=== PATIENT | male | born 1960 | race African-American/Black ===

== ENCOUNTER 2019-05-01 22:51 | Inpatient (IN) | payer OTHER ==
[~2019-05-01] VITALS: Ht 177.8 cm; Wt 117.9 kg
[2019-05-01] MEDS ORDERED: methylPREDNISolone SOD SUCC 125 MG/2ML VIAL ONE (22:59)
[2019-05-01] MEDS ORDERED: methylPREDNISolone SOD SUCC 125 MG/2ML VIAL IV ONE (23:00)
[2019-05-01] MEDS ORDERED: ALBUTEROL FS 2.5 MG/3 ML VIAL.NEB NEB ONE (23:00)
[2019-05-01] MEDS ORDERED: IPRATROPIUM NEB FS 0.5 MG/2.5 ML AMPUL.NEB NEB ONE (23:00)
--- NOTE | 2019-05-01 23:00 | NUR ---
PT [id number] C/O SOB, PER EMS PT GIVEN TREATMENT EN ROUTE, PT AXO4. PT SPEAKING IN 4-5 WORD SENTENCES. PT PUT ON THE MERCHANDISE FLOW MANAGER AND PULSE OX.
--- NOTE | 2019-05-01 23:01 | NUR ---
RT AT BEDSIDE FOR BREATHING TREATMENT.
[2019-05-01] MEDS ORDERED: IPRATROPIUM NEB FS 0.5 MG/2.5 ML AMPUL.NEB ONE (23:03)
[2019-05-01] MEDS ORDERED: ALBUTEROL FS 2.5 MG/3 ML VIAL.NEB ONE (23:03)
[2019-05-01 23:14] LABS: BASOPHILS # (AUTO) 0.1 /CMM (0.0-0.2); BASOPHILS % (AUTO) 1.2 % (0.0-2.0); HEMOGLOBIN 17.3 g/dL (13.5-17.5); LYMPHOCYTES # (AUTO) 1.9 /CMM (0.8-4.8)
[2019-05-01 23:21] LABS: CALCIUM, SERUM 8.5 mg/dL (8.5-10.1); POTASSIUM 4.1 mmol/L (3.5-5.1)
[2019-05-01 23:24] LABS: EOSINOPHILS % (AUTO) 2.2 % (0.0-6.0); HEMATOCRIT 51 % (39-51); LYMPHOCYTES % (AUTO) 17.5 % (20.0-44.0); MEAN CORPUSCULAR HGB CONC 34 g/dl (31.0-36.0); MEAN CORPUSCULAR VOLUME 84 fL (80-96); MONOCYTES # (AUTO) 0.8 /CMM (0.1-1.30); MONOCYTES % (AUTO) 7.8 % (2.0-12.0); NEUTROPHILS # (AUTO) 7.7 /CMM (1.8-8.9); NEUTROPHILS % (AUTO) 71.3 % (43.0-81.0); PLATELET COUNT (AUTO) 215 /CMM (150-450); RED BLOOD CELL COUNT(AUTO) 6.04 MIL/uL (4.5-6.0); WHITE BLOOD COUNT (AUTO) 10.8 K/uL (4.3-11.0)
[2019-05-01 23:34] LABS: ALBUMIN 3.1 g/dL (3.4-5.0); BILIRUBIN,DIRECT 0.2 mg/dL (0.0-0.2); BILIRUBIN,TOTAL 0.5 mg/dL (0.2-1.0); TOTAL PROTEIN, SERUM 6.5 g/dL (6.4-8.2)
[2019-05-02] MEDS ORDERED: ASPIRIN 325 MG TABLET PO ONE
--- NOTE | 2019-05-02 00:42 | NUR ---
PT RESTING IN BED, NAD NOTED. WILL CONTINUE TO MONITOR.
[2019-05-02] MEDS ORDERED: MAGNESIUM HYDROXIDE 30 ML UDC PO PRN (01:00)
[2019-05-02] MEDS ORDERED: ALBUTEROL FS 2.5 MG/3 ML VIAL.NEB NEB PRN (01:00)
[2019-05-02] MEDS ORDERED: ZOLPIDEM TARTRATE 5 MG TABLET PO PRN (01:00)
[2019-05-02] MEDS ORDERED: HYDROCODONE/APAP 5/325MG 1 EACH TABLET PO PRN (01:00)
[2019-05-02] MEDS ORDERED: ACETAMINOPHEN 325 MG TABLET PO PRN (01:00)
[2019-05-02] MEDS ORDERED: Z GUARD REMEDY 2 OZ OINT TP PRN (01:00)
[2019-05-02] MEDS ORDERED: MAG HYDROX/AL HYDROX/SIMETH 30 ML UDC PO PRN (01:00)
[2019-05-02] MEDS ORDERED: IPRATROPIUM NEB FS 0.5 MG/2.5 ML AMPUL.NEB NEB PRN (01:00)
[2019-05-02] MEDS ORDERED: ONDANSETRON HCL/PF 4 MG/2 ML VIAL IVP PRN (01:00)
--- NOTE | 2019-05-02 01:15 | NUR ---
REPORT GIVEN TO JOAQUÍN HONG FOR GASTON.
--- NOTE | 2019-05-02 01:45 | NUR ---
RN ADMITTING NOTES RECEIVED REPORT FROM MAIN LINE ASSEMBLER DELFINO. Pt ARRIVED TO THE FLOOR VIA GURNEY, WAS ABLE TO AMB TO THE ROOM BED WITH STEADY GAIT. Pt IS A/OX4, VERBAL, ABLE TO MAKE NEEDS KNOWN. Pt PLACED ON O2 3L VIA NC D/T SOB. IV ACCESS ON R WRIST #20G. PLACED ON TELE MONITOR; READING SR 90. SAFETY MEASURES IN PLACE. BED LOW, LOCKED, HOB ELEVATED, SIDE RAILS UP, CALL LIGHT AND BEDSIDE TABLE WITHIN REACH. WILL CONTINUE TO MONITOR Pt's CONDITION AND SAFETY THROUGHOUT THE REST OF THE SHIFT.
[2019-05-02] MEDS ORDERED: DEXTROSE 50%-WATER 50 ML DISP.SYRIN IV PRN (03:30)
[2019-05-02] MEDS ORDERED: CARV12.5 PO (03:48)
[2019-05-02] MEDS ORDERED: FURO-144 PO (03:48)
[2019-05-02] MEDS ORDERED: LOSA25TA27 PO (03:48)
[2019-05-02] MEDS ORDERED: INSU100I40 SQ (03:48)
[2019-05-02] MEDS ORDERED: ASPI-1152 PO (03:48)
[2019-05-02] MEDS ORDERED: POTA-88 PO (03:48)
[2019-05-02] MEDS ORDERED: ATOR40TA PO (03:48)
[2019-05-02] MEDS ORDERED: ISOS60TA4 PO (03:48)
[2019-05-02] MEDS ORDERED: INSU100I26 SQ (03:48)
[2019-05-02 04:00] VITALS: BP 141/103
--- NOTE | 2019-05-02 06:35 | NUR ---
RN NOTES AC ACCUCHECK BG 177. ADMINISTERED 3UN OF INSULIN PER SLIDING SCALE.
[2019-05-02] MEDS: BLOOD SUGAR DIAGNOSTIC 1 EACH STRIP IN SCH ×4 (06:45→21:28)
[2019-05-02] MEDS: INSULIN REGULAR, HUMAN 100 UNIT/ML 3 ML VIAL SQ PRN ×4 (06:46→21:27)
--- NOTE | 2019-05-02 06:55 | NUR ---
RN CLOSING NOTES NO SIGNIFICANT CHANGES IN Pt's CONDITION. Pt REMAINS STABLE PER BASELINE AT THIS TIME. NO S/S OF ACUTE DISTRESS NOTED DURING THE NIGHT. Pt's SOB HAS RESOLVED. Pt HAS NOT C/O ANY CP OR SOB DURING THE NIGHT. Pt IS RESTING IN BED WITH UNLABORED RESPIRATIONS, WITH EQUAL CHEST RISE AND FALL. ON 3L O2 VIA NC. ALL NEEDS MET AND ATTENDED TO. SAFETY MEASURES IN PLACE. WILL ENDORSE TO DAYSHIFT RN FOR Pt's GASTON.
[2019-05-02] MEDS ORDERED: BLOOD SUGAR DIAGNOSTIC 1 EACH STRIP IN SCH ×2 (07:30)
--- NOTE | 2019-05-02 07:45 | NUR ---
RN OPENING NOTES RECEIVED PATIENT IN BED RESTING COMFORTABLY IN MODERATE HIGH BACK REST. ON RA, NO SOB NOTED AT THIS TIME. IV ACCESS ON RIGHT WRIST #20, CURRENTLY ON SL. PATENT AND INTACT. SAFETY MEASURES IN PLACE, BED IN LOW LOCKED POSITION WITH SIDE RAILS UP X2. CALL LIGHT WITHIN REACH. WILL CONTINUE TO MONITOR.
[2019-05-02 08:00] VITALS: BP 137/87
[2019-05-02] MEDS: FUROSEMIDE 40 MG/4 ML VIAL IV SCH ×3 (08:56→15:51)
[2019-05-02] MEDS: methylPREDNISolone SOD SUCC 40 MG/ML VIAL IV SCH ×3 (08:58→16:13)
[2019-05-02] MEDS: ASPIRIN EC 81 MG TABLET.DR PO SCH (08:58)
[2019-05-02] MEDS: hydrALAZINE HCL 50 MG TABLET PO SCH ×3 (08:58→16:13)
[2019-05-02] MEDS: ENOXAPARIN SODIUM 40 MG/0.4 ML DISP.SYRIN SQ SCH (09:01)
[2019-05-02] MEDS: NITROGLYCERIN 30 GM TUBE TP SCH ×3 (09:13→20:38)
[2019-05-02 09:18] LABS: THYROID STIMULATING HORMONE 0.535 uIU/mL (0.358-3.74)
[2019-05-02 16:00] VITALS: BP 140/90
--- NOTE | 2019-05-02 18:34 | NUR ---
MS RN CLOSING NOTES PATIENT IN BED RESTING COMFORTABLY IN MODERATE HIGH BACK REST. ON OXYGEN 3LPM VIA NC, NO SOB NOTED AT THIS TIME. IV ACCESS ON RIGHT WRIST #20, CURRENTLY ON SL. PATENT AND INTACT. SAFETY MEASURES IN PLACE, BED IN LOW LOCKED POSITION WITH SIDE RAILS UP X2. CALL LIGHT WITHIN REACH. WILL ENDORSED TO PLATE COLORER NURSE FOR GASTON.
--- NOTE | 2019-05-02 19:30 | NUR ---
RN MS OPENING NOTES RECEIVED PATIENT IN BED AWAKE, ALERT AND ORIENTED X4, VERBALLY RESPONSIVE, ABLE TO MAKE NEEDS KNOWN. BREATHING EVEN AND UNLABORED. NO SOB NOTED. ON 3LPM VIA NC. DENIES ANY PAIN OR DISCOMFORT. NO CHEST PAIN. NO N/V. IV ON RIGHT WRIST INTACT AND PATENT. SKIN DRY WARM TO TOUCH. AFEBRILE. ALL OTHER NEEDS ATTENDED TO. SAFETY MEASURES IN PLACE. CALL LIGHT WITHIN REACH. WILL CONTINUE TO MONITOR.
[2019-05-02 20:00] VITALS: BP 148/91
--- NOTE | 2019-05-02 20:12 | NUR ---
Met with patient, states he lives alone locally in [facility]. He is ambulatory and independent with adl's. Denies having DME or homehealth services. His pcp is in [facility] and he is planning to switch his insurance group. States he will need assistance with transportation to return home upon discharge. Addendum: 05/02/19 at 2012 by YOHAN REBOLLEDO RN Amended: Links added.
--- NOTE | 2019-05-02 20:38 | NUR ---
RN MS NOTES PATIENT REFUSED NITRO OINTMENT. PER PATIENT, IT MAKES HIS BLOOD PRESSURE "REALLY LOW". INFORMED PATIENT THAT I CAN CHECK HIS BLOOD PRESSURE THROUGHOUT THE NIGHT BUT PATIENT STILL REFUSED. EXPLAINED RISKS AND BENEFITS BUT STILL REFUSED. WILL CONTINUE TO MONITOR.
--- NOTE | 2019-05-03 01:00 | NUR ---
RN MS NOTES PATIENT SLEEPING. NOT IN ANY DISTRESS. BREATHING EVEN AND UNLABORED. NO S/S OF PAIN OR DISCOMFORT. WILL CONTINUE TO MONITOR.
[2019-05-03 06:27] LABS: BASOPHILS % (AUTO) 0.2 % (0.0-2.0); HEMATOCRIT 56 % (39-51); HEMOGLOBIN 18.8 g/dL (13.5-17.5); LYMPHOCYTES % (AUTO) 5.7 % (20.0-44.0); MEAN CORPUSCULAR HGB CONC 33 g/dl (31.0-36.0); MEAN CORPUSCULAR VOLUME 84 fL (80-96); MONOCYTES # (AUTO) 0.9 /CMM (0.1-1.30); MONOCYTES % (AUTO) 5.4 % (2.0-12.0); NEUTROPHILS # (AUTO) 15.5 /CMM (1.8-8.9); NEUTROPHILS % (AUTO) 88.7 % (43.0-81.0); PLATELET COUNT (AUTO) 241 /CMM (150-450); RED BLOOD CELL COUNT(AUTO) 6.71 MIL/uL (4.5-6.0); WHITE BLOOD COUNT (AUTO) 17.5 K/uL (4.3-11.0)
[2019-05-03] MEDS: BLOOD SUGAR DIAGNOSTIC 1 EACH STRIP IN SCH ×2 (06:43→12:17)
[2019-05-03] MEDS: INSULIN REGULAR, HUMAN 100 UNIT/ML 3 ML VIAL SQ PRN ×2 (06:44→12:18)
[2019-05-03 06:49] LABS: BILIRUBIN,TOTAL 0.6 mg/dL (0.2-1.0); CALCIUM, SERUM 8.9 mg/dL (8.5-10.1); CREATININE 0.8 mg/dL (0.6-1.3); PHOSPHORUS 3.7 mg/dL (2.5-4.9); POTASSIUM 3.5 mmol/L (3.5-5.1); TOTAL PROTEIN, SERUM 6.8 g/dL (6.4-8.2)
[2019-05-03 06:50] LABS: THYROID STIMULATING HORMONE 0.333 uIU/mL (0.358-3.74)
--- NOTE | 2019-05-03 06:55 | NUR ---
RN MS CLOSING NOTES PATIENT RESTING IN BED. NO ACUTE CHANGES THROUGHOUT SHIFT. BREATHING EVEN AND UNLABORED. NO SOB NOTED. ON 3LPM VIA NC. NO COMPLAINTS OF PAIN OR DISCOMFORT. NO CHEST PAIN. IV ON RIGHT WRIST INTACT AND PATENT. ALL OTHER NEEDS ATTENDED TO. SAFETY MEASURES IN PLACE. CALL LIGHT WITHIN REACH. WILL ENDORSE TO ONCOMING NURSE FOR GASTON.
--- NOTE | 2019-05-03 07:35 | NUR ---
MS RN NOTES PATIENT IN BED ALERT ORIENTED X 4. NO ACUTE DISTRESS NOTED. BREATHING UNLABORED. NO SOB NOTED. IV ACCESS PATENT, NO REDNESS, NO SWELLING NOTED. SAFETY MEASURES IN PLACE, CALL LIGHT WITHIN REACH. WILL CONTINUE TO MONITOR ACCORDINGLY.
[2019-05-03 07:38] LABS: LYMPHOCYTES % (MANUAL) 8 % (16-48); MONOCYTES % (MANUAL) 2 % (0-11.0); NEUTROPHILS % (MANUAL) 90 (42-76)
[2019-05-03 08:00] VITALS: BP 125/91
[2019-05-03] MEDS ORDERED: POTASSIUM CHLORIDE 20 MEQ TAB.PRT.SR PO SCH (09:00)
[2019-05-03] MEDS ORDERED: FUROSEMIDE 40 MG TABLET PO SCH (09:00)
[2019-05-03] MEDS ORDERED: ISOSORBIDE DINITRATE (20MG) 20 MG TABLET PO SCH (09:00)
[2019-05-03] MEDS: ENOXAPARIN SODIUM 40 MG/0.4 ML DISP.SYRIN SQ SCH (09:13)
[2019-05-03] MEDS: methylPREDNISolone SOD SUCC 40 MG/ML VIAL IV SCH ×2 (09:14→12:17)
[2019-05-03] MEDS: ASPIRIN EC 81 MG TABLET.DR PO SCH (09:15)
[2019-05-03] MEDS: hydrALAZINE HCL 50 MG TABLET PO SCH ×2 (09:18→12:16)
--- NOTE | 2019-05-03 12:05 | NUR ---
MS RN NOTES SEEN AND EVALUATED BY SLY JACOBS NP WITH NEW ORDERS MADE, NOTED AND CARRIED OUT.
[2019-05-03] MEDS ORDERED: PRED20TA PO (12:11)
[2019-05-03] MEDS ORDERED: HYDR-4077 PO (12:11)
[2019-05-03] MEDS ORDERED: ALBU18HF2 INH (12:11)
[2019-05-03 12:16] VITALS: BP 118/75
--- NOTE | 2019-05-03 14:10 | NUR ---
MS RN NOTES PATIENT DISCHARGED HOME WITH STABLE VITAL SIGNS, NO ACUTE DISTRESS NOTED. BREATHING UNLABORED , NO SOB NOTED. DISCHARGE INSTRUCTIONS GIVEN TO THE PATIENT INCLUDING FOLLOW UP APPOINTMENT AND NEW PRESCRIPTIONS, VERBALIZED UNDERSTANDING. ALL BELONGINGS ACCOUNTED FOR INCLUDING HOME MEDICATIONS FROM PHARMACY. IV ACCESS REMOVED, NO REDNESS, NO SWELLING, NO BLEEDING NOTED. SKIN IS INTACT. ASSISTED TO THE LOBBY, PICKED UP VIA PRIVATE CAR BY [employer] IN STABLE CONDITION.
== END 2019-05-03 14:10 | disposition home or self-care (01) | DRG 194 ==
LOC: ER 22:53 → TELE 05-02 00:48 → MED 05-02 12:27
PROVIDERS: ADMIT Nurse Practitioner Acute Care; ATTEND Nurse Practitioner Acute Care
DX: I11.0 Hypertensive heart disease with heart failure (principal); I21.A1 Myocardial infarction type 2; J44.1 Chronic obstructive pulmonary disease with (acute) exacerbation; I50.23 Acute on chronic systolic (congestive) heart failure; E11.9 Type 2 diabetes mellitus without complications; E66.9 Obesity, unspecified; F17.210 Nicotine dependence, cigarettes, uncomplicated; Z68.37 Body mass index [BMI] 37.0-37.9, adult; G47.33 Obstructive sleep apnea (adult) (pediatric); Z79.4 Long term (current) use of insulin
CPT/HCPCS: 36415; 71045-TC; 80048-TC; 80053-TC; 80061-TC; 80076-TC; 82962-TC; 83735-TC; 83880; 84100-TC; 84439-TC; 84443-TC; 84484-TC; 85025-TC; 87081-TC; 93307-TC; G0378; J1650; J1815; J1940; J2920; J2930

== ENCOUNTER 2019-09-24 08:29 | Inpatient (IN) | payer OTHER ==
[~2019-09-24] VITALS: Ht 177.8 cm; Wt 120.2 kg
[~2019-09-24 08:29] MED LIST: ALBU18HF2 INH; ASPI-1152 PO; ATOR40TA PO; CARV12.5 PO; FURO-144 PO; HYDR-4077 PO; INSU100I26 SQ; INSU100I40 SQ; ISOS60TA4 PO; LOSA25TA27 PO; POTA-88 PO; PRED20TA PO
--- NOTE | 2019-09-24 10:45 | NUR ---
RN ADMITTING NOTES ADMITTED A 59 YEARS OLD, M FROM [place], ACCOMPANIED BY 2 AMBULANCE STAFF, A/ O X4. ABLE TO MAKE NEEDS KNOWN. NO COMPLAIN OF PAIN OR DISCOMFORT AT THIS TIME. PATIENT ORIENTED TO UNIT, ROOM AND STAFF. ON OXYGEN 2LPM VIA NC. NO SIGNS OF DISTRESS NOTED AT THIS TIME. V/S TAKEN AND RECORDED. PHYSICAL ASSESSMENT DONE, PHOTOS OF SKIN ISSUES FILED ON CHART. IV ACCESS ON R HAND# 20, SL. ON TELE MONITORING WITH CURRENT READING OF ST WITH HR OF 107. SAFETY MEASURES INITIATED, BED PLACED IN LOWEST LOCKED POSITION WITH SIDE RAILS UP X2. CALL LIGHT PLACED WITHIN EASY REACH. WILL CONTINUE TO MONITOR.
[2019-09-24] MEDS ORDERED: INSU100V36 SQ (10:50)
[2019-09-24] MEDS ORDERED: LISI-607 PO (10:50)
[2019-09-24] MEDS ORDERED: SPIR25TA6 PO (10:50)
[2019-09-24 12:00] VITALS: BP 104/74
[2019-09-24] MEDS ORDERED: MAGNESIUM HYDROXIDE 30 ML UDC PO PRN (13:30)
[2019-09-24] MEDS ORDERED: MAG HYDROX/AL HYDROX/SIMETH 30 ML UDC PO PRN (13:30)
[2019-09-24] MEDS ORDERED: ALBUTEROL FS 2.5 MG/0.5 ML VIAL.NEB NEB PRN (13:30)
[2019-09-24] MEDS ORDERED: DEXTROSE 50%-WATER 50 ML DISP.SYRIN IV PRN (13:30)
[2019-09-24] MEDS ORDERED: Z GUARD REMEDY 2 OZ OINT TP PRN (13:30)
[2019-09-24] MEDS ORDERED: ONDANSETRON HCL/PF 4 MG/2 ML VIAL IVP PRN (13:30)
[2019-09-24] MEDS ORDERED: LORAZEPAM 1 MG TABLET PO PRN (13:30)
[2019-09-24] MEDS ORDERED: ACETAMINOPHEN 325 MG TABLET PO PRN (13:30)
[2019-09-24] MEDS: FUROSEMIDE 40 MG/4 ML VIAL IV SCH ×2 (13:41→17:00)
[2019-09-24 14:10] LABS: HEMATOCRIT 53 % (39-51); HEMOGLOBIN 17.5 g/dL (13.5-17.5); LYMPHOCYTES # (AUTO) 0.4 /CMM (0.8-4.8); LYMPHOCYTES % (AUTO) 3.3 % (20.0-44.0); MEAN CORPUSCULAR HGB CONC 33 g/dl (31.0-36.0); MEAN CORPUSCULAR VOLUME 85 fL (80-96); MONOCYTES # (AUTO) 0.1 /CMM (0.1-1.30); MONOCYTES % (AUTO) 0.7 % (2.0-12.0); NEUTROPHILS # (AUTO) 10.3 /CMM (1.8-8.9); PLATELET COUNT (AUTO) 217 /CMM (150-450); RED BLOOD CELL COUNT(AUTO) 6.26 MIL/uL (4.5-6.0); WHITE BLOOD COUNT (AUTO) 10.7 K/uL (4.3-11.0)
[2019-09-24 14:17] LABS: CALCIUM, SERUM 8.6 mg/dL (8.5-10.1); CREATININE 1.3 mg/dL (0.6-1.3); POTASSIUM 4.3 mmol/L (3.5-5.1)
[2019-09-24 14:34] LABS: LYMPHOCYTES % (MANUAL) 4 % (16-48); MONOCYTES % (MANUAL) 1 % (0-11.0); NEUTROPHILS % (MANUAL) 95 (42-76)
[2019-09-24] MEDS: ALBUTEROL HALF STRENGTH 1.25 MG/3 ML VIAL.NEB NEB SCH ×2 (15:30→20:17)
[2019-09-24] MEDS ORDERED: IPRATROPIUM NEB FS 0.5 MG/2.5 ML AMPUL.NEB NEB PRN (15:30)
[2019-09-24 16:00] VITALS: BP 108/58
[2019-09-24] MEDS: BLOOD SUGAR DIAGNOSTIC 1 EACH STRIP VI SCH ×2 (16:59→21:42)
[2019-09-24] MEDS: CARVEDILOL 12.5 MG TABLET PO SCH (17:00)
[2019-09-24] MEDS: INSULIN REGULAR, HUMAN 100 UNIT/ML 3 ML VIAL SQ PRN (17:03)
[2019-09-24] MEDS: methylPREDNISolone SOD SUCC 125 MG/2ML VIAL IV SCH ×2 (17:04→20:55)
--- NOTE | 2019-09-24 18:51 | NUR ---
TELE CLOSING NOTES PATIENT IN BED RESTING COMFORTABLY IN MODERATE HIGH BACK REST, A/ O X4. ABLE TO MAKE NEEDS KNOWN. NO SIGNS OF DISTRESS NOTED THROUGHOUT THE SHIFT. ON OXYGEN 2LPM VIA NC. IV ACCESS ON R HAND# 20, SL. ON TELE MONITORING WITH CURRENT READING OF ST WITH HR OF 100'S. SAFETY MEASURES IN PLACE, BED IN LOWEST LOCKED POSITION WITH SIDE RAILS UP X2. CALL LIGHT WITHIN EASY REACH. WILL ENDORSE TO JACK OF ALL TRADES NURSE FOR GASTON.
--- NOTE | 2019-09-24 19:45 | NUR ---
BANKMAN OPENING NOTES RECEIVED PATIENT FROM MORNING SHIFT ALERT AND ORIENTED X 4. VERBALLY RESPONSIVE AND ABLE TO FOLLOW DIRECTIONS. BREATHING REGULAR AND UNLABORED ON OXYGEN AT 2L/MIN VIA NASAL CANNULA. RIGHT HAND G20 IV LINE INTACT AND PATENT, FLUSHING WELL WITH NO BLEEDING OR S/S OF INFECTION/INFILTRATION NOTED. BODY ASSESSMENT DONE, SEEN WITH SKIN DRYNESS BUT REMAINED INTACT AND CLEAN. NO COMPLAINTS OF PAIN/DISCOMFORT REPORTED OF THE TIME. BED LOW AND LOCKED ON SEMI FOWLERS POSITION. CALL LIGHT IN REACH. WILL CONTINUE TO MONITOR.
[2019-09-24] MEDS: HYDROCODONE/APAP 5/325MG 1 EACH TABLET PO PRN (21:27)
--- NOTE | 2019-09-24 21:30 | NUR ---
SENIOR MANAGER ASSET PROTECTION NOTES COMPLAINED OF 8/10 LOWER BACK PAIN. NORCO 5/325 GIVEN BY MOUTH. NON-PHARMACOLOGICAL INTERVENTIONS PROVIDED. VITAL SIGNS CLOSELY MONITORED.
[2019-09-24] MEDS: *INSULIN REGULAR(HUMULIN R)HUM 100 UNIT/ML VIAL SQ PRN (21:43)
[2019-09-24 22:00] VITALS: BP 88/53
--- NOTE | 2019-09-24 22:00 | NUR ---
CHICKEN FANCIER NOTES BS 188mg/dl, 3UNITS REGULAR INSULIN GIVEN SQ. SNACKS PROVIDED. WILL CONTINUE TO MONITOR.
[2019-09-25] MEDS: ALBUTEROL HALF STRENGTH 1.25 MG/3 ML VIAL.NEB NEB SCH ×6 (00:07→20:32)
[2019-09-25] MEDS: HYDROCODONE/APAP 5/325MG 1 EACH TABLET PO PRN ×4 (02:36→20:07)
--- NOTE | 2019-09-25 02:45 | NUR ---
POULTRY FARM LABORER NOTES COMPLAINED OF 8/10 LOWER BACK PAIN. NORCO 5/325 GIVEN BY MOUTH. NON-PHARMACOLOGICAL INTERVENTIONS PROVIDED. VITAL SIGNS WNL. WILL CONTINUE TO MONITOR.
[2019-09-25] MEDS: CEFTRIAXONE 1 G in IV D5W 50 ML IV SCH (04:12)
--- NOTE | 2019-09-25 06:30 | NUR ---
CITY PLANNING AIDE CLOSING NOTES PATIENT IN BED ALERT AND ORIENTED X 4. VERBALLY RESPONSIVE AND ABLE TO FOLLOW DIRECTIONS. BREATHING REGULAR AND UNLABORED ON OXYGEN AT 2L/MIN VIA NASAL CANNULA. RIGHT HAND G20 IV LINE INTACT AND FLUSHING WELL. ON IV ANTIBIOTIC WITH NO ADVERSE REACTIONS NOTED. NO COMPLAINTS OF PAIN/DISCOMFORT REPORTED OF THE TIME. BED LOW AND LOCKED ON SEMI FOWLERS POSITION. CALL LIGHT IN REACH. WILL ENDORSE TO MORNING SHIFT FOR GASTON.
[2019-09-25 07:18] LABS: BASOPHILS % (AUTO) 0.1 % (0.0-2.0); HEMATOCRIT 50 % (39-51); HEMOGLOBIN 16.3 g/dL (13.5-17.5); LYMPHOCYTES # (AUTO) 0.6 /CMM (0.8-4.8); LYMPHOCYTES % (AUTO) 4.3 % (20.0-44.0); MEAN CORPUSCULAR HGB CONC 33 g/dl (31.0-36.0); MEAN CORPUSCULAR VOLUME 84 fL (80-96); MONOCYTES # (AUTO) 0.4 /CMM (0.1-1.30); MONOCYTES % (AUTO) 2.5 % (2.0-12.0); NEUTROPHILS # (AUTO) 13.7 /CMM (1.8-8.9); NEUTROPHILS % (AUTO) 93.1 % (43.0-81.0); PLATELET COUNT (AUTO) 235 /CMM (150-450); WHITE BLOOD COUNT (AUTO) 14.7 K/uL (4.3-11.0)
--- NOTE | 2019-09-25 07:30 | NUR ---
SCOURING PADS SUPERVISOR NOTES PT IN BED, AWAKE, ALERT AND ORIENTED, NOT IN DISTRESS, STATED THAT HIS BREATHING IS BETTER TODAY, WITH COMPLAINT OF KNEES AND BACK PAIN, NEEDS ATTENDED, CALL LIGHT WITHIN REACH.
[2019-09-25 07:31] LABS: CALCIUM, SERUM 8.5 mg/dL (8.5-10.1); PHOSPHORUS 3.5 mg/dL (2.5-4.9); POTASSIUM 3.9 mmol/L (3.5-5.1)
[2019-09-25 08:00] VITALS: BP 126/93
[2019-09-25] MEDS: methylPREDNISolone SOD SUCC 125 MG/2ML VIAL IV SCH ×4 (08:12→20:07)
[2019-09-25] MEDS: SPIRONOLACTONE 25 MG TABLET PO SCH (08:12)
[2019-09-25] MEDS: ASPIRIN EC 81 MG TABLET.DR PO SCH (08:12)
[2019-09-25] MEDS: CARVEDILOL 12.5 MG TABLET PO SCH ×2 (08:12→16:15)
[2019-09-25] MEDS: FUROSEMIDE 40 MG/4 ML VIAL IV SCH ×5 (08:12→20:07)
[2019-09-25] MEDS: INSULIN REGULAR, HUMAN 100 UNIT/ML 3 ML VIAL SQ PRN ×3 (08:21→16:50)
[2019-09-25] MEDS: BLOOD SUGAR DIAGNOSTIC 1 EACH STRIP VI SCH ×4 (08:22→23:28)
[2019-09-25] MEDS: LISINOPRIL (5MG) 5 MG TABLET PO SCH (09:00)
[2019-09-25 12:00] VITALS: BP 100/79
[2019-09-25] MEDS: POTASSIUM CHLORIDE 20 MEQ TAB.PRT.SR PO SCH ×3 (12:46→16:19)
[2019-09-25] MEDS: ATORVASTATIN 40 MG TABLET PO SCH (12:46)
--- NOTE | 2019-09-25 13:00 | NUR ---
MATZO FORMING MACHINE OPERATOR NOTES PT AWAKE, SITTING IN HIS CHAIR, PAIN MEDS GIVEN FOR PAIN MANAGEMENT, COMPLIANT WITH MEDICATIONS, CALL LIGHT WITHIN REACH, SEEN BY DR. GRACIA, PLAN OF CARE DISCUSSED WITH PT, VERBALIZED UNDERSTANDING.
[2019-09-25 16:00] VITALS: BP 98/71
--- NOTE | 2019-09-25 16:20 | NUR ---
BILINGUAL TEACHER NOTES LASIX GIVEN PER ORDER OF DR. GRACIA.
--- NOTE | 2019-09-25 17:55 | NUR ---
REAL ESTATE INSTRUCTOR NOTES PT AWAKE, SITTING IN HIS CHAIR, NO COMPLAINT OF PAIN AT THIS TIME, RESPIRATIONS NORMAL, CALL LIGHT WITHIN REACH, SEEN BY DR. RUSSO, PLAN OF CARE DISCUSSED WITH PT. VERBALIZED UNDERSTANDING, NEEDS ATTENDED, PM MEDS GIVEN.
[2019-09-25 20:00] VITALS: BP 114/64
--- NOTE | 2019-09-25 20:08 | NUR ---
tele/rn notes PATIENT REPORTED PAIN 9/10 IN KNEE AND LOWER BACK WHILE SITTING, ALERT, ORIENTED X3, OFFLOAD, RESPIRATIONS EVEN AND UNLABORED, BED LOCKEC,NORCO 5325 MG PO TO BE GIVEN, B/P CHECK AND WNL. WILL MONITOR.RECEIVED ENDORSEMENT FROM AM RN FOR GASTON
--- NOTE | 2019-09-25 21:39 | NUR ---
TELE/RN NOTES PATIENT WITH ST AT 101. ALERT, ORIENTED, REPORTED RIGHT HAND IV SITE SOME REDNESS, TO REINSERT NEW IV PREFERED TO HAVE IT LATER TIME AT THE SAME SITE WILL ASSESS AND CHECK AND MONITOR FOR ANY CHANGES.
[2019-09-25] MEDS: *INSULIN REGULAR(HUMULIN R)HUM 100 UNIT/ML VIAL SQ PRN (23:37)
--- NOTE | 2019-09-25 23:47 | NUR ---
TELE/RN NOTES PATIENT WAS INFORMED ABOUT MANAGING EXACERBATION AND DM MANAGEMENT, WITH MD ORDER FOR STRICT INTAKE AND OUTPUT, VERBALIZED UNDERSTANDING BUT NON COMPLIANT SON HIEU A LARGE AMOUNT OF JUICE AT BEDSIDE AND ALSO PATIENT UNABLE TO FOLLOW DIETARY ORDER EVEN WITH CONSSTANT EDUCATION, BLOOD SUGAR CHECK AT PREFERED TIME AND RESULT HIGH THAT PATIENT STATED HE GETS TO HAVE 10 UNITS OF REGULAR INSULIN 3 X A DAY AND TWICE A DAY OF 30 UNIT WITH LONG ACTING INSULIN. REPORTED THAT HE MIGHT BE LEAVING [place].
[2019-09-26] VITALS: BP 115/44
[2019-09-26] MEDS: ALBUTEROL HALF STRENGTH 1.25 MG/3 ML VIAL.NEB NEB SCH ×5 (00:18→15:14)
[2019-09-26] MEDS: HYDROCODONE/APAP 5/325MG 1 EACH TABLET PO PRN ×2 (01:17→08:43)
[2019-09-26] MEDS: CEFTRIAXONE 1 G in IV D5W 50 ML IV SCH (04:09)
--- NOTE | 2019-09-26 07:36 | NUR ---
TELE/RN CLOSING NOTES PATIENT AWAKE, ALERT X3, ABLE TO VERBALIZE NEEDS, ALL NEEDS ATTENDED, CALL LIGHTS WITHIN REACH. BED LOCKED. ENDORSED TO AM RN FOR GASTON.
[2019-09-26] MEDS: BLOOD SUGAR DIAGNOSTIC 1 EACH STRIP VI SCH ×2 (07:47→12:24)
[2019-09-26 07:58] LABS: BASOPHILS % (AUTO) 0.1 % (0.0-2.0); HEMATOCRIT 53 % (39-51); HEMOGLOBIN 17.5 g/dL (13.5-17.5); LYMPHOCYTES # (AUTO) 0.9 /CMM (0.8-4.8); LYMPHOCYTES % (AUTO) 4.1 % (20.0-44.0); MEAN CORPUSCULAR HGB CONC 33 g/dl (31.0-36.0); MEAN CORPUSCULAR VOLUME 85 fL (80-96); MONOCYTES # (AUTO) 0.6 /CMM (0.1-1.30); MONOCYTES % (AUTO) 2.7 % (2.0-12.0); NEUTROPHILS # (AUTO) 20.3 /CMM (1.8-8.9); NEUTROPHILS % (AUTO) 93.1 % (43.0-81.0); PLATELET COUNT (AUTO) 249 /CMM (150-450); RED BLOOD CELL COUNT(AUTO) 6.21 MIL/uL (4.5-6.0); WHITE BLOOD COUNT (AUTO) 21.9 K/uL (4.3-11.0)
[2019-09-26 08:00] VITALS: BP 106/53
[2019-09-26] MEDS: INSULIN REGULAR, HUMAN 100 UNIT/ML 3 ML VIAL SQ PRN ×2 (08:12→12:30)
[2019-09-26 08:17] LABS: BILIRUBIN,TOTAL 0.5 mg/dL (0.2-1.0); CALCIUM, SERUM 8.7 mg/dL (8.5-10.1); MAGNESIUM 2.2 mg/dL (1.8-2.4); PHOSPHORUS 3.1 mg/dL (2.5-4.9); POTASSIUM 4.5 mmol/L (3.5-5.1); TOTAL PROTEIN, SERUM 6.9 g/dL (6.4-8.2)
[2019-09-26] MEDS: CARVEDILOL 12.5 MG TABLET PO SCH (08:44)
[2019-09-26] MEDS: ASPIRIN EC 81 MG TABLET.DR PO SCH (08:44)
[2019-09-26] MEDS: ATORVASTATIN 40 MG TABLET PO SCH (08:45)
[2019-09-26] MEDS: methylPREDNISolone SOD SUCC 125 MG/2ML VIAL IV SCH ×2 (08:47→12:33)
[2019-09-26] MEDS: FUROSEMIDE 40 MG/4 ML VIAL IV SCH (08:49)
[2019-09-26] MEDS: LISINOPRIL (5MG) 5 MG TABLET PO SCH (09:00)
[2019-09-26] MEDS: SPIRONOLACTONE 25 MG TABLET PO SCH (09:00)
[2019-09-26] MEDS ORDERED: METOLAZONE 2.5 MG TABLET PO SCH (09:30)
[2019-09-26] MEDS ORDERED: BUMETANIDE INJ 16 MG in IV NS 0.9% 16 ML IV ONE (09:30)
[2019-09-26 13:28] VITALS: BP 101/71
--- NOTE | 2019-09-26 16:21 | NUR ---
SUBSTANCE ADDICTION COORDINATOR NOTES PATIENT LEFT AMA , DR CALLOWAY NOTIFIED. IV REMOVED, BELONGINGS RETURNED INCLUDE MEDS. SON AT THE BED SIDE AND HE IS GOING TO TRANSFER THE PATIENT.
--- NOTE | 2019-09-26 17:00 | NUR ---
STRIPING MACHINE OPERATOR NOTES RECEIVED A NOTE FROM WADE [employer] WITH [employer] JOHN PAUL. INFORMED PROFESSOR OF MARKETING TO FOLLOW UP WITH THE ORDER.
== END 2019-09-26 15:45 | disposition left against medical advice (07) | DRG 140 ==
LOC: TELE1 10:27
PROVIDERS: ADMIT Internal Medicine; ATTEND Internal Medicine
DX: J44.0 Chronic obstructive pulmonary disease with (acute) lower respiratory infection (principal); J96.01 Acute respiratory failure with hypoxia; I50.23 Acute on chronic systolic (congestive) heart failure; J15.9 Unspecified bacterial pneumonia; I42.8 Other cardiomyopathies; I11.0 Hypertensive heart disease with heart failure; I42.9 Cardiomyopathy, unspecified; E66.01 Morbid (severe) obesity due to excess calories; E11.9 Type 2 diabetes mellitus without complications; I25.10 Atherosclerotic heart disease of native coronary artery without angina pectoris; F17.210 Nicotine dependence, cigarettes, uncomplicated; J44.1 Chronic obstructive pulmonary disease with (acute) exacerbation; E78.5 Hyperlipidemia, unspecified; G47.33 Obstructive sleep apnea (adult) (pediatric); I25.2 Old myocardial infarction; Z79.4 Long term (current) use of insulin; F19.90 Other psychoactive substance use, unspecified, uncomplicated
CPT/HCPCS: 36415; 71045-TC; 80048-TC; 80053-TC; 80061-TC; 80305; 82962-TC; 83735-TC; 83880; 84100-TC; 84484-TC; 85025-TC; 87081-TC; 93307-TC; 94799-TC; A4216; G0378; J0696; J1815; J1940; J2930; J3490; J7050; J7060

== ENCOUNTER 2020-03-21 21:55 | Inpatient (IN) | payer OTHER ==
[~2020-03-21] VITALS: Ht 177.8 cm; Wt 126.1 kg
[~2020-03-21 21:55] MED LIST changes: -ALBU18HF2 INH; -HYDR-4077 PO; -INSU100I40 SQ; +INSU100V36 SQ; -ISOS60TA4 PO; +LISI-607 PO; -LOSA25TA27 PO; -PRED20TA PO; +SPIR25TA6 PO
--- NOTE | 2020-03-21 22:12 | NUR ---
PATIENT CAME TO ER BED 12 C/O NON-RADIATING LEFT SIDED CHEST PAIN 1x HOUR ACCOUNT AUDITOR. PATIENT STATES THAT HE IS HAVING SHORTNESS TO BREATH. PATIENT ALSO HAS COUGH. PATIENT IS GIVEN A MASK. PATIENT HAS A HISTORY OF CHF. AAOX4. BREATHING EVENLY AND UNLABORED ON ROOM AIR. CONNECTED TO MANAGER COMPETITIVE INTELLIGENCE.
[2020-03-21 22:24] LABS: BASOPHILS # (AUTO) 0.1 /CMM (0.0-0.2); BASOPHILS % (AUTO) 0.8 % (0.0-2.0); EOSINOPHILS % (AUTO) 1.5 % (0.0-6.0); HEMATOCRIT 53 % (39-51); LYMPHOCYTES # (AUTO) 1.6 /CMM (0.8-4.8); LYMPHOCYTES % (AUTO) 20.3 % (20.0-44.0); MEAN CORPUSCULAR HGB CONC 32 g/dl (31.0-36.0); MEAN CORPUSCULAR VOLUME 81 fL (80-96); MONOCYTES # (AUTO) 0.6 /CMM (0.1-1.30); MONOCYTES % (AUTO) 8.2 % (2.0-12.0); NEUTROPHILS # (AUTO) 5.4 /CMM (1.8-8.9); NEUTROPHILS % (AUTO) 69.2 % (43.0-81.0); PLATELET COUNT (AUTO) 172 /CMM (150-450); RED BLOOD CELL COUNT(AUTO) 6.56 MIL/uL (4.5-6.0); WHITE BLOOD COUNT (AUTO) 7.9 K/uL (4.3-11.0)
[2020-03-21 22:35] LABS: CALCIUM, SERUM 8.6 mg/dL (8.5-10.1); CREATININE 1.2 mg/dL (0.6-1.3)
[2020-03-21 22:48] LABS: ALBUMIN 2.8 g/dL (3.4-5.0); BILIRUBIN,DIRECT 0.3 mg/dL (0.0-0.2); TOTAL PROTEIN, SERUM 6.2 g/dL (6.4-8.2)
[2020-03-21] MEDS ORDERED: FUROSEMIDE 40 MG/4 ML VIAL ONE (23:28)
[2020-03-21] MEDS ORDERED: FUROSEMIDE 40 MG/4 ML VIAL IV ONE (23:30)
--- NOTE | 2020-03-22 00:56 | NUR ---
GOT BED 322-2
[2020-03-22] MEDS ORDERED: DEXTROSE 50%-WATER 50 ML DISP.SYRIN IV PRN (01:00)
[2020-03-22] MEDS ORDERED: HYDROCODONE/APAP 5/325MG 1 EACH TABLET PO PRN (01:00)
[2020-03-22] MEDS ORDERED: MAGNESIUM HYDROXIDE 30 ML UDC PO PRN (01:00)
[2020-03-22] MEDS ORDERED: MAG HYDROX/AL HYDROX/SIMETH 30 ML UDC PO PRN (01:00)
[2020-03-22] MEDS ORDERED: ONDANSETRON HCL/PF 4 MG/2 ML VIAL IVP PRN (01:00)
[2020-03-22] MEDS ORDERED: Z GUARD REMEDY 2 OZ OINT TP PRN (01:00)
[2020-03-22] MEDS ORDERED: ACETAMINOPHEN 325 MG TABLET PO PRN (01:00)
--- NOTE | 2020-03-22 02:17 | NUR ---
REPORT GIVEN TO ALLAN HONG FOR GASTON.
--- NOTE | 2020-03-22 02:56 | NUR ---
RN OPENING NOTE PATIENT TRANSFERRED FROM ER TO TELEMETRY UNIT ALERT ORIENTEDX4 VERBALLY RESPONSIVE ABLE TO MAKE NEEDS KNOWN,ON OXYGEN 4L/MIN VIA NASAL CANNULA, IV SITE ON LEFT HAND INTACT PATENT,HE COUGHS ,CALLED DR AND RECIEVED ORDER FOR COUGH SYRUP,CONTENT TO BOWEL AND BLADDER,CONTINUE TO MONITOR
--- NOTE | 2020-03-22 02:58 | NUR ---
PT TRANSFERRED TO ROOM IN STABLE CONDITION VIA ACLS PROTOCOL
[2020-03-22 03:43] VITALS: BP 113/77
[2020-03-22 04:00] VITALS: BP 116/80
[2020-03-22] MEDS: GUAIFENESIN 300 MG/15 ML UDC PO PRN ×3 (06:54→23:01)
--- NOTE | 2020-03-22 07:08 | NUR ---
RN CLOSING NOTE PATIENT REMAINS IN BED ALERT ORIENTED X4 VERBALLY RESPONSIVE NO SOB NOT ACUTE DISTRESS NOTED,STILL COUGHS,COUGH SYRUP GIVEN MD ORDERED,KEPT CLEAN AND DRY.ENDORSE NEXT COMING SHIFT FOR CONTINUATION OF CARE.
--- NOTE | 2020-03-22 07:29 | NUR ---
RN OPENING NOTE: Received patient setting on chair at bedside. Awake, alert and oriented x4. Able to make needs known. No pain reported at the moment. Tele monitor showing sinus tachycardia. On cont. 02 via Nc @ 3lpm and tolerating well. Saturation noted at 91% .Not in respiratory distress, some SOB on exertion noted. Isolation precautions to R/O covid in place. IV site clean, dry, patent and intact. Call light in reach. Bed locked, low and at semi-hernandez's position. Safety ensured and observed. Will continue to monitor. Addendum: 03/22/20 at 1828 by ZACH BANUELOS RN *sitting on chair.
[2020-03-22] MEDS: BLOOD SUGAR DIAGNOSTIC 1 EACH STRIP IN SCH ×4 (07:30→21:47)
--- NOTE | 2020-03-22 07:30 | NUR ---
RN OPENING NOTE: Received patient setting on chair at bedside. Awake, alert and oriented x4. Able to make needs known. No pain reported at the moment. Tele monitor showing ?. On cont. 02 via Nc @ 3lpm and tolerating well. Saturation noted at ? .Not in respiratory distress, some SOB on exertion noted. Isolation precautions to R/O covid in place. IV site clean, dry, patent and intact. Call light in reach. Bed locked, low and at semi-hernandez's position. Safety ensured and observed. Will continue to monitor. Addendum: 03/22/20 at 1829 by ZACH BANUELOS RN please disregard this note. Charting is incomplete.
[2020-03-22 07:45] LABS: THYROID STIMULATING HORMONE 1.413 uIU/mL (0.358-3.74)
[2020-03-22 08:00] VITALS: BP 111/73
[2020-03-22] MEDS ORDERED: ALBUTEROL SULFATE INH 18 GM HFA.AER.AD IH PRN (08:00)
[2020-03-22 08:11] LABS: BASOPHILS # (AUTO) 0.1 /CMM (0.0-0.2); BASOPHILS % (AUTO) 1.3 % (0.0-2.0); HEMATOCRIT 51 % (39-51); HEMOGLOBIN 16.4 g/dL (13.5-17.5); LYMPHOCYTES # (AUTO) 1.5 /CMM (0.8-4.8); LYMPHOCYTES % (AUTO) 18.2 % (20.0-44.0); MEAN CORPUSCULAR HGB CONC 32 g/dl (31.0-36.0); MEAN CORPUSCULAR VOLUME 81 fL (80-96); MONOCYTES # (AUTO) 0.7 /CMM (0.1-1.30); MONOCYTES % (AUTO) 8.1 % (2.0-12.0); NEUTROPHILS # (AUTO) 6.1 /CMM (1.8-8.9); NEUTROPHILS % (AUTO) 71.4 % (43.0-81.0); PLATELET COUNT (AUTO) 172 /CMM (150-450); RED BLOOD CELL COUNT(AUTO) 6.37 MIL/uL (4.5-6.0); WHITE BLOOD COUNT (AUTO) 8.5 K/uL (4.3-11.0)
[2020-03-22 08:27] LABS: CALCIUM, SERUM 8.6 mg/dL (8.5-10.1); CREATININE 1.1 mg/dL (0.6-1.3); MAGNESIUM 2.2 mg/dL (1.8-2.4); PHOSPHORUS 4.7 mg/dL (2.5-4.9)
[2020-03-22] MEDS ORDERED: ISOS30TA6 MT (08:31)
[2020-03-22] MEDS ORDERED: BECL10.62 MT (08:31)
[2020-03-22] MEDS ORDERED: ATOR40TA PO (08:31)
[2020-03-22] MEDS ORDERED: ALBU90AE2 PO (08:31)
[2020-03-22] MEDS ORDERED: DIGO125T MT (08:31)
[2020-03-22] MEDS: ENOXAPARIN SODIUM 40 MG/0.4 ML DISP.SYRIN SQ SCH (09:50)
[2020-03-22] MEDS: DIGOXIN 0.125 MG TABLET PO SCH (10:02)
[2020-03-22] MEDS: ISOSORBIDE MONONITRATE (30MG) 30 MG TAB.SR.24H PO SCH (10:02)
[2020-03-22] MEDS: CARVEDILOL 12.5 MG TABLET PO SCH ×2 (10:02→17:20)
[2020-03-22] MEDS: ATORVASTATIN 40 MG TABLET PO SCH (10:02)
[2020-03-22] MEDS: ASPIRIN EC 81 MG TABLET.DR PO SCH (10:02)
[2020-03-22] MEDS: FUROSEMIDE 100 MG/10 ML VIAL IV SCH ×3 (10:03→17:20)
[2020-03-22 12:00] VITALS: BP 114/77
[2020-03-22] MEDS: INSULIN REGULAR, HUMAN 100 UNIT/ML 3 ML VIAL SQ PRN ×2 (12:53→21:52)
[2020-03-22 16:00] VITALS: BP 110/76
--- NOTE | 2020-03-22 18:26 | NUR ---
RN CLOSING NOTE: No acute changes noted on shift. Anjel Chau DNP made rounds earlier and saw patient. Patient in bed. Awake, alert and oriented x4. Able to make needs known. No pain reported at the moment. Tele monitor showing sinus rhythm. On cont. 02 via Nc @ 3lpm and tolerating well. Saturation noted at 96% .Not in respiratory distress, some SOB on exertion noted. Isolation precautions to R/O covid in place. IV site clean, dry, patent and intact. Call light in reach. Bed locked, low and at semi-hernandez's position. Safety ensured and observed. Due medications given. Treatment given as ordered. Will endorse to oncoming shift for GASTON.
--- NOTE | 2020-03-22 19:15 | NUR ---
RN OPENING NOTE RECEIVED PT SITTING UP IN CHAIR, PT A/O X 4, ON O2 VIA NC AT 3L/MIN CURRENTLY SATURATING AT 98%. PT IN NO RESPIRATORY DISTRESS, DENIES ANY PAIN AT THIS TIME. PT CURRENTLY SINUS RHYTHM ON MONITOR. IV TO LEFT HAND PATENT INTACT AND FLUSHING WELL. CALL LIGHT WITHIN REACH, SAFETY MEASURES IN PLACE WILL CONTINUE TO MONITOR PT.
[2020-03-22 20:00] VITALS: BP 97/65
[2020-03-23] VITALS (8 sets, daily range): BP systolic 97–122; BP diastolic 64–89
--- NOTE | 2020-03-23 04:52 | NUR ---
RN NOTE SPOKE TO Nolan JACOBS NP, MADE AWARE OF NEGATIVE COVID 19 RESULTS. PT OKAY TO BE TRANSFERRED. CHARGE NURSE AWARE.
--- NOTE | 2020-03-23 06:35 | NUR ---
RN CLOSING NOTE PT AWAKE IN BED RESTING. NO SIGNS OF RESPIRATORY DISTRESS THROUGH OUT SHIFT. PT CONTINUES TO BE ON O2 VIA NC AT 3L/MIN, SATURATING AT 98%. PT CURRENTLY SINUS RHYTHM ON MONITOR. IV TO LEFT HAND PATENT INTACT AND FLUSHING WELL. COVID 19 RESULTS ARE NEGATIVE, CALL LIGHT WITHIN REACH, SAFETY MEASURES IN PLACE. ENDORSED TO AM RN FOR GASTON
--- NOTE | 2020-03-23 07:00 | NUR ---
RN NOTE RECEIVED PT SITTING UP ON A CHAIR, PT A/O X 4, ON O2 VIA NC AT 3L/MIN , O2 AT WNL, NO SOB NOTED, RESPIRATION EVEN AND UNLABORED, ON TELE SR HR IN 90'S , L HAND IV SITE CLEAN, DRY AND INTACT, CALL LIGHT WITHIN REACH, SAFETY MEASURES IN PLACE, WILL CONTINUE TO MONITOR .
[2020-03-23 08:03] LABS: BASOPHILS % (AUTO) 0.7 % (0.0-2.0); EOSINOPHILS % (AUTO) 2.3 % (0.0-6.0); HEMATOCRIT 49 % (39-51); HEMOGLOBIN 15.7 g/dL (13.5-17.5); LYMPHOCYTES # (AUTO) 1.6 /CMM (0.8-4.8); LYMPHOCYTES % (AUTO) 22.4 % (20.0-44.0); MEAN CORPUSCULAR HGB CONC 32 g/dl (31.0-36.0); MEAN CORPUSCULAR VOLUME 81 fL (80-96); MONOCYTES # (AUTO) 0.6 /CMM (0.1-1.30); MONOCYTES % (AUTO) 8.5 % (2.0-12.0); NEUTROPHILS # (AUTO) 4.8 /CMM (1.8-8.9); NEUTROPHILS % (AUTO) 66.1 % (43.0-81.0); PLATELET COUNT (AUTO) 169 /CMM (150-450); RED BLOOD CELL COUNT(AUTO) 6.08 MIL/uL (4.5-6.0); WHITE BLOOD COUNT (AUTO) 7.2 K/uL (4.3-11.0)
[2020-03-23] MEDS: INSULIN REGULAR, HUMAN 100 UNIT/ML 3 ML VIAL SQ PRN ×3 (08:21→21:20)
[2020-03-23] MEDS: BLOOD SUGAR DIAGNOSTIC 1 EACH STRIP IN SCH ×4 (08:22→21:18)
[2020-03-23] MEDS: ENOXAPARIN SODIUM 40 MG/0.4 ML DISP.SYRIN SQ SCH (08:23)
[2020-03-23] MEDS: ASPIRIN EC 81 MG TABLET.DR PO SCH (08:23)
[2020-03-23] MEDS: DIGOXIN 0.125 MG TABLET PO SCH (08:24)
[2020-03-23] MEDS: ISOSORBIDE MONONITRATE (30MG) 30 MG TAB.SR.24H PO SCH (08:24)
[2020-03-23] MEDS: ATORVASTATIN 40 MG TABLET PO SCH (08:24)
[2020-03-23 08:25] LABS: ALBUMIN 2.6 g/dL (3.4-5.0); CALCIUM, SERUM 7.9 mg/dL (8.5-10.1); CREATININE 1.1 mg/dL (0.6-1.3); PHOSPHORUS 4.3 mg/dL (2.5-4.9); TOTAL PROTEIN, SERUM 5.8 g/dL (6.4-8.2)
[2020-03-23] MEDS: CARVEDILOL 12.5 MG TABLET PO SCH ×2 (08:25→16:46)
[2020-03-23] MEDS: POTASSIUM CHLORIDE 20 MEQ TAB.PRT.SR PO SCH ×3 (09:03→11:05)
[2020-03-23] MEDS ORDERED: BUMETANIDE INJ 16 MG in IV NS 0.9% 16 ML IV ONE (09:15)
[2020-03-23] MEDS ORDERED: IPRATROPIUM NEB FS 0.5 MG/2.5 ML AMPUL.NEB NEB PRN (10:30)
--- NOTE | 2020-03-23 11:00 | NUR ---
RN NOTES PT STABLE, REPORT GIVEN TO SULAIMAN HONG FOR CONTINUITY OF CARE.
--- NOTE | 2020-03-23 11:05 | NUR ---
RN NOTES RECEIVED PT STABLE FROM IGNACIA HONG FOR CONTINUITY OF CARE. INSTRUCTED TO TRANSFER AND GIVE REPORT TO 206.
--- NOTE | 2020-03-23 11:40 | NUR ---
TRANSFER PT AND GAVE REPORT TO 206 MS SAFELY AND PER PROTOCOL.
--- NOTE | 2020-03-23 11:40 | NUR ---
MS BODY SHOP FLOORPERSON NOTE PATIENT ARRIVED BY BED FROM [place]. RECEIVED REPORT FROM SULAIMAN HONG. PATIENT IN BED RESTING COMFORTABLY. PATIENT IN NO ACUTE DISTRESS. NO SOB NOTED. PATIENT BREATHING IS EVEN AND UNLABORED. PATIENT ON OXYGEN 3L NC SATURATING >95% SPO2. PATIENT VITAL SIGNS ARE STABLE. PATIENT SAFETY PRECAUTIONS IN PLACE. PATIENT BED IS LOCKED AND IN LOWEST POSITION. CALL LIGHT WITHIN REACH. WILL CONTINUE TO MONITOR.
--- NOTE | 2020-03-23 12:02 | NUR ---
MS RN NOTE PATIENT BLOOD SUGAR 116. NO INSULIN COVERAGE NEEDED PER PROTOCOL.
--- NOTE | 2020-03-23 13:43 | NUR ---
INITIAL ECHO FINDING SHOWED EF 15-20%. ADVISED RESULT TO DR GRACIA AND RN.
--- NOTE | 2020-03-23 13:44 | NUR ---
MS RN NOTE ECHOCARDIOGRAM DONE AND COMPLETED BY EDGAR. EJECTION FRACTION 15%. PER EDGAR INFORMED AND MADE AWARE TO DR. GRACIA. NO NEW ORDERS AT THIS TIME.
--- NOTE | 2020-03-23 18:34 | NUR ---
MS RN CLOSING NOTE PATIENT IN BED RESTING COMFORTABLY. PATIENT IN NO ACUTE DISTRESS. NO SOB NOTED. PATIENT BREATHING IS EVEN AND UNLABORED. PATIENT ON OXYGEN 3L NC SATURATING >95% SPO2. PATIENT KEPT CLEAN, DRY AND COMFORTABLE THROUGHOUT MY SHIFT. NEEDS AND CONCERNS ADDRESSED. PATIENT SAFETY PRECAUTIONS IN PLACE. PATIENT BED IS LOCKED AND IN LOWEST POSITION. CALL LIGHT WITHIN REACH. WILL ENDORSE CARE TO PM SHIFT FOR GASTON.
--- NOTE | 2020-03-23 19:29 | NUR ---
MS/RN OPENING NOTES: RECEIVED PATIENT IN BED RESTING COMFORTABLY. A/OX4. VERBALLY RESPONSIVE AND ABLE TO MAKE NEEDS KNOWN. PATIENT IN NO ACUTE DISTRESS. NO SOB NOTED. PATIENT BREATHING IS EVEN AND UNLABORED. PATIENT ON OXYGEN 3L NC SATURATING >95% SPO2. IV SITE ON THE LEFT HAND #20G SL. INTACT, PATENT AND FLUSHING WELL. PATIENT SAFETY PRECAUTIONS IN PLACE. PATIENT BED IS LOCKED AND IN LOWEST POSITION. CALL LIGHT WITHIN REACH. WILL CONTINUE TO MONITOR ACCORDINGLY.
--- NOTE | 2020-03-23 22:30 | NUR ---
MS/RN NOTES: ACCUCHECK FOR HS IS 162. 3 UNITS REG. INSULIN GIVEN PER SLIDING SCALE. GAVE PT CRANBERRY JUICE REQUESTED. WILL CONTINUE TO MONITOR.
--- NOTE | 2020-03-24 06:30 | NUR ---
MS/RN NOTES: ACCUCHECK FOR AC IS 116. NO INSULIN COVERAGE NEEDED PER SLIDING SCALE.
[2020-03-24] MEDS: BLOOD SUGAR DIAGNOSTIC 1 EACH STRIP IN SCH ×4 (06:40→21:42)
[2020-03-24] MEDS: INSULIN REGULAR, HUMAN 100 UNIT/ML 3 ML VIAL SQ PRN ×3 (06:41→21:43)
[2020-03-24 06:54] LABS: BASOPHILS # (AUTO) 0.1 /CMM (0.0-0.2); BASOPHILS % (AUTO) 0.8 % (0.0-2.0); EOSINOPHILS % (AUTO) 2.6 % (0.0-6.0); HEMATOCRIT 51 % (39-51); HEMOGLOBIN 16.2 g/dL (13.5-17.5); LYMPHOCYTES # (AUTO) 1.5 /CMM (0.8-4.8); LYMPHOCYTES % (AUTO) 23.2 % (20.0-44.0); MEAN CORPUSCULAR HGB CONC 32 g/dl (31.0-36.0); MEAN CORPUSCULAR VOLUME 80 fL (80-96); MONOCYTES # (AUTO) 0.7 /CMM (0.1-1.30); MONOCYTES % (AUTO) 9.8 % (2.0-12.0); NEUTROPHILS # (AUTO) 4.2 /CMM (1.8-8.9); NEUTROPHILS % (AUTO) 63.6 % (43.0-81.0); PLATELET COUNT (AUTO) 195 /CMM (150-450); RED BLOOD CELL COUNT(AUTO) 6.35 MIL/uL (4.5-6.0); WHITE BLOOD COUNT (AUTO) 6.6 K/uL (4.3-11.0)
--- NOTE | 2020-03-24 06:54 | NUR ---
MS/RN CLOSING NOTES: PATIENT REMAINS IN BED RESTING COMFORTABLY. REMAINS A/OX4. VERBALLY RESPONSIVE AND ABLE TO MAKE NEEDS KNOWN. NO C/O PAIN AT THIS TIME. PATIENT IN NO ACUTE DISTRESS. NO SOB NOTED. PATIENT BREATHING IS EVEN AND UNLABORED. IV SITE ON THE LEFT HAND #20G SL REMAINS INTACT, PATENT AND FLUSHING WELL. ALL NEEDS MET AND RENDERED. PATIENT BED ALARM IS ON. KEPT CLEAN AND DRY, COMFORTABLE AND WARM THROUGH OUT THE SHIFT. SAFETY PRECAUTIONS KEPT IN PLACE. PATIENT BED IS LOCKED AND IN LOWEST POSITION. CALL LIGHT WITHIN REACH. WILL ENDORSE TO AM SHIFT FOR GASTON.
[2020-03-24 07:02] LABS: ALBUMIN 2.8 g/dL (3.4-5.0); BILIRUBIN,TOTAL 1.4 mg/dL (0.2-1.0); CALCIUM, SERUM 8.6 mg/dL (8.5-10.1); CREATININE 1.1 mg/dL (0.6-1.3); MAGNESIUM 1.8 mg/dL (1.8-2.4); PHOSPHORUS 4.1 mg/dL (2.5-4.9); POTASSIUM 2.9 mmol/L (3.5-5.1); TOTAL PROTEIN, SERUM 5.9 g/dL (6.4-8.2)
--- NOTE | 2020-03-24 07:27 | NUR ---
MS RN NOTES RECEIVED PT IN BED, ASLEEP, EASILY AROUSED, A/O X2-3. PT ON SUPPLEMENTARY OXYGEN AT 3L VIA NC, WITH NO ACUTE RESPIRATORY DISTRESS NOTED. PT DENIES ANY PAIN OR DISCOMFORT AT THIS TIME. PT DENIES ANY CONCERNS OR QUESTIONS WELL. LEFT HAND G20, FLUSHED WITH NS, INTACT AND OPERATIONAL. PT KEPT COMFORTABLE IN BED. CALL LIGHT KEPT WITHIN REACH. PT'S BED IN LOWEST, LOCKED POSITION WITH SR X3. WILL CONTINUE PLAN OF CARE.
[2020-03-24 08:00] VITALS: BP 114/75
[2020-03-24] MEDS: ASPIRIN EC 81 MG TABLET.DR PO SCH (08:03)
[2020-03-24] MEDS: DIGOXIN 0.125 MG TABLET PO SCH (08:03)
[2020-03-24] MEDS: CARVEDILOL 12.5 MG TABLET PO SCH ×2 (08:03→16:41)
[2020-03-24] MEDS: ISOSORBIDE MONONITRATE (30MG) 30 MG TAB.SR.24H PO SCH (08:03)
[2020-03-24] MEDS: ATORVASTATIN 40 MG TABLET PO SCH (08:03)
[2020-03-24] MEDS: ENOXAPARIN SODIUM 40 MG/0.4 ML DISP.SYRIN SQ SCH (08:12)
[2020-03-24] MEDS: POTASSIUM CHLORIDE 20 MEQ TAB.PRT.SR PO SCH ×5 (09:07→13:57)
[2020-03-24 11:05] LABS: ABG BASE EXCESS 4.8 mmol/L; ABG OXYGEN SATURATION 93.2 % (92.0-98.5); ABG PCO2 47.9 mmHg (35.0-45.0); ABG PO2 67.3 mmHg (75.0-100.0); AaDO2 75.8 mmHg; COHb 1.2 % (0.5-1.5); MetHb 0.4 % (0.0-1.5); O2Hb 91.7 % (94.0-97.0); SITE, ABG Right Radial; VENT MODE, BG NC 2 L
[2020-03-24 12:30] VITALS: BP 90/61
--- NOTE | 2020-03-24 12:35 | NUR ---
MS RN NOTES NOTIFIED HOSPITALIST/NN REGARDING IV BUMEX WILL AT 1230, PREPARED EARLY BY PHARMACIST. CURRENT BP AT 90/60. PER DNP/NN TO MONITOR BP AND HR, WHEN STABLE, MAY GIVE IV BUMEX. WILL CONTINUE TO MONITOR.
--- NOTE | 2020-03-24 12:40 | NUR ---
Arranged [facility] with [facility] [phone] and faxed orders and clinicals. Spoke with Brian- case is being reviewed for approval. Addendum: 03/24/20 at 1844 by YOHAN REBOLLEDO RN Amended: Links added.
[2020-03-24] MEDS ORDERED: BUMETANIDE INJ 16 MG in IV NS 0.9% 16 ML IV ONE (13:00)
[2020-03-24 13:10] VITALS: BP 115/74
--- NOTE | 2020-03-24 13:41 | NUR ---
MS RN NOTES PT'S BP GOT BETTER. IV BUMEX REQUESTED FOR PHARMACY TO MAKE IT AGAIN. PT AWARE AND FELT BETTER. VS STABLE AND RECORDED.
--- NOTE | 2020-03-24 13:56 | NUR ---
MS RN NOTES CALLED PHARMACY AND SPOKE TO ALEKSANDR, IV BUMEX IS BEING PREPARED AT THIS TIME. AWAITING FOR MEDICINE TO ARRIVE.
--- NOTE | 2020-03-24 14:13 | NUR ---
MS RN NOTES CALLED PHARMACY AGAIN AND SPOKE TO ALEKSANDR, IV BUMEX IS BEING REMIX AT THIS TIME. AWAITING FOR MEDICINE TO ARRIVE.
--- NOTE | 2020-03-24 15:00 | NUR ---
spoke with [facility] rep Evin- [phone] still awaiting for insurance approval. Faxed order and clinicals to [facility] and left message to Rose ENRIQUE @ [facility] [phone] for auth. Addendum: 03/24/20 at 1847 by YOHAN REBOLLEDO RN Amended: Links added.
[2020-03-24] MEDS: GUAIFENESIN 300 MG/15 ML UDC PO PRN ×2 (15:13→21:39)
--- NOTE | 2020-03-24 18:32 | NUR ---
MS RN NOTES PT AWAKE, A/O X3-4. PT ON SUPPLEMENTARY OXYGEN AT 3L VIA NC, WITH NO ACUTE RESPIRATORY DISTRESS NOTED. PT DENIES ANY PAIN OR DISCOMFORT AT THIS TIME. ON GOING IB BUMEX 16MG TO RUN FOR 8HOURS TO LEFT HAND G20, INTACT AND FLUID INFUSING WELL. PT KEPT COMFORTABLE IN BED. ALL NEEDS AND CARE ATTENDED. CALL LIGHT KEPT WITHIN REACH. PT'S BED IN LOWEST, LOCKED POSITION WITH SR X3. WILL ENDORSE TO INCOMING NIGHT NURSE FOR GASTON.
--- NOTE | 2020-03-24 19:29 | NUR ---
MS/RN OPENING NOTES: RECEIVED PATIENT IN BED RESTING COMFORTABLY, ON THE PHONE AND WATCHING TV. A/OX3-4. VERBALLY RESPONSIVE AND ABLE TO MAKE NEEDS KNOWN. PATIENT IN NO ACUTE DISTRESS. NO SOB NOTED. PATIENT BREATHING IS EVEN AND UNLABORED. PATIENT ON SUPPLEMENTARY OXYGEN 3L VIA NC SATURATING 99% SPO2. IV SITE ON THE LEFT HAND #20G SL. INTACT, PATENT AND FLUSHING WELL. ON GOING IV BUMEX 16MG TO RUN FOR 8 HRS. PATIENT SAFETY PRECAUTIONS IN PLACE. PATIENT BED IS LOCKED AND IN LOWEST POSITION WITH SR UP X3. CALL LIGHT WITHIN REACH. WILL CONTINUE TO MONITOR ACCORDINGLY.
[2020-03-24 20:00] VITALS: BP 130/81
[2020-03-24] MEDS ORDERED: GUAIFENESIN 300 MG/15 ML UDC ONE (21:36)
[2020-03-25] MEDS: INSULIN REGULAR, HUMAN 100 UNIT/ML 3 ML VIAL SQ PRN (06:36)
[2020-03-25] MEDS: BLOOD SUGAR DIAGNOSTIC 1 EACH STRIP IN SCH ×2 (06:36→11:38)
--- NOTE | 2020-03-25 07:16 | NUR ---
MS RN NOTES RECEIVED PT AWAKE, A/O X3-4. PT ON SUPPLEMENTARY OXYGEN AT 3L VIA NC, WITH NO ACUTE RESPIRATORY DISTRESS NOTED. PT DENIES ANY PAIN OR DISCOMFORT AT THIS TIME. PT DENIES ANY CONCERNS OR QUESTIONS WELL. LEFT HAND G20, FLUSHED WITH NS, INTACT AND OPERATIONAL. PT KEPT COMFORTABLE IN BED. CALL LIGHT KEPT WITHIN REACH. PT'S BED IN LOWEST, LOCKED POSITION WITH SR X3. WILL CONTINUE PLAN OF CARE.
--- NOTE | 2020-03-25 07:17 | NUR ---
MS/RN CLOSING NOTES: PATIENT REMAINS IN BED WATCHING TV. REMAINS A/OX4. VERBALLY RESPONSIVE AND ABLE TO MAKE NEEDS KNOWN. NO C/O PAIN AT THIS TIME. PATIENT IN NO ACUTE DISTRESS. NO SOB NOTED. PATIENT BREATHING IS EVEN AND UNLABORED. IV SITE ON THE LEFT HAND #20G SL REMAINS INTACT, PATENT AND FLUSHING WELL. ALL NEEDS MET AND RENDERED. PATIENT BED ALARM IS ON. KEPT CLEAN AND DRY, COMFORTABLE AND WARM THROUGH OUT THE SHIFT. SAFETY PRECAUTIONS KEPT IN PLACE. PATIENT BED IS LOCKED AND IN LOWEST POSITION. CALL LIGHT WITHIN REACH. WILL ENDORSE TO AM SHIFT FOR [place].
[2020-03-25 07:23] LABS: BASOPHILS # (AUTO) 0.1 /CMM (0.0-0.2); BASOPHILS % (AUTO) 0.9 % (0.0-2.0); EOSINOPHILS % (AUTO) 2.2 % (0.0-6.0); HEMATOCRIT 53 % (39-51); LYMPHOCYTES # (AUTO) 1.7 /CMM (0.8-4.8); LYMPHOCYTES % (AUTO) 21.9 % (20.0-44.0); MEAN CORPUSCULAR HGB CONC 32 g/dl (31.0-36.0); MEAN CORPUSCULAR VOLUME 80 fL (80-96); MONOCYTES # (AUTO) 0.9 /CMM (0.1-1.30); MONOCYTES % (AUTO) 11.2 % (2.0-12.0); NEUTROPHILS # (AUTO) 5.1 /CMM (1.8-8.9); NEUTROPHILS % (AUTO) 63.8 % (43.0-81.0); PLATELET COUNT (AUTO) 232 /CMM (150-450); RED BLOOD CELL COUNT(AUTO) 6.62 MIL/uL (4.5-6.0)
[2020-03-25 07:26] LABS: ALBUMIN 3.2 g/dL (3.4-5.0); BILIRUBIN,TOTAL 1.4 mg/dL (0.2-1.0); CALCIUM, SERUM 8.6 mg/dL (8.5-10.1); CREATININE 1.1 mg/dL (0.6-1.3); MAGNESIUM 1.9 mg/dL (1.8-2.4); PHOSPHORUS 3.6 mg/dL (2.5-4.9); POTASSIUM 3.3 mmol/L (3.5-5.1); TOTAL PROTEIN, SERUM 6.8 g/dL (6.4-8.2)
[2020-03-25 08:00] VITALS: BP 99/66
[2020-03-25] MEDS: ENOXAPARIN SODIUM 40 MG/0.4 ML DISP.SYRIN SQ SCH (08:35)
[2020-03-25] MEDS: DIGOXIN 0.125 MG TABLET PO SCH (08:36)
[2020-03-25] MEDS: ATORVASTATIN 40 MG TABLET PO SCH (08:36)
[2020-03-25] MEDS: ASPIRIN EC 81 MG TABLET.DR PO SCH (08:36)
[2020-03-25 08:38] VITALS: BP 99/66
[2020-03-25] MEDS: CARVEDILOL 12.5 MG TABLET PO SCH (08:38)
[2020-03-25] MEDS: ISOSORBIDE MONONITRATE (30MG) 30 MG TAB.SR.24H PO SCH (08:38)
[2020-03-25] MEDS ORDERED: FUROSEMIDE 40 MG TABLET PO SCH (09:00)
[2020-03-25] MEDS ORDERED: POTASSIUM CHLORIDE 20 MEQ TAB.PRT.SR PO SCH (09:00)
--- NOTE | 2020-03-25 10:44 | NUR ---
MS RN NOTES PER BRANDY/MAYA PT NEEDS DRUG SCREEN FOR LIFE VEST. ALSO PT MENTION HE HAS ONE AT HOME. AWAITING FOR LIFE VEST ARRANGEMENT. PT AWARE,.
--- NOTE | 2020-03-25 10:53 | NUR ---
MS RN NOTES PER PT, HE HAS LIFE VEST AT HOME AND PREFERS NOT TO WEAR IT. BRANDY/MAYA MADE AWARE WELL AND WILL TALK TO THE PT.
--- NOTE | 2020-03-25 12:50 | NUR ---
MS RN NOTES PER PT PREFERS TO GO AMA INSTEAD OF WAITING FOR HOSPITALIST/AP TO COME. BRANDY/MAYA AWARE WELL. PT'S CONTACT NUMBER , TO CONTACT REGARDING LIFE VENT BEING DELIVERED. PT SIGNED AMA FORM. PT AWARE ABOUT RISKS AND STILL PREFERS TO GO AMA.
--- NOTE | 2020-03-25 13:11 | NUR ---
MS RN AMA/DISCHARGE NOTES PT AWAKE, A/O X3-4. PREFERS TO GO AMA AT THIS TIME. PT ON SUPPLEMENTARY OXYGEN AT 3L VIA NC, WITH NO ACUTE RESPIRATORY DISTRESS NOTED. PT DENIES ANY PAIN OR DISCOMFORT AT THE TIME OF DISCHARGE. PIV TO LEFT HAND G20, REMOVED AND APPLIED DRY DRESSING. ALL NEEDS AND CARE ATTENDED. HOSPITALIST/AP AWARE AND BRANDY/MAYA. PT ESCORTED TO THE LOBBY VIA WHEELCHAIR ON RA WITH NO ACUTE RESPIRATORY DISTRESS. FAMILY AT THE LOBBY WAITING AND HAS PORTABLE OXYGEN WITH THEM. NO PAPERS PROVIDED AND PER PT REFUSED TO HAVE IT. SKIN ASSESSMENT REFUSED WELL. PT LEFT THE HOSPITAL AT 1300.
== END 2020-03-25 13:00 | disposition left against medical advice (07) | DRG 190 ==
LOC: ER 21:59 → TELE 03-22 00:58 → TELE1 03-22 01:27 → MEDSG1 03-23 08:54 → MEDSG2 03-23 10:49
PROVIDERS: ADMIT Nurse Practitioner Acute Care; ATTEND Hospitalist
DX: I21.4 Non-ST elevation (NSTEMI) myocardial infarction (principal); I11.0 Hypertensive heart disease with heart failure; I50.23 Acute on chronic systolic (congestive) heart failure; E44.0 Moderate protein-calorie malnutrition; Z95.810 Presence of automatic (implantable) cardiac defibrillator; E87.6 Hypokalemia; J44.9 Chronic obstructive pulmonary disease, unspecified; E78.5 Hyperlipidemia, unspecified; I25.10 Atherosclerotic heart disease of native coronary artery without angina pectoris; E11.9 Type 2 diabetes mellitus without complications; G47.33 Obstructive sleep apnea (adult) (pediatric); F17.210 Nicotine dependence, cigarettes, uncomplicated; F19.20 Other psychoactive substance dependence, uncomplicated; E66.01 Morbid (severe) obesity due to excess calories; Z68.41 Body mass index [BMI] 40.0-44.9, adult; E88.09 Other disorders of plasma-protein metabolism, not elsewhere classified; Z91.14 Patient's other noncompliance with medication regimen; I42.8 Other cardiomyopathies
CPT/HCPCS: 36415; 36600; 71045-TC; 80048-TC; 80053-TC; 80061-TC; 80076-TC; 80305; 82803-TC; 82962-TC; 83735-TC; 83880; 84100-TC; 84443-TC; 84484-TC; 85025-TC; 85730-TC; 87081-TC; 93307-TC; A4216; G0378; J1650; J1815; J1940; J3490; J7030; U0003-CS

== ENCOUNTER 2020-04-06 01:45 | Inpatient (IN) | payer OTHER ==
[~2020-04-06] VITALS: Ht 177.8 cm; Wt 131.1 kg
[~2020-04-06 01:45] MED LIST changes: +ALBU90AE2 PO; +BECL10.62 MT; +DIGO125T PO; +ISOS30TA6 MT; -LISI-607 PO; -SPIR25TA6 PO
--- NOTE | 2020-04-06 01:50 | NUR ---
PT C/O MIDSTERNAL SQUEEZING CHEST PAIN RADIATING TO L ARM WHILE DRIVING X 15 MIN PRIOR TO ARRIVAL OF EMS. +SOB. PT GIVEN ASPIRIN 324MG PO AND 1 NITRO SPRAY BY EMS. PT AAOX4, VSS, TACHYPNEIC. CRACKLES NOTED UPON AUSCULTATION. PT CONNECTED TO THE QUALITY CONTROL CHECKER AND POX
--- NOTE | 2020-04-06 01:50 | NUR ---
ER MD AT BEDSIDE TO EVAL PT WITH ORDERS RECEIVED.
--- NOTE | 2020-04-06 02:21 | NUR ---
BLOOD COLLECTED AND SENT TO LAB
[2020-04-06] MEDS ORDERED: FUROSEMIDE 40 MG/4 ML VIAL ONE (02:22)
[2020-04-06 02:23] LABS: BASOPHILS # (AUTO) 0.1 /CMM (0.0-0.2); BASOPHILS % (AUTO) 0.6 % (0.0-2.0); EOSINOPHILS % (AUTO) 0.6 % (0.0-6.0); HEMATOCRIT 50 % (39-51); LYMPHOCYTES # (AUTO) 1.3 /CMM (0.8-4.8); MEAN CORPUSCULAR HGB CONC 32 g/dl (31.0-36.0); MEAN CORPUSCULAR VOLUME 80 fL (80-96); MONOCYTES # (AUTO) 1.1 /CMM (0.1-1.30); MONOCYTES % (AUTO) 10.1 % (2.0-12.0); NEUTROPHILS # (AUTO) 8.4 /CMM (1.8-8.9); NEUTROPHILS % (AUTO) 76.7 % (43.0-81.0); PLATELET COUNT (AUTO) 165 /CMM (150-450); RED BLOOD CELL COUNT(AUTO) 6.31 MIL/uL (4.5-6.0); WHITE BLOOD COUNT (AUTO) 10.9 K/uL (4.3-11.0)
[2020-04-06] MEDS ORDERED: FUROSEMIDE 40 MG/4 ML VIAL IV ONE (02:30)
[2020-04-06 02:41] LABS: CALCIUM, SERUM 8.2 mg/dL (8.5-10.1); CREATININE 1.2 mg/dL (0.6-1.3); POTASSIUM 3.5 mmol/L (3.5-5.1)
[2020-04-06 02:56] LABS: ALBUMIN 2.8 g/dL (3.4-5.0); BILIRUBIN,DIRECT 0.3 mg/dL (0.0-0.2); BILIRUBIN,TOTAL 0.9 mg/dL (0.2-1.0)
[2020-04-06] MEDS ORDERED: DEXTROSE 50%-WATER 50 ML DISP.SYRIN IV PRN (04:00)
[2020-04-06] MEDS ORDERED: ACETAMINOPHEN 325 MG TABLET PO PRN (04:00)
[2020-04-06] MEDS ORDERED: MAG HYDROX/AL HYDROX/SIMETH 30 ML UDC PO PRN (04:00)
[2020-04-06] MEDS ORDERED: Z GUARD REMEDY 2 OZ OINT TP PRN (04:00)
[2020-04-06] MEDS ORDERED: ONDANSETRON HCL/PF 4 MG/2 ML VIAL IVP PRN (04:00)
[2020-04-06] MEDS ORDERED: ZOLPIDEM TARTRATE 5 MG TABLET PO PRN (04:00)
--- NOTE | 2020-04-06 04:05 | NUR ---
REPORT GIVEN TO DEBRA HONG FOR GASTON.
[2020-04-06 04:45] VITALS: BP 120/80
--- NOTE | 2020-04-06 04:45 | NUR ---
CRUCIBLE PACKERVALUE ANALYST NOTES ADMITTED FORN ER PER KRISTEN THIS 59 YO MALE,ALERT,ORIENTED X4,FROM HOME,WITH CHIEF COMPLAINTS OF CHEST PAIN WHILE DRIVING,UPON REACHING HOME HE CALL AMBULANCE,HE WAS GIVEN ASPIRIN 324 MG AND NITRO 1 SPRAY,WITH RELIEF.MILD SHORTNESS OF BREATH NOTED,O2 AT 3L/NC IN USED,O2 SAT 97%.NO SKIN ISSUES,AMBULATE WITH ASSIST.SALINE LOCK RIGHT HAND INTACT AND PATENT.ST 105 ON TELE MONITOR .NOTED PITTING EDEMA +3 ON BOTH LOWER LEGS.CLAIMED HE QUIT SMOKING 2 WEEKS AGO.DENIES CHEST PAIN AT THE MOMENT.SITTING ON BED ON HIGH FOWLERS POSITION.CALL LIGHT IN REACH,NEEDS ANTICIPATED.
[2020-04-06 05:33] VITALS: BP 120/80
--- NOTE | 2020-04-06 06:13 | NUR ---
FLORAL ARRANGER NOTES ON BED HAVING ICE CHIPS,DENIES CHEST PAIN,INSTRUCTED FLUID RESTRICTION TO PREVENT FURTHER SHORTNESS OF BREATH.BREAKFAST WILL BE HELD FOR A LITTLE WHILE 'TILL SEEN BY DIRECTOR OF CARDIAC CATH LAB.O2 IN USED TO KEEP O2 SAT ABOVE 90%.VOIDING FREELY PER URINAL.CALL LIGHT IN REACH,NEEDS ATTENDED.WILL ENDORSE TO DAY NURSE FOR GASTON.
--- NOTE | 2020-04-06 06:32 | NUR ---
MACHINE CARTON MARKER NOTES VTE SCORE 1,ON LOVENOX,DVT PUMP NOT INDICATED DUE TO EDEMA +3 ON BOTH LOWER EXTREMITIES.
[2020-04-06] MEDS: FUROSEMIDE 40 MG/4 ML VIAL IV SCH ×3 (06:53→15:27)
--- NOTE | 2020-04-06 07:04 | NUR ---
SCRAPER MEAT NOTES DUE LASIX 40MG IV GIVEN ORDERED.
--- NOTE | 2020-04-06 07:05 | NUR ---
WEB COMMUNICATIONS SPECIALIST NOTES C/O PAIN ON LEFT SIDE RIBS AREA,REQUESTING FOR X-RAY.WILL ENDORSE TO DAY NURSE TO RELAY WITH DAYTIME HOSPITALIST.
[2020-04-06] MEDS ORDERED: LOSA25TA27 PO (07:40)
[2020-04-06] MEDS ORDERED: APIX5TAB PO (07:40)
[2020-04-06 08:00] VITALS: BP 118/69
--- NOTE | 2020-04-06 08:00 | NUR ---
JUNIOR NETWORK ADMINISTRATOR OPENING NOTES RECEIVED PT IN BED. AWAKE, ALERT AND ORIENTED X3. NO CARDIAC IR RESPIRATORY DISTRESS NOTED. ON O2 AT 3L/MIN VIA NC. SATURATING AT 97%. ON CARDIAC TELE MONITOR SHOWING NORMAL SINUS RHYTHM WITH HR OF 95. IV ACCESS NOTED ON THE R HAND G20. INTACT AND PATENT AND FLUSHING WELL. NO S/S OF INFECTION OR INFILTRATION NOTED. BS CHECK DONE, NOTED AT 140. PT REFUSED INSULIN AT THIS TIME. EXPLAINED RISKS AND BENEFITS X2. STILL REFUSED. SAFETY PRECAUTIONS IN PLACE. BED LOCKED AND IN LOW POSITION. SIDE RAILS UP X2. BED ALARM ON. CLL LIGHT WITHIN REACH.
[2020-04-06] MEDS: BLOOD SUGAR DIAGNOSTIC 1 EACH STRIP IN SCH ×4 (08:10→21:18)
[2020-04-06] MEDS: HYDROCODONE/APAP 5/325MG 1 EACH TABLET PO PRN ×4 (08:40→23:06)
[2020-04-06] MEDS: INSULIN REGULAR, HUMAN 100 UNIT/ML 3 ML VIAL SQ PRN ×3 (08:56→21:16)
[2020-04-06] MEDS ORDERED: ENOXAPARIN SODIUM 40 MG/0.4 ML DISP.SYRIN SQ SCH (09:00)
[2020-04-06] MEDS: ASPIRIN EC 81 MG TABLET.DR PO SCH (11:08)
[2020-04-06] MEDS: LOSARTAN POTASSIUM 25 MG TABLET PO SCH (11:08)
[2020-04-06] MEDS: ISOSORBIDE MONONITRATE (30MG) 30 MG TAB.SR.24H PO SCH (11:09)
[2020-04-06] MEDS: CARVEDILOL 12.5 MG TABLET PO SCH ×2 (11:09→16:23)
--- NOTE | 2020-04-06 12:00 | NUR ---
URINE COLLECTION URINE COLLECTED FOR DRUG SCREEN.
[2020-04-06] MEDS: DIGOXIN 0.125 MG TABLET PO SCH (12:37)
--- NOTE | 2020-04-06 13:30 | NUR ---
L SIDE RIB AREA PAIN NOTIFIED DR. CHILD REGARDING PTS PAIN ON L SIDE OF ABD. PROVIDED PT WITH PHARMACOLOGICAL INTERVENTIONS. WELL NORCO 5/325MG PRN. PER PT, NORCO DID NOT WORK, AND THAT HIS PAIN OS STILL 05/22. MD REFUSED TO INCREASE PAIN MED DOSAGE. PT WAS INFORMED. PT WAS REPOSITIONED IN BED AND PROVIDED A DIM ENVIRONMENT AND DISTRACTION.
[2020-04-06 16:00] VITALS: BP 109/55
[2020-04-06] MEDS: APIXABAN 5 MG TABLET PO SCH (16:24)
--- NOTE | 2020-04-06 17:30 | NUR ---
DVT PUMPS DVT PUMPS ORDERED FOR VTE SCORE OF 2. ENCOURAGED PT TO APPLY DVT PUMPS, HOWEVER HE STRONGLY REFUSED, HE DID NOT EVEN WANT TO TRY IT ON FOR A COUPLE OF MINUTES. HE STATES THAT HE DOESN'T NEED IT. EXPLAINED THAT HE IS AT HIGH RISK FOR DEVELOPING BLOOD CLOTS HOWEVER HE TELLS ME THAT HE NEVER LIKE WEARING THEM WHEN HE USED TO GET HOSPITALIZED. EXPLAINED RISKS, CONSEQUENCES AND NEGATIVE OUTCOMES OF HIS BEHAVIOR. PT UNDERSTOOD. I LEFT THE DVT PUMP MACHINE AND STOCKINGS IN HIS ROOM JUST IN CASE HE CHANGES HIS MIND. WILL CONT TO ENCOURAGE.
--- NOTE | 2020-04-06 18:12 | NUR ---
PROPAGATION WORKER CLOSING NOTES PT IN BED. AWAKE, ALERT AND ORIENTED X3. NO CARDIAC OR RESPIRATORY DISTRESS NOTED. ON O2 AT 3L/MIN VIA NC. SATURATING AT 97%. SOB NOTED UPON EXERTION. INSTRUCTED PT THROUGHOUT THE SHIFT TO TRY TO CONSERVE ENERGY, TAKE SLOW DEEP BREATHS AND TO BE MINDFUL WHEN PERFORMING ADLS. ON CARDIAC TELE MONITOR SHOWING NORMAL SINUS RHYTHM WITH HR OF 95. IV ACCESS NOTED ON THE R HAND G20. INTACT AND PATENT AND FLUSHING WELL. NO S/S OF INFECTION OR INFILTRATION NOTED. PT BS WAS MANAGED THROUGHOUT THE SHIFT. SAFETY PRECAUTIONS IN PLACE. BED LOCKED AND IN LOW POSITION. SIDE RAILS UP X2. BED ALARM ON. CALL LIGHT WITHIN REACH. WILL ENDORSE TO NEXT SHIFT.
--- NOTE | 2020-04-06 19:30 | NUR ---
BILINGUAL SALES ASSISTANT OPENING NOTES RECEIVED PATIENT RESTING IN BED COMFORTABLY; A/OX4; BREATHING EVEN AND UNLABORED; PATIENT ON 3LPM VIA NC; NO SOB NOTED; NO DISTRESS NOTED; PATIENT DENIES PAIN; PATIENT DENIES CHEST PAIN; TELE MONITOR ATTACHED READS NSR 95BPM; R HAND # 20 HL INTACT; PER AM SHIFT, PATIENT WANTED TO LEAVE AMA BUT DECIDED TO STAY OVERNIGHT; WILL CONT TO MONITOR; SAFETY PRECAUTIONS IMPLEMENTED; BED LOCKED IN LOW POSITION; SIDE RAILSX2; CALL LIGHT WITHIN REACH; WILL CONT TO MONITOR
[2020-04-06 20:00] VITALS: BP 102/66
[2020-04-06] MEDS: ATORVASTATIN 40 MG TABLET PO SCH (21:20)
--- NOTE | 2020-04-06 23:06 | NUR ---
TELE MONITOR PATIENT COMPLAINT OF PAIN ON L SIDE OF RIBS - ABDOMINAL AREA, NORCO ADMINISTERED PER MD ORDER; AFTER PATIENT DRANK MED, PATIENT COUGHED UP A QUARTER SIZED BLOOD CLOT; MD MADE AWARE; CHARGE NURSE AWARE; MD ORDERED CT PULMONARY ANGIOGRAM STAT; PATIENT AGREED TO HAVE PROCEDURE DONE AND DENIES ANY ALLERGIES TO SHELLFISH; AWAITING TOP PRECIPITATOR OPERATOR Addendum: 04/06/20 at 2416 by GASTON RODARTE RN IT NETWORK ARCHITECT NOTES*
[2020-04-06] MEDS ORDERED: IOHEXOL-350 100 ML VIAL IV ONE (23:46)
[2020-04-06] MEDS ORDERED: IV NS 0.9% 250 ML IV ONE (23:46)
--- NOTE | 2020-04-06 23:46 | NUR ---
ECONOMIC ADVISER NOTES SAILING INSTRUCTOR AT BEDSIDE; WHEELING PATIENT FOR PROCEDURE ACCOMPANIED BY TOBACCO SAMPLE PULLER; WILL AWAIT FOR PATIENT TO RETURN; TELE BOX REMOVED; CHARGE NURSE AWARE
[2020-04-07] VITALS: BP 98/69
--- NOTE | 2020-04-07 00:08 | NUR ---
GREEN BELT NOTES PATIENT RETURNED FROM CT, PATIENT UNABLE TO COMPLETE PROCEDURE D/T ANXIETY AND CLAUSTROPHOBIA; SHELLEY CANTU NP AWARE; ASSESSED PATIENT; STAT ABG ORDERED; WILL CONT TO MONITOR
--- NOTE | 2020-04-07 00:37 | NUR ---
TELEVISION AGENT NOTES RT AT BEDSIDE FOR STAT ABG; AWAITING RESULTS; WILL CONT TO MONITOR
[2020-04-07 00:55] LABS: ABG BASE EXCESS 1.6 mmol/L; ABG OXYGEN SATURATION 98.2 % (92.0-98.5); ABG PCO2 34.3 mmHg (35.0-45.0); ABG PH 7.473 (7.350-7.450); ABG PO2 102.4 mmHg (75.0-100.0); AaDO2 85.6 mmHg; COHb 1.4 % (0.5-1.5); MetHb 0.5 % (0.0-1.5); O2Hb 96.3 % (94.0-97.0); SITE, ABG Right Radial
[2020-04-07] MEDS: FUROSEMIDE 40 MG/4 ML VIAL IV SCH ×2 (01:15→08:28)
[2020-04-07 04:00] VITALS: BP 116/78
[2020-04-07] MEDS: BLOOD SUGAR DIAGNOSTIC 1 EACH STRIP IN SCH ×4 (06:38→21:46)
[2020-04-07] MEDS: HYDROCODONE/APAP 5/325MG 1 EACH TABLET PO PRN ×3 (06:40→17:17)
--- NOTE | 2020-04-07 06:53 | NUR ---
KEY HOLDER CLOSING NOTES PATIENT RESTING/SITTING IN BED COMFORTABLY; A/OX4; BREATHING EVEN AND UNLABORED; NO SOB NOTED; PATIENT ON 4LPM VIA NC; TELE MONITOR READS S.TACHY C PVCS 103BPM; R HAND #20 HL INTACT AND PATENT; FLUSHING WELL; NO S/S OF REDNESS OR INFILTRATION NOTED; PATIENT REQUESTING NORCO FOR PAIN MANAGEMENT; NORCO ADMINISTERED PER MD ORDER; PER PATIENT, IF HE IS ABLE TO BE PUT TO SLEEP IN ORDER TO DO CTA, PATIENT WILL AGREE TO TRY AGAIN IN ORDER TO GET THE TEST DONE; WILL INFORM DAY SHIFT; PATIENT ABLE TO MAKE NEEDS KNOWN; ALL NEEDS RENDERED; SAFETY PRECAUTIONS IMPLEMENTED; BED LOCKED IN LOW POSITION; SIDE RAILSX2; CALL LIGHT WITHIN EASY REACH; WILL ENDORSE GASTON TO ONCOMING SHIFT
--- NOTE | 2020-04-07 07:20 | NUR ---
RN OPENING NOTES PATIENT IN BED RESTING. NOT IN ANY FORM OF DISTRESS. DENIED PAIN OR DISCOMFORT AT THIS TIME. IV ACCESS INTACT AND PATENT. SAFETY MEASURES IN PLACED. BED IN LOW/LOCKED PSOTION, SIDERAILS UPX2, CALL ROSELIA GUSMAN. WILL MONCLOVER DORAN
[2020-04-07 07:22] LABS: BASOPHILS # (AUTO) 0.1 /CMM (0.0-0.2); BASOPHILS % (AUTO) 0.5 % (0.0-2.0); EOSINOPHILS % (AUTO) 0.2 % (0.0-6.0); HEMATOCRIT 49 % (39-51); HEMOGLOBIN 15.3 g/dL (13.5-17.5); LYMPHOCYTES % (AUTO) 7.4 % (20.0-44.0); MEAN CORPUSCULAR HGB CONC 31 g/dl (31.0-36.0); MEAN CORPUSCULAR VOLUME 80 fL (80-96); MONOCYTES # (AUTO) 1.3 /CMM (0.1-1.30); MONOCYTES % (AUTO) 9.4 % (2.0-12.0); NEUTROPHILS # (AUTO) 11.5 /CMM (1.8-8.9); NEUTROPHILS % (AUTO) 82.5 % (43.0-81.0); PLATELET COUNT (AUTO) 167 /CMM (150-450); RED BLOOD CELL COUNT(AUTO) 6.06 MIL/uL (4.5-6.0)
[2020-04-07 07:33] LABS: CALCIUM, SERUM 8.1 mg/dL (8.5-10.1); MAGNESIUM 1.8 mg/dL (1.8-2.4); POTASSIUM 2.9 mmol/L (3.5-5.1)
[2020-04-07 08:00] VITALS: BP 109/67
[2020-04-07] MEDS: APIXABAN 5 MG TABLET PO SCH ×2 (08:29→17:20)
[2020-04-07] MEDS: ASPIRIN EC 81 MG TABLET.DR PO SCH (08:32)
[2020-04-07] MEDS: CARVEDILOL 12.5 MG TABLET PO SCH ×2 (08:42→17:18)
[2020-04-07] MEDS: LOSARTAN POTASSIUM 25 MG TABLET PO SCH (08:43)
[2020-04-07] MEDS: ISOSORBIDE MONONITRATE (30MG) 30 MG TAB.SR.24H PO SCH (08:43)
[2020-04-07] MEDS: POTASSIUM CHLORIDE 20 MEQ TAB.PRT.SR PO SCH ×2 (11:02→11:55)
[2020-04-07 12:00] VITALS: BP 114/69
[2020-04-07] MEDS: DIGOXIN 0.125 MG TABLET PO SCH (12:23)
[2020-04-07] MEDS ORDERED: POTASSIUM CHLORIDE 20 MEQ POWDER PACKET ONE (12:42)
[2020-04-07] MEDS: POTASSIUM CHLORIDE 20 MEQ POWDER PACKET PO SCH ×3 (12:45→15:09)
[2020-04-07] MEDS: FUROSEMIDE 100 MG/10 ML VIAL IV SCH ×3 (13:53→21:30)
[2020-04-07 16:00] VITALS: BP 108/56
[2020-04-07] MEDS ORDERED: LORAZEPAM INJ 2 MG/ML VIAL IV PRN (18:30)
--- NOTE | 2020-04-07 19:00 | NUR ---
RN NOTES FOR CT SCAN TONIGHT. PER STEPHEN CHILD NP. GIVE ATIVAN 1MG PRIOR TO CT SCAN AND NURSE SHOULD GO WITH HIM. WILL ENDORSED TO NIGHT RN
--- NOTE | 2020-04-07 19:25 | NUR ---
RN CLOSING NOTES PATIENT IN STABLE CONDITION. ALL NEEDS ATTENDED AND PROVIDED. ALL DUE MEDS GIVEN ORDERED. ASSISTED WITH ADLS. KEPT PATIENT SAFE AND COMFORTABLE. BED IN LOW/LOCKED POSITION. SIDERAILS UPX2, CALL LIGHT IN REACH. ENDORSED TO JOSE RN FOR GASTON. Addendum: 04/07/20 at 1929 by BERNARDO BARRETT ATIVAN 1MG IV PRIOR TO CT SCAN ENDORSED TO GELY MURPHY
--- NOTE | 2020-04-07 19:30 | NUR ---
EQUIPMENT CLEANER OPENING NOTES RECEIVED PATIENT RESTING IN BED COMFORTABLY; A/OX4; PATIENT ON 4LPM VIA NC; TOLERATING WELL, NO SOB NOTED; BREATHING EVEN AND UNLABORED; TELE MONITOR READS S. TACHY WITH PVCS; R HAND # 20 INTACT AND PATENT, FLUSHING WELL; NO S/S OF REDNESS OR INFILTRATION NOTED; PER MORNING SHIFT, CTA PROCEDURE TO BE DONE STAT, ADMINISTER ATIVAN AND ACCOMPANY PATIENT TO CT SCAN; WILL CONTACT CT TO CLARIFY AND CONFIRM; SAFETY PRECAUTIONS IMPLEMENTED; BED LOCKED IN LOW POSITION; SIDE RAILSX2; CALL LIGHT WITHIN EASY REACH; WILL CONT TO MONITOR
--- NOTE | 2020-04-07 19:40 | NUR ---
WICKER WORKER NOTES CALLED CT TO CLARIFY CTA, NO ANSWER; WILL ATTEMPT AGAIN
[2020-04-07 20:00] VITALS: BP_SYST 123; BP_DIAS 64; BP_DIAS 69
[2020-04-07] MEDS: INSULIN REGULAR, HUMAN 100 UNIT/ML 3 ML VIAL SQ PRN (21:49)
[2020-04-07] MEDS: ATORVASTATIN 40 MG TABLET PO SCH (22:00)
--- NOTE | 2020-04-07 22:00 | NUR ---
PHOSPHORIC ACID SUPERVISOR NOTES PATIENT REFUSING TO TAKE MEDICATION OTHER THAN INSULIN COVERAGE AT THIS TIME; PATIENT IS UPSET THAT HE IS UNABLE TO EAT D/T AWAITING CTA PROCEDURE; SPOKE WITH CHARGE NURSE AND SHE IS AWARE; STILL ATTEMPTING IV ACCESS FOR PATIENT IN ORDER TO PROCEED; RADIOLOGY AWARE; WILL CONT TO MONITOR
[2020-04-07] MEDS ORDERED: IOHEXOL-350 100 ML VIAL IV ONE (22:37)
[2020-04-07] MEDS ORDERED: IV NS 0.9% 250 ML IV ONE (22:37)
[2020-04-07] MEDS ORDERED: CT SWABBABLE VALVE TRANS SET 1 EA INFUS.SET MC ONE (22:37)
--- NOTE | 2020-04-07 22:40 | NUR ---
HUMAN RESOURCES REPRESENTATIVE NOTES IV ACCESS OBTAINED, L AC #20; SPOKE WITH RADIOLOGY TO INFORM THEM OF IV ACCESS; PER MATTEO, SHE SAID SHE WILL INFORM THEM AND HAVE RADIOLOGY CALL ME BACK ONCE THEY ARE ON THE WAY UP SO ATIVAN CAN BE ADMINISTERED PRIOR TO PROCEDURE; CHARGE NURSE AWARE, WILL CONT TO MONITOR
--- NOTE | 2020-04-07 23:22 | NUR ---
MECHANICAL LABORATORY TECHNICIAN NOTES PATIENT WAS ABLE TO COMPLETE CTA PROCEDURE; BACK ON UNIT, PATIENT RESTING IN BED COMFORTABLY; TELE MONITOR RE-ATTACHED; WILL CONT TO MONITOR; AWAITING RESULTS
[2020-04-08] VITALS (26 sets, daily range): BP systolic 66–165; BP diastolic 35–111
[2020-04-08] MEDS ORDERED: HEPARIN INFUSION/D5W 500 ML IV PRN (00:30)
--- NOTE | 2020-04-08 00:38 | NUR ---
SWIMMING INSTRUCTOR NOTES PER SHELLEY DNP, ORDER STAT ABG; VERIFIED ORDER WITH JANAE, RT; RT WILL COME UP SHANT TO COLLECT ABG; WILL AWAIT RESULTS BEFORE PROCEEDING PER SHELLEY; PATIENT IN DISTRESS, SOB NOTED; PATIENT ON 4LPM VIA NC AND SATTING AT 95%; WILL CONT TO MONITOR;
[2020-04-08 00:56] LABS: ABG OXYGEN SATURATION 95.7 % (92.0-98.5); ABG PCO2 42.2 mmHg (35.0-45.0); ABG PH 7.448 (7.350-7.450); ABG PO2 72.6 mmHg (75.0-100.0); AaDO2 135.1 mmHg; MetHb 0.3 % (0.0-1.5); O2Hb 93.5 % (94.0-97.0); SITE, ABG Right Radial
--- NOTE | 2020-04-08 01:59 | NUR ---
FINISH CARPENTER NOTES REPORT GIVEN TO RODRIGO FOR GASTON; PATIENT TRANSFERRED TO ICU BED 261 PER ACLS PROTOCOL; ACCOMPANIED BY CORRECTION OFFICER SUPERVISOR, AND 2 RNS; BELONGINGS AND CHART GIVEN TO PRIMARY NURSE
[2020-04-08] MEDS ORDERED: HEPARIN INFUSION/D5W 500 ML IV ONE (02:11)
--- NOTE | 2020-04-08 02:27 | NUR ---
ICU/RN RECEIVED PATIENT FROM [facility] NURSE.PATIENT IS ALERT X3 BUT SPEECH IS MUMBLED AND AT TIMES DIFFICULT TO UNDERSTAND. PATIENT IS TACHYPNEIC RESPIRATIONS IN THE MID 30'S BUT PATIENT DOES NOT COMPLAIN OF ANY SOB BUT SHOWS SOME LABORED BREATHING. PATIENT RECEIVED AT 6L WITH NC BUT DECREASED O2 TO 2L PATIENT IS CURRENTLY SATURATING AT 96%. HE DOES COMPLAIN OF LEFT SIDED PAIN. SINUS TACH ON THE MONITOR HR AT 106. VS IN RANGE. BLE EDEMA PITTING AT +3. URINAL AT BEDSIDE. ALL SAFETY PRECAUTIONS APPLIED. WILL CONTINUE TO MONITOR PATIENT.
--- NOTE | 2020-04-08 02:45 | NUR ---
HEPARIN STARTED AT 800 U/HR 16ML/HR.
[2020-04-08] MEDS: HYDROCODONE/APAP 5/325MG 1 EACH TABLET PO PRN ×4 (03:29→19:48)
[2020-04-08 05:48] LABS: BASOPHILS % (AUTO) 0.2 % (0.0-2.0); EOSINOPHILS % (AUTO) 1.2 % (0.0-6.0); HEMATOCRIT 46 % (39-51); HEMOGLOBIN 14.3 g/dL (13.5-17.5); LYMPHOCYTES # (AUTO) 0.9 /CMM (0.8-4.8); LYMPHOCYTES % (AUTO) 7.8 % (20.0-44.0); MEAN CORPUSCULAR HGB CONC 31 g/dl (31.0-36.0); MEAN CORPUSCULAR VOLUME 80 fL (80-96); MONOCYTES # (AUTO) 1.2 /CMM (0.1-1.30); MONOCYTES % (AUTO) 9.7 % (2.0-12.0); NEUTROPHILS # (AUTO) 9.9 /CMM (1.8-8.9); NEUTROPHILS % (AUTO) 81.1 % (43.0-81.0); PLATELET COUNT (AUTO) 171 /CMM (150-450); RED BLOOD CELL COUNT(AUTO) 5.69 MIL/uL (4.5-6.0); WHITE BLOOD COUNT (AUTO) 12.2 K/uL (4.3-11.0)
[2020-04-08 06:02] LABS: ALBUMIN 2.4 g/dL (3.4-5.0); BILIRUBIN,TOTAL 2.2 mg/dL (0.2-1.0); CALCIUM, SERUM 7.9 mg/dL (8.5-10.1); MAGNESIUM 1.7 mg/dL (1.8-2.4); PHOSPHORUS 2.5 mg/dL (2.5-4.9); POTASSIUM 2.9 mmol/L (3.5-5.1); TOTAL PROTEIN, SERUM 5.8 g/dL (6.4-8.2)
[2020-04-08] MEDS: BLOOD SUGAR DIAGNOSTIC 1 EACH STRIP IN SCH ×4 (07:44→21:42)
[2020-04-08] MEDS: LOSARTAN POTASSIUM 25 MG TABLET PO SCH (09:20)
[2020-04-08] MEDS: Magnesium 1GM/D5W 100ML PREMIX 100 ML IV SCH ×2 (09:20→10:48)
[2020-04-08] MEDS: ISOSORBIDE MONONITRATE (30MG) 30 MG TAB.SR.24H PO SCH (09:21)
[2020-04-08] MEDS: ASPIRIN EC 81 MG TABLET.DR PO SCH (09:21)
[2020-04-08] MEDS: POTASSIUM CHLORIDE 20 MEQ TAB.PRT.SR PO SCH ×7 (09:21→16:30)
[2020-04-08] MEDS: CARVEDILOL 12.5 MG TABLET PO SCH ×2 (09:21→16:30)
--- NOTE | 2020-04-08 11:05 | NUR ---
REPORT GIVEN TO ROBBIE FOR GASTON.
--- NOTE | 2020-04-08 11:30 | NUR ---
RN OPENING NOTE RECEIVED PATIENT FROM BEAU HONG FOR GASTON. PATIENT RESTING IN BED COMFORTABLY, NO ACUTE DISTRESS NOTED. WILL CONTINUE TO MONITOR CLOSELY. SAFETY MAINTAINED, CALL LIGHT WITHIN REACH, WILL CONTINUE TO MONITOR CLOSELY.
[2020-04-08] MEDS: ENOXAPARIN SODIUM 100 MG/ML DISP.SYRIN SQ SCH ×2 (11:36→22:19)
[2020-04-08] MEDS: INSULIN REGULAR, HUMAN 100 UNIT/ML 3 ML VIAL SQ PRN ×2 (11:45→17:04)
[2020-04-08] MEDS: DIGOXIN 0.125 MG TABLET PO SCH (13:00)
--- NOTE | 2020-04-08 13:00 | NUR ---
RN NOTES: PT REFUSED K DUR FOR 1200 AND 1300, PT WAS EDUCATED ABOUT ADVANTAGES, BUT HE STILL REFUSED TO TAKE THE MEDICATION. WILL CONTINUE TO MONITOR CLOSELY.
--- NOTE | 2020-04-08 14:54 | NUR ---
RN NOTES: PATIENT RECONSIDERED TAKING THE K DUR AND THE MEDICATION WAS ADMINISTERED ORDERED. WILL CONTINUE TO MONITOR CLOSELY.
--- NOTE | 2020-04-08 17:00 | NUR ---
RN NOTE URINE COLLECTED AND SENT TO LAB FOR DRUG SCREENING. SAFETY MAINTAINED, CALL LIGHT WITHIN REACH, WILL CONTINUE TO MONITOR CLOSELY.
--- NOTE | 2020-04-08 18:55 | NUR ---
RN CLOSING NOTES: PT REMAINED IN BED, HOB ELEVATED. PT DID NOT SHOW ANY SIGNS OF RESPIRATORY DISTRESS, BREATHING EVEN AND UNLABORED. REMAIN ON 2L O2 SATURATING WELL. PT REFUSED GETTING A MIDLINE. SAFETY MAINTAINED, CALL LIGHT WITHIN REACH. ENDORSED TO THE PM NURSE FOR CONTINUATION OF CARE.
[2020-04-08] MEDS: ATORVASTATIN 40 MG TABLET PO SCH (21:32)
[2020-04-09] VITALS (17 sets, daily range): BP systolic 92–140; BP diastolic 31–77
--- NOTE | 2020-04-09 03:50 | NUR ---
MANUFACTURING MECHANIC: CALLED AND NOTIFIED ON-CALL TAMMY WALTON THAT PT IS STILL INTERMITTENTLY COUGHING WT SMALL AMT. OF HEMOPTYSIS. REQUESTED FOR COUGH SYRUP. LEASING PROPERTY MANAGER WT NEW ORDER. NOTED AND CARRIED OUT. PT REMAINS ON 2L 02 VIA NC WT HOB AT HIGH SHAVER'S AT ALL TIMES OR HAS DIFFICULTY BREATHING. SAID HE ALWAYS SLEEPS WT HOB ELEVATED. SR-ST WT HR IN LOW 100s ON ROENTGENOLOGIST. AFEBRILE. BP WITHIN HIS BASELINE. SAFETY PRECAUTION NOTED. WILL CONTINUE TO MONITOR.
[2020-04-09] MEDS ORDERED: GUAIFENESIN/CODEINE 10 ML UDC PO PRN (04:00)
[2020-04-09 04:22] LABS: BASOPHILS # (AUTO) 0.1 /CMM (0.0-0.2); BASOPHILS % (AUTO) 1.4 % (0.0-2.0); HEMATOCRIT 47 % (39-51); HEMOGLOBIN 15.2 g/dL (13.5-17.5); LYMPHOCYTES # (AUTO) 1.4 /CMM (0.8-4.8); LYMPHOCYTES % (AUTO) 13.9 % (20.0-44.0); MEAN CORPUSCULAR HGB CONC 32 g/dl (31.0-36.0); MEAN CORPUSCULAR VOLUME 80 fL (80-96); MONOCYTES % (AUTO) 10.5 % (2.0-12.0); NEUTROPHILS % (AUTO) 72.2 % (43.0-81.0); PLATELET COUNT (AUTO) 196 /CMM (150-450); RED BLOOD CELL COUNT(AUTO) 5.92 MIL/uL (4.5-6.0); WHITE BLOOD COUNT (AUTO) 9.8 K/uL (4.3-11.0)
[2020-04-09 04:30] LABS: ALBUMIN 2.5 g/dL (3.4-5.0); BILIRUBIN,TOTAL 1.1 mg/dL (0.2-1.0); CREATININE 0.9 mg/dL (0.6-1.3); MAGNESIUM 2.4 mg/dL (1.8-2.4); PHOSPHORUS 2.8 mg/dL (2.5-4.9); POTASSIUM 3.9 mmol/L (3.5-5.1); TOTAL PROTEIN, SERUM 6.4 g/dL (6.4-8.2)
[2020-04-09] MEDS: HYDROCODONE/APAP 5/325MG 1 EACH TABLET PO PRN ×2 (04:58→20:13)
--- NOTE | 2020-04-09 06:27 | NUR ---
WASHTUB WORKER HELPER: DR. GRACIA AT BEDSIDE TO EVALUATE PT. MD MADE AWARE THAT PT. HAS INTERMITTENT COUGHING UP WT BLOODY SPUTUM. PER MD, IT'S CAUSE OF ANTICOAGULANT USE. NO OTHER SIGNIFICANT GASTON DURING THE SHIFT.
--- NOTE | 2020-04-09 07:00 | NUR ---
ICU OPENING NOTES RECEIVED PATIENT AWAKE AND RESTING COMFORTABLY, HE IS AOX4, VERBAL, AND AMBULATORY. HE IS ON 2L OF OXYGEN VIA NC, TOLERATING WELL. TELE MONITOR SHOWING SR ST. SKIN IS INTACT. IV SITE ON LAC 20 G IS PATENT AND INTACT. PT SCHEDULED FFOR CTCA AND PACEMAKER PLACEMENT TODAY. SAFETY MEASURES HAVE BEEN IMPLEMENTED, CALL LIGHT IS WITHIN REACH, BED IS IN LOWEST AND LOCKED POSITION, SIDE RAILS UP X2, WILL CONTINUE TO MONITOR FOR ANY CHANGES.
[2020-04-09] MEDS: ENOXAPARIN SODIUM 100 MG/ML DISP.SYRIN SQ SCH ×2 (07:31→22:05)
--- NOTE | 2020-04-09 07:32 | NUR ---
GERIATRIC NURSING ASSISTANT NOTES DAILY LOVENOX DOSE GIVEN EARLY PER DR. GRACIA. PT TO HAVE CT CA AND ICD PLACEMENT, WILL CONTINUE TO MONITOR FOR ANY CHANGES.
[2020-04-09] MEDS: FUROSEMIDE 100 MG/10 ML VIAL IV SCH ×3 (07:41→15:30)
[2020-04-09] MEDS: BLOOD SUGAR DIAGNOSTIC 1 EACH STRIP IN SCH ×4 (08:00→21:54)
[2020-04-09] MEDS: INSULIN REGULAR, HUMAN 100 UNIT/ML 3 ML VIAL SQ PRN ×2 (08:01→22:06)
[2020-04-09] MEDS: ISOSORBIDE MONONITRATE (30MG) 30 MG TAB.SR.24H PO SCH (09:00)
[2020-04-09] MEDS ORDERED: LORAZEPAM INJ 2 MG/ML VIAL IV ONE (09:00)
[2020-04-09] MEDS: CARVEDILOL 12.5 MG TABLET PO SCH ×2 (09:10→17:00)
[2020-04-09] MEDS: ASPIRIN EC 81 MG TABLET.DR PO SCH (09:10)
[2020-04-09] MEDS: LOSARTAN POTASSIUM 25 MG TABLET PO SCH (09:11)
[2020-04-09] MEDS: POTASSIUM CHLORIDE 20 MEQ TAB.PRT.SR PO SCH ×3 (09:11→10:18)
--- NOTE | 2020-04-09 10:15 | NUR ---
RN NOTES 0900 DOSE OF ATIVAN PRIOR TO CTCA NOT GIVEN. CT ROOM IS DOWN AND PT HAS YET TO BE PICKED UP FOR PROCEDURE. WILL REORDER ONCE PT IS READY FOR PROCEDURE
[2020-04-09] MEDS: DIGOXIN 0.125 MG TABLET PO SCH (13:03)
[2020-04-09] MEDS ORDERED: IOHEXOL-350 100 ML VIAL IV ONE (13:29)
[2020-04-09] MEDS ORDERED: IV NS 0.9% 250 ML IV ONE (13:29)
--- NOTE | 2020-04-09 13:54 | NUR ---
ICU NOTES PT TRANSFERED TO CT SCAN FOR CTCA, ACCOMPANIED FOR ICU CHARGE NURSE FABIO HONG
[2020-04-09] MEDS ORDERED: LIDOCAINE 1% INJ 50 ML MDV IJ ONE (14:18)
[2020-04-09] MEDS ORDERED: IOHEXOL 240MG/ML 0 ML IV ONE (14:18)
[2020-04-09] MEDS ORDERED: FENTANYL PF 100MCG/2ML AMPUL ONE (14:20)
--- NOTE | 2020-04-09 15:31 | NUR ---
ICU NOTES PT TO BE TRANSFERRED TO ROOM 320-2 POST ICD PLACEMENT.
--- NOTE | 2020-04-09 17:18 | NUR ---
1530 lasix not given. pt not in unit. pharmacy notified.
[2020-04-09] MEDS ORDERED: FUROSEMIDE 100 MG/10 ML VIAL IV SCH (17:30)
--- NOTE | 2020-04-09 18:31 | NUR ---
RN END OF SHIFT SUMMARY PT IS A/OX4, AFEBRILE. PT TRANSFERRED FROM OR, S/P ICD PLACEMENT TO LCW. GAUZE AND TEGADERM APPLIED, CDI. CARDIAC MONITORED, NSR. ON 3L/MIN VIA NC. RESPIRATIONS ARE EVEN AND UNLABORED, NOT IN ANY ACUTE DISTRESS NOTED. DENIES ANY CHEST PAIN, SOB, N/V. ABDOMEN IS SOFT AND NONDISTENDED, BOWEL SOUNDS ARE PRESENT IN ALL 4 QUADRANTS UPON AUSCULTATION. DENIES ANY BLADDER DISCOMFORT. SKIN CDI. ALL NEEDS MET AND RENDERED. SAFETY MEASURES ARE IN PLACE. CALL LIGHT IS LEFT WITHIN REACH. WILL MONITOR AND CONTINUE POC.
--- NOTE | 2020-04-09 19:00 | NUR ---
tele ppa teacher initial notes received report from am nurse and seen pt in bed sitting in his bed awake and alert watching TV. denies any pain or any discomfort. dressing on his left upper chest dry and intact. kept him warm and comfortable at all times. pt only complaint at this time is to moved him to different room because of his room . I told him i will check to the charge nurse what we can do . pt states "ok ". kept him warm and comfortable at all times. will continue monitoring. place call light at reach.
[2020-04-09] MEDS: ATORVASTATIN 40 MG TABLET PO SCH (21:53)
--- NOTE | 2020-04-09 22:00 | NUR ---
tele disabilities services officer notes pt checked and he stated "thank you now is peaceful ." routine meds given and blood sugar checked down 106, no insulin due at this time. no signs of hypo glycemia noted. snacks also served. kept him comfortable at all times. place call light at reach. will continue monitoring.
[2020-04-10] VITALS: BP 157/75
[2020-04-10] MEDS: HYDROCODONE/APAP 5/325MG 1 EACH TABLET PO PRN ×3 (00:32→14:11)
--- NOTE | 2020-04-10 00:49 | NUR ---
tele cooling room attendant notes pt awake and alert watching TV asking for sling to put on his left arm for support. got ordered from teacher physically impaired MD and norco tablet also given per pt pain 04/21 . kept him warm and comfortable at all times. place call light at reach.
--- NOTE | 2020-04-10 02:39 | NUR ---
tele filenet developer notes pt sleeping at this time without any distress noted. tele Sinus Rhythm per monitor. will continue monitoring. place call light at reach.
--- NOTE | 2020-04-10 04:53 | NUR ---
tele plastic welder notes Checked pt if he's awake . pt woke up from earthquake , he states "u feel it ". then i asked him if he's ok . he said he's fine except he's generalized pain . refused tylenol and he requested to have [place] tablet instead. no signs of SOB noted . vital signs within normal limit. will continue monitoring.
[2020-04-10] MEDS: BLOOD SUGAR DIAGNOSTIC 1 EACH STRIP IN SCH ×2 (06:27→11:49)
[2020-04-10] MEDS: INSULIN REGULAR, HUMAN 100 UNIT/ML 3 ML VIAL SQ PRN (06:30)
--- NOTE | 2020-04-10 07:02 | NUR ---
TELE DEVELOPMENT TECHNICAL LEAD CLOSING NOTES PT AWAKE AND ALERT WATCHING TV AT THIS TIME. BLOOD SUGAR CHECKED DONE 240, 4 UNITS OF INSULIN GIVEN JOSE E SQ ORDERED. SPOKE TO THE PATIENT BECAUSE I NOTICED THAT HIS DRINKING A LOT OF SODA LAST NIGHT AND JUICE. AND HE'S AWARE OF HIS FLUID RESTRICTION. HE STATES 'I'M OK ". NO SIGNS OF HYPER GLYCEMIA NOTED. HE'S ALSO ON DAILY WAIT WHICH IS 298.2 LBS USING BED SCALE. NO SIGNS OF ANY DISTRESS NOTED. DRESSING ON HIS SURGERY SITE STILL DRY AND INTACT. ALL DUE MEDS GIVEN AND ALL NEEDS MET. TELE SINUS RHYTHM PER MONITOR. VITAL SIGSN STABLE KEPT HIM WARM AND COMFORTABLE AT ALL TIMES. PLACE CALL LIGHT AT REACH. SIDE RAILS X2 UP AND BED IN LOW AND LOCK IN POSITION. WILL ENDORSE TO AM NURSE FOR CONTINUITY OF CARE.
[2020-04-10 08:00] VITALS: BP 118/72
--- NOTE | 2020-04-10 08:00 | NUR ---
INDEPENDENT SALES REPRESENTATIVE OPENING NOTES RECEIVED PATIENT AWAKE AND RESTING COMFORTABLY, AOX4, VERBAL, AND AMBULATORY. ON 2L OF OXYGEN VIA NC, TOLERATING WELL. TELE MONITOR SHOWING SR HR 94. SKIN IS INTACT. IV SITE ON LAC 20 G IS PATENT AND INTACT. S/P ICD PLACEMENT WITH LEFT ARM SLING IN PLACE. DENIES PAIN AT THIS TIME. SAFETY MEASURES HAVE BEEN IMPLEMENTED, CALL LIGHT IS WITHIN REACH, BED IS IN LOWEST AND LOCKED POSITION, SIDE RAILS UP X2, WILL CONTINUE TO MONITOR FOR ANY CHANGES.
[2020-04-10 08:36] LABS: BASOPHILS % (AUTO) 0.6 % (0.0-2.0); EOSINOPHILS % (AUTO) 1.9 % (0.0-6.0); HEMATOCRIT 48 % (39-51); HEMOGLOBIN 15.2 g/dL (13.5-17.5); LYMPHOCYTES # (AUTO) 1.2 /CMM (0.8-4.8); LYMPHOCYTES % (AUTO) 14.8 % (20.0-44.0); MEAN CORPUSCULAR HGB CONC 32 g/dl (31.0-36.0); MEAN CORPUSCULAR VOLUME 80 fL (80-96); MONOCYTES # (AUTO) 0.8 /CMM (0.1-1.30); MONOCYTES % (AUTO) 10.6 % (2.0-12.0); NEUTROPHILS # (AUTO) 5.7 /CMM (1.8-8.9); NEUTROPHILS % (AUTO) 72.1 % (43.0-81.0); PLATELET COUNT (AUTO) 207 /CMM (150-450); WHITE BLOOD COUNT (AUTO) 7.9 K/uL (4.3-11.0)
[2020-04-10 08:39] LABS: CALCIUM, SERUM 7.8 mg/dL (8.5-10.1); CREATININE 0.9 mg/dL (0.6-1.3); MAGNESIUM 1.9 mg/dL (1.8-2.4); PHOSPHORUS 2.9 mg/dL (2.5-4.9)
[2020-04-10] MEDS ORDERED: FUROSEMIDE 80 MG TABLET PO SCH (09:00)
[2020-04-10] MEDS: LOSARTAN POTASSIUM 25 MG TABLET PO SCH (09:33)
[2020-04-10 09:34] VITALS: BP 118/72
[2020-04-10] MEDS: POTASSIUM CHLORIDE 20 MEQ TAB.PRT.SR PO SCH ×5 (09:34→13:29)
[2020-04-10] MEDS: ISOSORBIDE MONONITRATE (30MG) 30 MG TAB.SR.24H PO SCH (09:34)
[2020-04-10] MEDS: CARVEDILOL 12.5 MG TABLET PO SCH (09:34)
[2020-04-10] MEDS: ASPIRIN EC 81 MG TABLET.DR PO SCH (09:35)
[2020-04-10] MEDS: ENOXAPARIN SODIUM 100 MG/ML DISP.SYRIN SQ SCH (10:21)
[2020-04-10] MEDS: DIGOXIN 0.125 MG TABLET PO SCH (12:16)
--- NOTE | 2020-04-10 12:17 | NUR ---
PT TOOK HIS 4TH DOSE OF KLOR CON 30 MINS AFTER THE 3RD DOSE. PT WAS SAYING HE IS IN A RANDLE TO GO HOME INSPITE OF EXPLAINING THE RISKS AND BENEFITS.
[2020-04-10] MEDS ORDERED: FURO80TA3 PO (13:48)
[2020-04-10] MEDS ORDERED: APIX5TAB PO (13:48)
--- NOTE | 2020-04-10 15:45 | NUR ---
DISCHARGED PT HOME WITH STABLE V/S.AMBULATES WITH SLOW STEADY GAIT.DISCHARGE INSTRUCTIONS AND PRESCRIPTION NORCO PROVIDED.IV H/L REMOVED TO LT AC. DENIES PAIN AND DISTRESS.WITH LEFT ARM SLING IN PLACE.PT ACCOMPANIED BY HIS CHILDREN HOME VIA PRIVATE CAR.
[2020-04-11] MEDS ORDERED: POTASSIUM CHLORIDE 20 MEQ TAB.PRT.SR PO SCH (09:00)
== END 2020-04-10 15:45 | disposition home or self-care (01) | DRG 177 ==
LOC: ER 01:49 → TELE 04:15 → ICU 04-08 01:39 → TELE 04-09 16:27 → MED 04-10 11:48
PROVIDERS: ADMIT Nurse Practitioner Acute Care; ATTEND Student in an Organized Health Care Education/Training Program
PROC: 0JH60FZ Insertion of Subcutaneous Defibrillator Lead into Chest Subcutaneous Tissue and Fascia, Open Approach (ICD-10-PCS; principal; 2020-04-09)
PROC: B516YZA Fluoroscopy of Right Subclavian Vein using Other Contrast, Guidance (ICD-10-PCS; principal; 2020-04-09)
PROC: 05HA33Z Insertion of Infusion Device into Left Brachial Vein, Percutaneous Approach (ICD-10-PCS; 2020-04-10)
DX: I11.0 Hypertensive heart disease with heart failure (principal); I26.99 Other pulmonary embolism without acute cor pulmonale; I50.23 Acute on chronic systolic (congestive) heart failure; E78.5 Hyperlipidemia, unspecified; E44.0 Moderate protein-calorie malnutrition; I42.9 Cardiomyopathy, unspecified; D68.59 Other primary thrombophilia; J44.9 Chronic obstructive pulmonary disease, unspecified; E11.9 Type 2 diabetes mellitus without complications; Z90.49 Acquired absence of other specified parts of digestive tract; Z79.4 Long term (current) use of insulin; Z79.899 Other long term (current) drug therapy; Z79.82 Long term (current) use of aspirin; F14.20 Cocaine dependence, uncomplicated; E66.01 Morbid (severe) obesity due to excess calories; Z68.41 Body mass index [BMI] 40.0-44.9, adult; E87.6 Hypokalemia; J96.01 Acute respiratory failure with hypoxia; F17.200 Nicotine dependence, unspecified, uncomplicated; I21.A1 Myocardial infarction type 2; I25.10 Atherosclerotic heart disease of native coronary artery without angina pectoris; I25.2 Old myocardial infarction; I34.0 Nonrheumatic mitral (valve) insufficiency; Z79.01 Long term (current) use of anticoagulants; Z83.3 Family history of diabetes mellitus; Z95.810 Presence of automatic (implantable) cardiac defibrillator
CPT/HCPCS: 36415; 36600; 71045-TC; 80048-TC; 80053-TC; 80061-TC; 80076-TC; 80162-TC; 80305; 82962-TC; 83735-TC; 83880; 84100-TC; 84484-TC; 85025-TC; 85378-TC; 85730-TC; 87081-TC; 93970-TC; A4565; G0378; J1644; J1650; J1815; J1940; J2060; J3010; J3475; J3490; J7050; Q9966; Q9967

== ENCOUNTER 2020-04-13 23:09 | Emergency (ER) | payer OTHER ==
[~2020-04-13] VITALS: Ht 170.2 cm; Wt 130.6 kg
[~2020-04-13 23:09] MED LIST changes: +APIX5TAB PO; -FURO-144 PO; +FURO80TA3 PO; +LOSA25TA27 PO
--- NOTE | 2020-04-13 23:25 | NUR ---
PT CAME TO THE ED C/O BLE EDEMA PAIN AND SWELLING. PT AAOX4, RESPIRATIONS EVEN AND UNLABORED ON RA W/ NAD NOTED. DENIES SOB. PT CONNECTED TO THE RETORT LOADER AND POX.
--- NOTE | 2020-04-13 23:35 | NUR ---
XRAY AT BEDSIDE
[2020-04-13 23:40] LABS: BASOPHILS # (AUTO) 0.1 /CMM (0.0-0.2); BASOPHILS % (AUTO) 1.6 % (0.0-2.0); EOSINOPHILS % (AUTO) 3.7 % (0.0-6.0); HEMATOCRIT 46 % (39-51); HEMOGLOBIN 14.7 g/dL (13.5-17.5); LYMPHOCYTES # (AUTO) 1.3 /CMM (0.8-4.8); LYMPHOCYTES % (AUTO) 14.9 % (20.0-44.0); MEAN CORPUSCULAR HGB CONC 32 g/dl (31.0-36.0); MEAN CORPUSCULAR VOLUME 79 fL (80-96); MONOCYTES # (AUTO) 0.7 /CMM (0.1-1.30); MONOCYTES % (AUTO) 7.9 % (2.0-12.0); NEUTROPHILS # (AUTO) 6.4 /CMM (1.8-8.9); NEUTROPHILS % (AUTO) 71.9 % (43.0-81.0); PLATELET COUNT (AUTO) 260 /CMM (150-450); RED BLOOD CELL COUNT(AUTO) 5.76 MIL/uL (4.5-6.0); WHITE BLOOD COUNT (AUTO) 8.9 K/uL (4.3-11.0)
[2020-04-14 00:03] LABS: ALBUMIN 2.4 g/dL (3.4-5.0); BILIRUBIN,DIRECT 0.2 mg/dL (0.0-0.2); BILIRUBIN,TOTAL 0.4 mg/dL (0.2-1.0); CALCIUM, SERUM 8.5 mg/dL (8.5-10.1); CREATININE 0.9 mg/dL (0.6-1.3); POTASSIUM 3.3 mmol/L (3.5-5.1); TOTAL PROTEIN, SERUM 6.2 g/dL (6.4-8.2)
--- NOTE | 2020-04-14 00:17 | NUR ---
US AT BEDSIDE
[2020-04-14] MEDS ORDERED: POTASSIUM CHLORIDE 20 MEQ TAB.PRT.SR PO ONE ×2 (00:50→01:00)
[2020-04-14 01:19] VITALS: BP 103/85
== END 2020-04-14 01:20 | disposition home or self-care (01) ==
LOC: ER 23:09
DX: R60.0 Localized edema (principal); M79.672 Pain in left foot; M79.671 Pain in right foot; I42.9 Cardiomyopathy, unspecified; E11.9 Type 2 diabetes mellitus without complications; I11.0 Hypertensive heart disease with heart failure; I50.9 Heart failure, unspecified; J44.9 Chronic obstructive pulmonary disease, unspecified; Z95.0 Presence of cardiac pacemaker; Z90.89 Acquired absence of other organs; Z79.899 Other long term (current) drug therapy; Z79.4 Long term (current) use of insulin; Z79.82 Long term (current) use of aspirin
CPT/HCPCS: 36415; 71045-TC; 80048-TC; 80076-TC; 83880; 84484-TC; 85025-TC; 85730-TC; 93970-TC

== ENCOUNTER 2020-04-17 16:49 | Emergency (ER) | payer OTHER ==
[~2020-04-17] VITALS: Ht 172.7 cm; Wt 95.3 kg
[~2020-04-17 16:49] MED LIST changes: +ALBU90AE2 INH; -ALBU90AE2 PO; +BECL10.62 INH; -BECL10.62 MT; -ISOS30TA6 MT; +ISOS30TA6 PO
[2020-04-17] MEDS ORDERED: methylPREDNISolone SOD SUCC 125 MG/2ML VIAL ONE (17:28)
[2020-04-17] MEDS ORDERED: ALBUTEROL FS 2.5 MG/3 ML VIAL.NEB ONE (17:28)
[2020-04-17] MEDS ORDERED: IPRATROPIUM NEB FS 0.5 MG/2.5 ML AMPUL.NEB NEB ONE (17:30)
[2020-04-17] MEDS ORDERED: methylPREDNISolone SOD SUCC 125 MG/2ML VIAL IV ONE (17:30)
[2020-04-17] MEDS ORDERED: ALBUTEROL FS 2.5 MG/3 ML VIAL.NEB NEB ONE (17:30)
[2020-04-17 17:49] LABS: BASOPHILS # (AUTO) 0.1 /CMM (0.0-0.2); BASOPHILS % (AUTO) 1.6 % (0.0-2.0); EOSINOPHILS % (AUTO) 1.6 % (0.0-6.0); HEMATOCRIT 47 % (39-51); LYMPHOCYTES # (AUTO) 1.5 /CMM (0.8-4.8); LYMPHOCYTES % (AUTO) 19.9 % (20.0-44.0); MEAN CORPUSCULAR HGB CONC 32 g/dl (31.0-36.0); MEAN CORPUSCULAR VOLUME 79 fL (80-96); MONOCYTES # (AUTO) 0.6 /CMM (0.1-1.30); MONOCYTES % (AUTO) 7.8 % (2.0-12.0); NEUTROPHILS # (AUTO) 5.2 /CMM (1.8-8.9); NEUTROPHILS % (AUTO) 69.1 % (43.0-81.0); PLATELET COUNT (AUTO) 306 /CMM (150-450); RED BLOOD CELL COUNT(AUTO) 5.99 MIL/uL (4.5-6.0); WHITE BLOOD COUNT (AUTO) 7.5 K/uL (4.3-11.0)
--- NOTE | 2020-04-17 17:49 | NUR ---
BIBS FROM HOME TO ER BED 6. AAOX4. SOB BUT TALKING IN FULL SENTENCES. CAME IN FOR SHORTNESS OF BREATHING SINCE THIS MORNING. PER PT IT FEELS LIKE HIS COPD IS ACTING UP. PT NOTED WITH WHEEZING. PLACED ON 02 VIA NC @ 2LPM, PT IS BASELINE O2 USER [facility] HOME. MELIA MACIAS WAS AT THE BEDSIDE FOR EVAL. ORDERS RECEIVED NOTED AND CARRIED OUT.
[2020-04-17 18:03] LABS: CALCIUM, SERUM 8.4 mg/dL (8.5-10.1); CREATININE 0.9 mg/dL (0.6-1.3); POTASSIUM 4.2 mmol/L (3.5-5.1)
[2020-04-17 18:16] LABS: ALBUMIN 2.6 g/dL (3.4-5.0); BILIRUBIN,DIRECT 0.2 mg/dL (0.0-0.2); BILIRUBIN,TOTAL 0.6 mg/dL (0.2-1.0); TOTAL PROTEIN, SERUM 6.6 g/dL (6.4-8.2)
[2020-04-17] MEDS ORDERED: FURO80TA85 PO (18:22)
[2020-04-17] MEDS ORDERED: IPRA12.9 IH (18:22)
[2020-04-17] MEDS ORDERED: APIX5TAB PO (18:22)
[2020-04-17] MEDS ORDERED: SPIR25TA PO (18:22)
[2020-04-17] MEDS ORDERED: LISI10TA5 PO (18:23)
--- NOTE | 2020-04-17 18:52 | NUR ---
Patient does not wish to proceed with medical care recommended by MELIA Hood. Patient given information related to possible complications, up to and including , which could occur as a result of leaving the hospital at this time. Patient verbalizes understanding of risks involved due to leaving against medical advice. Patient has signed AMA form.
--- NOTE | 2020-04-17 18:55 | NUR ---
Spoke with Katiuska, behavioral health case manager @ [facility] for clinicals. informed that pt left AMA
[2020-04-17 18:57] VITALS: BP 121/78
== END 2020-04-17 18:59 | disposition home or self-care (01) ==
LOC: ER 16:52
DX: I11.0 Hypertensive heart disease with heart failure (principal); I50.9 Heart failure, unspecified; R60.0 Localized edema; R00.0 Tachycardia, unspecified; J44.9 Chronic obstructive pulmonary disease, unspecified; E11.9 Type 2 diabetes mellitus without complications; Z95.0 Presence of cardiac pacemaker; Z90.89 Acquired absence of other organs; Z79.82 Long term (current) use of aspirin; Z79.4 Long term (current) use of insulin; Z79.899 Other long term (current) drug therapy
CPT/HCPCS: 71045; 80048; 80076; 83880; 84484; 85025; 93005; 94644; 96374; 99285; J2930; 36415

== ENCOUNTER 2020-08-18 20:49 | Inpatient (IN) | payer OTHER ==
[~2020-08-18] VITALS: Ht 177.8 cm; Wt 122.9 kg
[2020-08-18 19:55] VITALS: BP 106/61
[~2020-08-18 20:49] MED LIST changes: -ASPI-1152 PO; +ASPI-1420 PO; -FURO80TA3 PO; +FURO80TA85 PO; +IPRA12.9 IH; +LISI10TA5 PO; +SPIR25TA PO
--- NOTE | 2020-08-18 20:52 | NUR ---
CHEYRA 83 FROM HOME FOR C/O L SIDED CP RADIATING TO THE L ARM 03/21 X2HR. PT STATES HE WAS "GETTING UP TO GO TO THE BATHROOM WHEN THE PAIN STARTED" PT AAOX4. PT 100% O2 WITH 3L VIA NC. VSS. LOWER EXTREMITY EDEMA +2 NOTED. RT HAND IV 20G. PT HOOKED TO THE FLIGHT SOFTWARE TEST ENGINEER AND POX. CALL LIGHT WITHIN REACH. WILL CONTINUE TO MONITOR.
--- NOTE | 2020-08-18 20:58 | NUR ---
BLOOD WAS COLLECTED AND SENT TO LAB
--- NOTE | 2020-08-18 21:00 | NUR ---
COVID SWAB WAS COLLECTED AND SENT TO LAB
[2020-08-18 21:20] LABS: BASOPHILS # (AUTO) 0.1 /CMM (0.0-0.2); BASOPHILS % (AUTO) 1.6 % (0.0-2.0); EOSINOPHILS % (AUTO) 2.5 % (0.0-6.0); HEMATOCRIT 51 % (39-51); HEMOGLOBIN 16.2 g/dL (13.5-17.5); LYMPHOCYTES # (AUTO) 1.8 /CMM (0.8-4.8); LYMPHOCYTES % (AUTO) 23.5 % (20.0-44.0); MEAN CORPUSCULAR HGB CONC 32 g/dl (31.0-36.0); MEAN CORPUSCULAR VOLUME 85 fL (80-96); MONOCYTES # (AUTO) 0.6 /CMM (0.1-1.30); MONOCYTES % (AUTO) 8.1 % (2.0-12.0); NEUTROPHILS # (AUTO) 4.8 /CMM (1.8-8.9); NEUTROPHILS % (AUTO) 64.3 % (43.0-81.0); PLATELET COUNT (AUTO) 216 /CMM (150-450); RED BLOOD CELL COUNT(AUTO) 5.98 MIL/uL (4.5-6.0); WHITE BLOOD COUNT (AUTO) 7.5 K/uL (4.3-11.0)
[2020-08-18 21:22] LABS: CALCIUM, SERUM 8.5 mg/dL (8.5-10.1); CREATININE 1.4 mg/dL (0.6-1.3); POTASSIUM 4.1 mmol/L (3.5-5.1)
[2020-08-18] MEDS ORDERED: NITROGLYCERIN PACKET 1 GM PACKET TOP ONE (21:30)
[2020-08-18 21:34] LABS: BILIRUBIN,DIRECT 0.3 mg/dL (0.0-0.2); BILIRUBIN,TOTAL 0.7 mg/dL (0.2-1.0); TOTAL PROTEIN, SERUM 6.4 g/dL (6.4-8.2)
--- NOTE | 2020-08-18 22:02 | NUR ---
ATTEMPTED TO GIVE REPORT. NO ANSWER
--- NOTE | 2020-08-18 22:23 | NUR ---
SECOND ATTEMPT TO GIVE REPORT.
--- NOTE | 2020-08-18 22:29 | NUR ---
GAVE REPORT TO CAROLEE FOR GASTON
--- NOTE | 2020-08-18 22:55 | NUR ---
TELE/RN ADMITTING NOTES: RECEIVED REPORT FORM ER NURSE PAUL. PT. ARRIVED TO THE UNIT AT 2255 VIA GURNEY UNDER ACLS PROTOCOL. ON 3L OXYGEN VIA NC, SATURATING WELL. INITIAL VS TAKEN. IN STABLE CONDITION. SKIN ASSESSED. WARM TO TOUCH. DRY AND INTACT. NO OPEN WOUNDS. PT. IS A/OX4 VERBALLY RESPONSIVE AND ABLE TO MAKE NEEDS KNOWN. PT HAS HX OF PREVIOUS HOSPITALIZATIONS AT [facility] SO HE IS FAMILIAR WITH UNIT. ORIENTED TO STAFF. HAS LABORED BREATHING AND SOB PRESENT WHEN ACTIVELY MOVING, RR 22. O2SAT OF 97%. COUGHING WITH NO SECRETIONS. DOCTOR BRODIE AWARE. NEGATIVE FOR COVID RAPID TEST. IV ON THE RIGHT HAND #20G. INTACT AND PATENT. CONDOM CATH PRESENT. PER ER NURSE, "PT REQUESTED IT. REFUSES DVT PUMPS. PT CAN AMBULATE WITH ASSIST BUT FEELS WEAK RIGHT NOW. URINAL AT BEDSIDE. SAFETY MEASURES IN PLACE. BED IN LOW, LOCKED POSITION WITH SR UPX2. CALL LIGHT WITHIN REACH. WILL CONTINUE TO MONITOR.
--- NOTE | 2020-08-18 23:00 | NUR ---
TELE/RN NOTES: TELE READING OF SR 90S AT THIS TIME. NO C/O CHEST PAIN AT THIS TIME.
[2020-08-18] MEDS ORDERED: BECLOMETHASONE DIPROPIONATE INH PRN (23:30)
[2020-08-18 23:50] LABS: BAND % (MANUAL) 1 % (0.0-5.0); EOSINOPHILS % (MANUAL) 3 % (0-4); LYMPHOCYTES % (MANUAL) 21 % (16-48); MONOCYTES % (MANUAL) 12 % (0-11.0); NEUTROPHILS % (MANUAL) 63 (42-76)
[2020-08-19] VITALS: BP 127/72
[2020-08-19] MEDS ORDERED: ACETAMINOPHEN 325 MG TABLET PO PRN
[2020-08-19] MEDS ORDERED: DEXTROSE 50%-WATER 50 ML DISP.SYRIN IV PRN
[2020-08-19] MEDS ORDERED: Z GUARD REMEDY 2 OZ OINT TP PRN
[2020-08-19] MEDS ORDERED: ONDANSETRON HCL/PF 4 MG/2 ML VIAL IVP PRN
[2020-08-19] MEDS ORDERED: *INSULIN REGULAR(HUMULIN R)HUM 100 UNIT/ML VIAL SQ PRN
[2020-08-19] MEDS ORDERED: HYDROCODONE/APAP 5/325MG TABLET PO PRN
[2020-08-19] MEDS ORDERED: MAGNESIUM HYDROXIDE 30 ML UDC PO PRN
[2020-08-19] MEDS ORDERED: MAG HYDROX/AL HYDROX/SIMETH 30 ML UDC PO PRN
[2020-08-19] MEDS ORDERED: INSULIN REGULAR, HUMAN 100 UNIT/ML 3 ML VIAL SQ PRN
[2020-08-19] MEDS: FUROSEMIDE 40 MG/4 ML VIAL IV SCH ×3 (00:15→17:34)
[2020-08-19] MEDS ORDERED: GUAIFENESIN/D-METHORPHAN HB 5 ML UDC PO PRN (01:00)
[2020-08-19] MEDS: TEMAZEPAM 15 MG CAPSULE PO PRN ×2 (01:11→21:27)
[2020-08-19 04:00] VITALS: BP 123/62
[2020-08-19 06:21] LABS: BASOPHILS # (AUTO) 0.1 /CMM (0.0-0.2); BASOPHILS % (AUTO) 1.2 % (0.0-2.0); HEMATOCRIT 52 % (39-51); HEMOGLOBIN 16.6 g/dL (13.5-17.5); LYMPHOCYTES # (AUTO) 2.1 /CMM (0.8-4.8); LYMPHOCYTES % (AUTO) 28.7 % (20.0-44.0); MEAN CORPUSCULAR HGB CONC 32 g/dl (31.0-36.0); MEAN CORPUSCULAR VOLUME 86 fL (80-96); MONOCYTES # (AUTO) 0.5 /CMM (0.1-1.30); MONOCYTES % (AUTO) 7.6 % (2.0-12.0); NEUTROPHILS # (AUTO) 4.3 /CMM (1.8-8.9); NEUTROPHILS % (AUTO) 60.5 % (43.0-81.0); PLATELET COUNT (AUTO) 199 /CMM (150-450); RED BLOOD CELL COUNT(AUTO) 6.03 MIL/uL (4.5-6.0); WHITE BLOOD COUNT (AUTO) 7.2 K/uL (4.3-11.0)
[2020-08-19 06:39] LABS: CALCIUM, SERUM 8.4 mg/dL (8.5-10.1); CREATININE 1.2 mg/dL (0.6-1.3); MAGNESIUM 1.9 mg/dL (1.8-2.4); POTASSIUM 3.7 mmol/L (3.5-5.1)
[2020-08-19] MEDS: BLOOD SUGAR DIAGNOSTIC 1 EACH STRIP VI SCH ×4 (06:47→21:42)
--- NOTE | 2020-08-19 07:30 | NUR ---
received pt. this am alert and oriented x3.sob with no exertion.dr. bryant in to rm. pt. reminded freq. to keep 02 on hob elevated.
--- NOTE | 2020-08-19 07:36 | NUR ---
TELE/RN CLOSING NOTES: PT REMAINS STABLE, ON 3L OXYGEN VIA NC, SATURATING WELL. PT. IS A/OX4 VERBALLY RESPONSIVE AND ABLE TO MAKE NEEDS KNOWN. USES THE URINAL. DVT PUMPS ORDERED BUT PT. REFUSES DVT PUMPS. PT CAN AMBULATE WITH ASSIST BUT FEELS WEAK RIGHT NOW. SAFETY MEASURES IN PLACE. BED IN LOW, LOCKED POSITION WITH SR UPX2. CALL LIGHT WITHIN REACH. ALL NURSING NEEDS MET AND RENDERED. ALL DUE MEDS GIVEN ORDERED. WILL ENDORSE TO DAY SHIFT FOR GASTON.
[2020-08-19 08:00] VITALS: BP 112/74
[2020-08-19] MEDS ORDERED: ISOSORBIDE MONONITRATE (30MG) 30 MG TAB.SR.24H PO SCH (09:00)
[2020-08-19] MEDS ORDERED: LISINOPRIL (10MG) 10 MG TABLET PO SCH (09:00)
[2020-08-19] MEDS: LISINOPRIL (10MG) 10 MG TABLET PO SCH ×2 (09:00→17:00)
[2020-08-19] MEDS ORDERED: LOSARTAN POTASSIUM 25 MG TABLET PO SCH (09:00)
[2020-08-19] MEDS ORDERED: SPIRONOLACTONE 25 MG TABLET PO SCH (09:00)
[2020-08-19] MEDS ORDERED: ASPIRIN EC 81 MG TABLET.DR PO SCH (09:00)
[2020-08-19] MEDS: INSULIN ASPART/LISPRO 100 UNIT/ML CARTRIDGE SQ SCH ×3 (09:29→17:00)
[2020-08-19] MEDS: POTASSIUM CHLORIDE 20 MEQ TAB.PRT.SR PO SCH ×2 (09:40→17:34)
[2020-08-19] MEDS: CARVEDILOL 12.5 MG TABLET PO SCH ×2 (09:41→17:34)
[2020-08-19] MEDS: APIXABAN 5 MG TABLET PO SCH ×2 (09:43→17:36)
--- NOTE | 2020-08-19 10:30 | NUR ---
hep lock leaking-removed and restarted in lt. wrist.
[2020-08-19] MEDS: ALBUTEROL FS 2.5 MG/3 ML VIAL.NEB NEB PRN ×3 (12:19→21:08)
[2020-08-19] MEDS: IPRATROPIUM NEB FS 0.5 MG/2.5 ML AMPUL.NEB NEB PRN ×3 (12:19→21:08)
[2020-08-19] MEDS ORDERED: DIGOXIN 0.125 MG TABLET PO SCH (13:00)
--- NOTE | 2020-08-19 15:07 | NUR ---
urine sent as per orders.
--- NOTE | 2020-08-19 15:31 | NUR ---
states hungry-ate sm. amt. lunch requesting jello and juice.rn to recheck sugar.had insulin with lunch.
[2020-08-19 16:00] VITALS: BP 115/77
[2020-08-19 16:16] LABS: BILIRUBIN,URINE NEGATIVE (NEGATIVE); BLOOD, URINE NEGATIVE Ery/uL (NEGATIVE); COLOR,URINE YELLOW (YELLOW); LEUKOCYTE ESTERASE ,URINE NEGATIVE (NEGATIVE); NITRITE, URINE NEGATIVE (NEGATIVE); PH,URINE 5.5 (5.0-8.0); PROTEIN,URINE 100 mg/dl (NEGATIVE); UGLUCOSE NEGATIVE (NEGATIVE); UROBILINOGEN,URINE 0.2 EU/dL (0.2)
[2020-08-19 16:19] LABS: URINE TOTAL PROTEIN 69.4 mg/dL (0-11.9)
--- NOTE | 2020-08-19 16:30 | NUR ---
ARMORED VEHICLE OFFICER LIGHT FREQ. BLOOD GLUCOSE UP.PT. STATES FEELS BETTER.
--- NOTE | 2020-08-19 17:30 | NUR ---
MEDICATED FOR COUGH WITH ROBITUSSIN.
[2020-08-19 17:53] LABS: BACTERIA,URINE Rare /HPF (None Seen); RBC,URINE NONE SEEN /HPF (0-2); WBC,URINE 0-2 /HPF (0-3)
[2020-08-19 17:54] LABS: SQUAMOUS EPITHELIAL CELL,UR Rare /HPF (None Seen)
--- NOTE | 2020-08-19 19:35 | NUR ---
TELERN SEEN SOB, 02 AT 3L VIA NC. SMALL OUTPUT FROM URINAL SEEN STATED HAS URGENCY URINATING. WANTED TO HAVE [place]IVAN CATH. HAVE RT EVAL PATIENT NEBULIZER STARTED.
[2020-08-19 19:55] LABS: EOSINOPHIL,URINE None Seen
[2020-08-19 20:00] VITALS: BP 94/74
[2020-08-19 20:27] VITALS: BP 94/74
[2020-08-19] MEDS ORDERED: ATORVASTATIN 40 MG TABLET PO SCH (22:00)
--- NOTE | 2020-08-19 22:20 | NUR ---
TELERN REMOVED OSULLIVAN STATES UNCOMFORTABLE. REQUESTED CONDOM CATH. TOOK RESTORIL. STILL HAS DIFFICULTY URINATING. BILATERAL WHEEZING, RT AT BEDSIDE.LASIX 10MG ONE TIME ORDER WITH BP MONITORING. REFUSED TO HAVE MED STATED WILL CALL ONCE READY. STARTED TO GET SLEEPY AFTER AN HOUR.
[2020-08-19] MEDS ORDERED: FUROSEMIDE 20 MG/2 ML VIAL IV ONE (23:00)
--- NOTE | 2020-08-20 00:25 | NUR ---
TELERN AWAKE ON AND OFF. GETTING OOB ON A CHAIR THIS TIME. BS 84 HAD SNACKS ATE WELL FLUIDS RESTRICTED FOR NOW. STILL REFUSED LASIX. CONDOM CATH ON THE FLOOR. STATED HAS BEEN USING URINAL AND FEELING BETTER THIS T SUSHANT.
--- NOTE | 2020-08-20 02:02 | NUR ---
TELERN DECIDED TO SIGN OUT AMA, EXPLAINED RISK OF LEAVING, STATED DID AAMA BEFORE AND HIS SON IS ON HIS WAY. STATED HE HAS OXYGEN AT HOME, AND HAS THINGS TO DO ONCE HE GETS HOME. NOTIFIED CN.
--- NOTE | 2020-08-20 02:10 | NUR ---
RUDI SEPULVEDA TAKEN OUT, TUAN OUT. ABOUT TO LEAVE.
--- NOTE | 2020-08-20 02:20 | NUR ---
TELEN DISCHARGED VIA PRIVATE CAR WITH SON. ALL PERSONAL BELONGINS WITH PATIENT
== END 2020-08-20 02:20 | disposition left against medical advice (07) | DRG 194 ==
LOC: ER 20:49 → TELE 22:12 → MED 08-19 08:20
PROVIDERS: ADMIT Internal Medicine; ATTEND Family Medicine
DX: I13.0 Hypertensive heart and chronic kidney disease with heart failure and stage 1 through stage 4 chronic kidney disease, or unspecified chronic kidney disease (principal); I50.23 Acute on chronic systolic (congestive) heart failure; J96.01 Acute respiratory failure with hypoxia; N17.0 Acute kidney failure with tubular necrosis; E11.22 Type 2 diabetes mellitus with diabetic chronic kidney disease; E78.5 Hyperlipidemia, unspecified; E83.42 Hypomagnesemia; E87.6 Hypokalemia; F17.200 Nicotine dependence, unspecified, uncomplicated; J44.9 Chronic obstructive pulmonary disease, unspecified; I42.9 Cardiomyopathy, unspecified; Z79.01 Long term (current) use of anticoagulants; Z86.711 Personal history of pulmonary embolism; Z79.899 Other long term (current) drug therapy; N18.9 Chronic kidney disease, unspecified; I25.10 Atherosclerotic heart disease of native coronary artery without angina pectoris; Z79.4 Long term (current) use of insulin; E11.42 Type 2 diabetes mellitus with diabetic polyneuropathy; F14.90 Cocaine use, unspecified, uncomplicated; Z68.38 Body mass index [BMI] 38.0-38.9, adult; I21.A1 Myocardial infarction type 2; E11.65 Type 2 diabetes mellitus with hyperglycemia; Z95.810 Presence of automatic (implantable) cardiac defibrillator; Z83.3 Family history of diabetes mellitus; E44.1 Mild protein-calorie malnutrition
CPT/HCPCS: 36415; 71045-TC; 80048-TC; 80076-TC; 81001; 82570-TC; 82962-TC; 83735-TC; 83880; 84100-TC; 84155-TC; 84300-TC; 84484-TC; 85025-TC; 85730-TC; 87081-TC; 93307-TC; 94799-TC; A4217; A4349; C9803; G0378; G0480; J1815; J1940

== ENCOUNTER 2020-09-03 05:32 | Emergency (ER) | payer OTHER ==
[~2020-09-03] VITALS: Ht 177.8 cm; Wt 128.8 kg
--- NOTE | 2020-09-03 05:35 | NUR ---
PT BIBRA FROM HOME C/O SOB X5HR LEARNING CENTER COORDINATOR. PT STATES HE WAS LAST TEST FOR COVID X2 WEEKS AGO, RESULTS NEGATIVE. PT ARRIVED TO [facility] 98% ON 3L NC, PT STATES HE IS NORMALLY ON 3L NC AT HOME. PT AAOX4. VITAL SIGNS STABLE. RESPIRATIONS EVEN AND UNLABORED. SKIN WARM AND INTACT. NO ACUTE DISTRESS NOTED AT THIS TIME. PLACED IN GOWN AND ON MONITOR, WILL CONTINUE TO MONITOR
[2020-09-03 05:59] LABS: BASOPHILS # (AUTO) 0.1 /CMM (0.0-0.2); BASOPHILS % (AUTO) 0.8 % (0.0-2.0); EOSINOPHILS % (AUTO) 1.5 % (0.0-6.0); HEMATOCRIT 52 % (39-51); HEMOGLOBIN 16.9 g/dL (13.5-17.5); LYMPHOCYTES # (AUTO) 1.7 /CMM (0.8-4.8); LYMPHOCYTES % (AUTO) 17.4 % (20.0-44.0); MEAN CORPUSCULAR HGB CONC 33 g/dl (31.0-36.0); MEAN CORPUSCULAR VOLUME 83 fL (80-96); MONOCYTES % (AUTO) 9.7 % (2.0-12.0); NEUTROPHILS % (AUTO) 70.6 % (43.0-81.0); PLATELET COUNT (AUTO) 196 /CMM (150-450)
--- NOTE | 2020-09-03 06:00 | NUR ---
RADIOLOGY AT BEDSIDE FOR XRAY
[2020-09-03 06:07] LABS: CALCIUM, SERUM 9.1 mg/dL (8.5-10.1); POTASSIUM 3.6 mmol/L (3.5-5.1)
[2020-09-03 06:20] LABS: ALBUMIN 3.2 g/dL (3.4-5.0); BILIRUBIN,DIRECT 0.3 mg/dL (0.0-0.2)
[2020-09-03] MEDS ORDERED: predniSONE 20 MG TABLET ONE (06:44)
--- NOTE | 2020-09-03 06:48 | NUR ---
COVID SWAB COLLECTED, CALLED LAB FOR HEALTHCARE ECONOMICS MANAGER
[2020-09-03] MEDS ORDERED: predniSONE 20 MG TABLET PO ONE (07:00)
[2020-09-03] MEDS ORDERED: FUROSEMIDE 20 MG/2 ML VIAL IV ONE (07:00)
[2020-09-03] MEDS ORDERED: FUROSEMIDE 20 MG/2 ML VIAL ONE (07:00)
[2020-09-03] MEDS ORDERED: ALBUTEROL FS 2.5 MG/3 ML VIAL.NEB CONTNEB ONE (07:00)
[2020-09-03] MEDS ORDERED: IPRATROPIUM NEB FS 0.5 MG/2.5 ML AMPUL.NEB NEB ONE (07:00)
[2020-09-03] MEDS ORDERED: ALBUTEROL FS 2.5 MG/3 ML VIAL.NEB ONE (07:11)
[2020-09-03] MEDS ORDERED: IPRATROPIUM NEB FS 0.5 MG/2.5 ML AMPUL.NEB ONE (07:11)
--- NOTE | 2020-09-03 07:15 | NUR ---
RT at bed side
--- NOTE | 2020-09-03 07:34 | NUR ---
REPORT GIVEN TO GELY RODRIGUEZ FOR [facility]
[2020-09-03] MEDS ORDERED: OMEP20CA15 PO (09:01)
--- NOTE | 2020-09-03 09:48 | NUR ---
Patient discharged to home in stable condition. Written and verbal after care instructions given. Patient verbalizes understanding of instruction. IV removed. Catheter intact and site benign. Pressure and 4x4 applied to site. No bleeding noted.
[2020-09-03 09:49] VITALS: BP 141/81
== END 2020-09-03 09:50 | disposition home or self-care (01) ==
LOC: ER 05:34
DX: I11.0 Hypertensive heart disease with heart failure (principal); I50.9 Heart failure, unspecified; Z20.828 Contact with and (suspected) exposure to other viral communicable diseases; J44.9 Chronic obstructive pulmonary disease, unspecified; Z99.81 Dependence on supplemental oxygen; F19.10 Other psychoactive substance abuse, uncomplicated; Z95.810 Presence of automatic (implantable) cardiac defibrillator; I25.10 Atherosclerotic heart disease of native coronary artery without angina pectoris; Z79.01 Long term (current) use of anticoagulants; Z79.899 Other long term (current) drug therapy; E11.9 Type 2 diabetes mellitus without complications; Z79.4 Long term (current) use of insulin; R00.0 Tachycardia, unspecified; R06.00 Dyspnea, unspecified; I44.7 Left bundle-branch block, unspecified
CPT/HCPCS: 36415; 71045; 80048; 80076; 83735; 83880; 84484; 85025; 87426; 93005 ×2; 94640; 96374; 99285; C9803; J1940; J7512

== ENCOUNTER 2021-03-06 20:55 | Inpatient (IN) | payer OTHER ==
[~2021-03-06] VITALS: Ht 177.8 cm; Wt 127.5 kg
[~2021-03-06 20:55] MED LIST changes: -ISOS30TA6 PO; +ISOS30TA86 PO; +LISI10TA29 PO; -LISI10TA5 PO; +OMEP20CA15 PO
--- NOTE | 2021-03-06 21:06 | NUR ---
HÉCTOR FROM HOME TO ER BED 7. AAOX4. NOT IN RESP DISTRESS. ON 02 BASELINE @ 2LPM VIA NC. BROUGHT IN FOR LEFT STERNAL CHEST PAIN NON RADIATING INTERMITENT 4/10 PRESSURE AND SHARP STARTED @ 1800. PT PLACED ON MONITOR. EKG BEING DONE AT BEDSIDE. MD WAS AT THE BEDSIDE FOR EVAL. ORDERS RECEIVED, NOTED AND CARRIED OUT. IV LINE ESTABLISHED ON THE R WRIST 18G, BLOOD DRAWN AND GIVEN TO PHLEB AT BEDSIDE.
[2021-03-06 21:21] LABS: HEMOGLOBIN 17.5 g/dL (13.5-17.5); LYMPHOCYTES # (AUTO) 1.6 K/uL (0.8-4.8)
[2021-03-06 21:24] LABS: BASOPHILS % (AUTO) 0.7 % (0.0-2.0); EOSINOPHILS % (AUTO) 2.1 % (0.0-6.0); HEMATOCRIT 54 % (39-51); LYMPHOCYTES % (AUTO) 25.2 % (20.0-44.0); MEAN CORPUSCULAR HGB CONC 32 g/dl (31.0-36.0); MEAN CORPUSCULAR VOLUME 83 fL (80-96); MONOCYTES # (AUTO) 0.6 K/uL (0.1-1.30); MONOCYTES % (AUTO) 9.2 % (2.0-12.0); NEUTROPHILS % (AUTO) 62.8 % (43.0-81.0); PLATELET COUNT (AUTO) 204 K/uL (150-450); RED BLOOD CELL COUNT(AUTO) 6.55 MIL/uL (4.5-6.0); WHITE BLOOD COUNT (AUTO) 6.3 K/uL (4.3-11.0)
[2021-03-06 21:29] LABS: CALCIUM, SERUM 8.5 mg/dL (8.5-10.1); POTASSIUM 3.4 mmol/L (3.5-5.1)
[2021-03-06 21:41] LABS: BILIRUBIN,DIRECT 0.4 mg/dL (0.0-0.2); BILIRUBIN,TOTAL 1.1 mg/dL (0.2-1.0); TOTAL PROTEIN, SERUM 6.9 g/dL (6.4-8.2)
--- NOTE | 2021-03-06 23:00 | NUR ---
COVID SWAB DONE AND SENT TO LAB
[2021-03-06] MEDS ORDERED: ACETAMINOPHEN 325 MG TABLET PO PRN (23:30)
[2021-03-06] MEDS ORDERED: ZOLPIDEM TARTRATE 5 MG TABLET PO PRN (23:30)
[2021-03-06] MEDS ORDERED: MAGNESIUM HYDROXIDE 30 ML UDC PO PRN (23:30)
[2021-03-06] MEDS ORDERED: ENOXAPARIN SODIUM 40 MG/0.4 ML DISP.SYRIN SQ SCH (23:30)
[2021-03-06] MEDS ORDERED: MAG HYDROX/AL HYDROX/SIMETH 30 ML UDC PO PRN (23:30)
[2021-03-06] MEDS ORDERED: ONDANSETRON HCL/PF 4 MG/2 ML VIAL IVP PRN (23:30)
[2021-03-06] MEDS ORDERED: Z GUARD REMEDY 2 OZ OINT TP PRN (23:30)
[2021-03-07] VITALS (9 sets, daily range): BP systolic 78–130; BP diastolic 46–93
--- NOTE | 2021-03-07 00:03 | NUR ---
TELE ADMISSION NOTE Patient is A&Ox4. VSS. Pupils equal and reactive to light Addendum: 03/07/21 at 0706 by VLAD CALVO RN error
--- NOTE | 2021-03-07 00:07 | NUR ---
REPORT GIVEN TO JACKY HONG FOR G[facility]
--- NOTE | 2021-03-07 00:19 | NUR ---
PT TRANSFERED PER ACLS PROTOCOL
--- NOTE | 2021-03-07 00:30 | NUR ---
TELE ADMISSION NOTE Patient is A&Ox4. VSS. Pupils equal and reactive to light. Can move all extremities evenly though reports minimal weakness in BLE. Uses walker at home. Denies SOB but has mild dry cough and is sensitive to temperature. Heart rate and rhythm regular. Urine is clear and yellow. Lung sounds diminished to bases. Bowel sounds active. Cap refill to all fingers and toes <3 seconds. only skin issue is thick skin to little. feet. Oriented to unit. No signs of distress.
[2021-03-07] MEDS ORDERED: FUROSEMIDE 40 MG/4 ML VIAL IV ONE (05:00)
--- NOTE | 2021-03-07 05:02 | NUR ---
Patient with continuous dry cough, very persistent, is not able to sleep or lie flat. States it feels like fluid in his chest. MD made aware with new order for Lasix 40mg Iv once NOW. and Robitussin DM q4h PRN for cough. O2 between 97-100% on 2L via NC. B/P 127/93.
[2021-03-07] MEDS ORDERED: GUAIFENESIN/D-METHORPHAN HB 5 ML UDC PO PRN (05:30)
[2021-03-07] MEDS ORDERED: POTASSIUM CHLORIDE 20 MEQ TAB.PRT.SR PO ONE (07:00)
[2021-03-07 07:03] LABS: BASOPHILS # (AUTO) 0.1 K/uL (0.0-0.2); BASOPHILS % (AUTO) 1.1 % (0.0-2.0); HEMATOCRIT 54 % (39-51); HEMOGLOBIN 17.4 g/dL (13.5-17.5); LYMPHOCYTES # (AUTO) 1.6 K/uL (0.8-4.8); LYMPHOCYTES % (AUTO) 25.8 % (20.0-44.0); MEAN CORPUSCULAR HGB CONC 33 g/dl (31.0-36.0); MEAN CORPUSCULAR VOLUME 84 fL (80-96); MONOCYTES # (AUTO) 0.5 K/uL (0.1-1.30); MONOCYTES % (AUTO) 8.9 % (2.0-12.0); NEUTROPHILS # (AUTO) 3.9 K/uL (1.8-8.9); NEUTROPHILS % (AUTO) 62.2 % (43.0-81.0); PLATELET COUNT (AUTO) 190 K/uL (150-450); RED BLOOD CELL COUNT(AUTO) 6.38 MIL/uL (4.5-6.0); WHITE BLOOD COUNT (AUTO) 6.2 K/uL (4.3-11.0)
--- NOTE | 2021-03-07 07:03 | NUR ---
MS RN CLOSING NOTES Patient coughing has ceased, verbalizes feeling much better as Lasix has kicked in. A&Ox4. VSS through shift. No signs of distress at this time. Denies SOB or pain at this time.
[2021-03-07 07:23] LABS: THYROID STIMULATING HORMONE 1.152 uIU/mL (0.358-3.74)
--- NOTE | 2021-03-07 07:24 | NUR ---
CHRISTMAS TREE FARMER NOTES PATIENT RECEIVED IN BED, RESTING COMFORTABLY. ALERT AND ORIENTED X 4. ON NASAL CANNULA 2 LITERS, WITH NO RESPIRATORY DISTRESS NOTED, WITH EVEN NON-LABORED BREATHING. ON AIRFIELD MANAGER, SINUS 87. SKIN WARM AND DRY TO TOUCH, IV ACCESS INTACT AND PATENT. PATIENT DENIES ANY PAIN OR DISCOMFORT AT THIS TIME. SAFETY PRECAUTIONS IMPLEMENTED WITH BED LOCKED, BILATERAL SIDE RAILS UP, BED IN THE LOWEST POSITION, AND CALL LIGHT WITHIN EASY REACH. WILL CONTINUE TO MONITOR PATIENT.
[2021-03-07] MEDS ORDERED: DEXTROSE 50%-WATER 50 ML DISP.SYRIN IV PRN (07:30)
[2021-03-07] MEDS ORDERED: *INSULIN REGULAR(HUMULIN R)HUM 100 UNIT/ML VIAL SQ PRN (07:30)
[2021-03-07] MEDS ORDERED: BECLOMETHASONE DIPROPIONATE INH PRN (07:30)
[2021-03-07 07:33] LABS: CALCIUM, SERUM 8.6 mg/dL (8.5-10.1); MAGNESIUM 1.9 mg/dL (1.8-2.4); PHOSPHORUS 4.1 mg/dL (2.5-4.9); POTASSIUM 3.1 mmol/L (3.5-5.1)
[2021-03-07] MEDS ORDERED: IPRATROPIUM NEB FS 0.5 MG/2.5 ML AMPUL.NEB IH PRN (08:00)
[2021-03-07] MEDS ORDERED: ALBUTEROL FS 2.5 MG/3 ML VIAL.NEB IH PRN (08:00)
[2021-03-07] MEDS ORDERED: ALBUTEROL FS 2.5 MG/0.5 ML VIAL.NEB IH PRN (08:00)
[2021-03-07] MEDS: INSULIN REGULAR, HUMAN 100 UNIT/ML 3 ML VIAL SQ PRN ×2 (08:11→12:10)
[2021-03-07] MEDS: ASPIRIN EC 81 MG TABLET.DR PO SCH (08:12)
[2021-03-07] MEDS: SPIRONOLACTONE 25 MG TABLET PO SCH (08:12)
[2021-03-07] MEDS: FUROSEMIDE 40 MG/4 ML VIAL IV SCH (08:12)
[2021-03-07] MEDS: APIXABAN 5 MG TABLET PO SCH ×2 (08:14→16:40)
[2021-03-07] MEDS: BLOOD SUGAR DIAGNOSTIC 1 EACH STRIP VI SCH ×4 (08:14→21:37)
[2021-03-07] MEDS: ISOSORBIDE MONONITRATE (30MG) 30 MG TAB.SR.24H PO SCH (08:14)
[2021-03-07] MEDS: PANTOPRAZOLE 40 MG TABLET.DR PO SCH (08:14)
[2021-03-07] MEDS: CARVEDILOL 12.5 MG TABLET PO SCH ×2 (08:15→16:40)
[2021-03-07] MEDS: LISINOPRIL (10MG) 10 MG TABLET PO SCH (08:15)
[2021-03-07] MEDS: LOSARTAN POTASSIUM 25 MG TABLET PO SCH (08:15)
[2021-03-07] MEDS: POTASSIUM CHLORIDE 20 MEQ TAB.PRT.SR PO SCH ×3 (09:45→12:03)
[2021-03-07] MEDS ORDERED: DIGOXIN 0.125 MG TABLET PO SCH (13:00)
[2021-03-07] MEDS ORDERED: IOHEXOL-350 100 ML VIAL IV ONE (14:48)
[2021-03-07] MEDS ORDERED: CT SWABBABLE VALVE TRANS SET 1 EA INFUS.SET MC ONE (14:48)
[2021-03-07] MEDS ORDERED: IV NS 0.9% 250 ML IV ONE (14:48)
[2021-03-07] MEDS ORDERED: NITROGLYCERIN 0.4 MG/TAB BOTTLE SL PRN (15:00)
[2021-03-07] MEDS ORDERED: METOPROLOL TARTRATE INJ 5 MG/5 ML AMPUL ONE (15:16)
--- NOTE | 2021-03-07 16:00 | NUR ---
RN NOTES PATIENT LEFT UNIT FOR CT ANGIO OF HEART.
[2021-03-07] MEDS: METOPROLOL TARTRATE INJ 5 MG/5 ML AMPUL IVP PRN ×2 (16:06→16:08)
--- NOTE | 2021-03-07 16:10 | NUR ---
DURING CT ANGIO, METOPROLOL 10 MG GIVEN DURING CTA, 1 NITRO SL GIVEN DURING CTA. PT'S BP DROPPED TO 88/55, NO MORE METOPROLOL GIVEN D/T LOW BP. CTA COMPLETED, FOLLOW UP BP IS 100/60, HR 80. PT IS CALM, DENIES BEING LIGHT HEADED OR DIZZY. PT WILL BE RETURNED TO ROOM.
--- NOTE | 2021-03-07 18:00 | NUR ---
RN NOTES PATIENT BP WAS LOW DUE TO S/P CT OF ANGIO OF HEART. KEPT MONITORING BP. MANUAL BP DONE 84/50, PATIENT IS ASYMPTOMATIC, DENIES ANY DISCOMFORT. WILL CONTINUE TO MONITOR PATIENT.
--- NOTE | 2021-03-07 18:15 | NUR ---
RN NOTES PATIENT IN BED, RESTING COMFORTABLY. ALERT AND ORIENTED X 4. ON NASAL CANNULA 2 LITERS, WITH NO RESPIRATORY DISTRESS NOTED, WITH EVEN NON-LABORED BREATHING. MET ALL OF PATIENT'S NEEDS. SKIN KEPT CLEAN, WARM AND DRY TO TOUCH, IV ACCESS INTACT AND PATENT SALINE LOCK. PATIENT DENIES ANY PAIN OR DISCOMFORT AT THIS TIME. SAFETY PRECAUTIONS IMPLEMENTED WITH BED LOCKED, BILATERAL SIDE RAILS UP, BED IN THE LOWEST POSITION, AND CALL LIGHT WITHIN EASY REACH.WILL ENDORSE PLAN OF CARE TO UPCOMING RN.
--- NOTE | 2021-03-07 20:41 | NUR ---
COMPLAINED OF LOWER BACK PAIN LEVEL 10/10, REFUSED THE TYLENOL, INFORMED DR CONTRERAS, WAITING FOR THE RESPONSE.
[2021-03-07] MEDS ORDERED: ENOXAPARIN SODIUM 40 MG/0.4 ML DISP.SYRIN SQ SCH (21:00)
--- NOTE | 2021-03-07 21:45 | NUR ---
LEFT WRIST IV REMOVED, PER PATIENT'S REQUEST, TIP IS INTACT, NO BLEEDING NOTED.
[2021-03-07] MEDS ORDERED: INSULIN GLARGINE, 100 UNIT/ML CARTRIDGE SQ SCH (22:00)
[2021-03-07] MEDS ORDERED: ATORVASTATIN 40 MG TABLET PO SCH (22:00)
[2021-03-07] MEDS: HYDROCODONE/APAP 5/325MG TABLET PO PRN (22:27)
[2021-03-08] MEDS: HYDROCODONE/APAP 5/325MG TABLET PO PRN (05:00)
[2021-03-08] MEDS: BLOOD SUGAR DIAGNOSTIC 1 EACH STRIP VI SCH ×2 (06:41→11:54)
--- NOTE | 2021-03-08 06:41 | NUR ---
BLOOD [id number] , NO INSULIN NEEDED.
[2021-03-08 07:08] LABS: BASOPHILS # (AUTO) 0.1 K/uL (0.0-0.2); BASOPHILS % (AUTO) 1.3 % (0.0-2.0); EOSINOPHILS % (AUTO) 2.7 % (0.0-6.0); HEMATOCRIT 50 % (39-51); HEMOGLOBIN 16.3 g/dL (13.5-17.5); LYMPHOCYTES # (AUTO) 1.4 K/uL (0.8-4.8); MEAN CORPUSCULAR HGB CONC 33 g/dl (31.0-36.0); MEAN CORPUSCULAR VOLUME 83 fL (80-96); MONOCYTES # (AUTO) 0.6 K/uL (0.1-1.30); MONOCYTES % (AUTO) 10.2 % (2.0-12.0); NEUTROPHILS # (AUTO) 3.5 K/uL (1.8-8.9); NEUTROPHILS % (AUTO) 61.8 % (43.0-81.0); PLATELET COUNT (AUTO) 201 K/uL (150-450); RED BLOOD CELL COUNT(AUTO) 6.01 MIL/uL (4.5-6.0); WHITE BLOOD COUNT (AUTO) 5.7 K/uL (4.3-11.0)
--- NOTE | 2021-03-08 07:19 | NUR ---
MSRN OPENING NOTES PATIENT IN BED, RESTING COMFORTABLY. ALERT AND ORIENTED X 4. ON NC 2 LITERS, WITH NO RESPIRATORY DISTRESS NOTED, WITH EVEN NON-LABORED BREATHING. SKIN CLEAN, WARM AND DRY TO TOUCH, IV ACCESS INTACT AND PATENT SALINE LOCK. PATIENT DENIES ANY PAIN OR DISCOMFORT AT THIS TIME. SAFETY PRECAUTIONS IMPLEMENTED WITH BED LOCKED, BILATERAL SIDE RAILS UP, BED IN THE LOWEST POSITION, AND CALL LIGHT WITHIN EASY REACH AND ANSWERED PROMPTLY
[2021-03-08 07:51] LABS: CALCIUM, SERUM 8.1 mg/dL (8.5-10.1); MAGNESIUM 1.8 mg/dL (1.8-2.4); PHOSPHORUS 4.3 mg/dL (2.5-4.9)
[2021-03-08 08:00] VITALS: BP 120/76
[2021-03-08] MEDS: ASPIRIN EC 81 MG TABLET.DR PO SCH (08:30)
[2021-03-08] MEDS: CARVEDILOL 12.5 MG TABLET PO SCH (08:30)
[2021-03-08] MEDS: FUROSEMIDE 40 MG/4 ML VIAL IV SCH (08:30)
[2021-03-08] MEDS: LISINOPRIL (10MG) 10 MG TABLET PO SCH (08:31)
[2021-03-08] MEDS: PANTOPRAZOLE 40 MG TABLET.DR PO SCH (08:31)
[2021-03-08] MEDS: ISOSORBIDE MONONITRATE (30MG) 30 MG TAB.SR.24H PO SCH (08:31)
[2021-03-08 08:32] VITALS: BP 120/76
[2021-03-08] MEDS: LOSARTAN POTASSIUM 25 MG TABLET PO SCH (08:32)
[2021-03-08] MEDS: APIXABAN 5 MG TABLET PO SCH (08:32)
[2021-03-08] MEDS: SPIRONOLACTONE 25 MG TABLET PO SCH (08:34)
[2021-03-08] MEDS ORDERED: FUROSEMIDE 40 MG TABLET PO SCH (11:00)
[2021-03-08] MEDS: INSULIN REGULAR, HUMAN 100 UNIT/ML 3 ML VIAL SQ PRN (11:53)
--- NOTE | 2021-03-08 14:11 | NUR ---
PT DISCHARGED AND LEFT FACILITY AT 1400, ACCIMPANIED DOWNSTAIRS BY ENTRY LEVEL RECEPTIONIST TO UBER AND SAFELY HANDED OFF, IV SAFELY REMOVED AND ASLL BELONGING ACCOUNTED FOR
[2021-03-08] MEDS ORDERED: BUDESONIDE RESPULE INH 0.25 MG/2 ML AMPUL.NEB NEB SCH (19:30)
== END 2021-03-08 14:00 | disposition home or self-care (01) | DRG 198 ==
LOC: ER 20:56 → TELE 03-07 → MED 03-07 10:16
PROVIDERS: ADMIT Student in an Organized Health Care Education/Training Program; ATTEND Nurse Practitioner Acute Care
DX: I25.10 Atherosclerotic heart disease of native coronary artery without angina pectoris (principal); I50.43 Acute on chronic combined systolic (congestive) and diastolic (congestive) heart failure; E44.0 Moderate protein-calorie malnutrition; I11.0 Hypertensive heart disease with heart failure; Z79.01 Long term (current) use of anticoagulants; E11.9 Type 2 diabetes mellitus without complications; E87.6 Hypokalemia; Z20.822 Contact with and (suspected) exposure to COVID-19; Z95.810 Presence of automatic (implantable) cardiac defibrillator; Z90.49 Acquired absence of other specified parts of digestive tract; Z87.891 Personal history of nicotine dependence; Z83.3 Family history of diabetes mellitus; J44.9 Chronic obstructive pulmonary disease, unspecified; I25.2 Old myocardial infarction; Z87.11 Personal history of peptic ulcer disease; Z79.51 Long term (current) use of inhaled steroids; Z79.4 Long term (current) use of insulin; Z79.82 Long term (current) use of aspirin; Z79.899 Other long term (current) drug therapy
CPT/HCPCS: 36415; 71045-TC; 75574; 80048-TC; 80061-TC; 80076-TC; 82962-TC; 83735-TC; 83880; 84100-TC; 84443-TC; 84484-TC; 85025-TC; 87081-TC; 93307-TC; C9803; G0378; J1650; J1815; J1940; J3490; J7050; Q9967

== ENCOUNTER 2021-08-13 20:58 | Inpatient (IN) | payer OTHER ==
[~2021-08-13] VITALS: Ht 177.8 cm; Wt 128.8 kg
[2021-08-13] MEDS ORDERED: ALBUTEROL FS 2.5 MG/3 ML VIAL.NEB ONE (21:09)
[2021-08-13] MEDS ORDERED: IPRATROPIUM NEB FS 0.5 MG/2.5 ML AMPUL.NEB ONE (21:09)
--- NOTE | 2021-08-13 21:10 | NUR ---
PATIENT BIBRA C/O SOB SINCE YESTERDAY. PATIENT A/O X 4, RR LABORED, PATIENT CONNECTED TO SHOW HOST/HOSTESS AND POX.
[2021-08-13] MEDS ORDERED: methylPREDNISolone SOD SUCC 125 MG/2ML VIAL ONE (21:25)
[2021-08-13] MEDS ORDERED: ALBUTEROL FS 2.5 MG/3 ML VIAL.NEB NEB ONE (21:30)
[2021-08-13] MEDS ORDERED: methylPREDNISolone SOD SUCC 125 MG/2ML VIAL IV ONE (21:30)
[2021-08-13] MEDS ORDERED: IPRATROPIUM NEB FS 0.5 MG/2.5 ML AMPUL.NEB NEB ONE (21:30)
[2021-08-13] MEDS ORDERED: ATORVASTATIN 40 MG TABLET PO SCH (22:00)
[2021-08-13] MEDS ORDERED: BECLOMETHASONE DIPROPIONATE INH PRN (22:00)
[2021-08-13] MEDS ORDERED: LABETALOL 20 MG/4 ML VIAL IV PRN (22:00)
[2021-08-13] MEDS ORDERED: MORPHINE SULFATE INJ 2 MG/ML DISP.SYRIN IV PRN (22:00)
[2021-08-13] MEDS ORDERED: ONDANSETRON HCL/PF 4 MG/2 ML VIAL IVP PRN (22:00)
[2021-08-13] MEDS ORDERED: DEXTROSE 50%-WATER 50 ML DISP.SYRIN IV PRN (22:00)
[2021-08-13] MEDS ORDERED: INSULIN GLARGINE, 100 UNIT/ML CARTRIDGE SQ SCH (22:00)
[2021-08-13] MEDS ORDERED: ALBUTEROL SULFATE INH PRN (22:00)
[2021-08-13] MEDS: BLOOD SUGAR DIAGNOSTIC 1 EACH STRIP IN SCH (22:00)
[2021-08-13] MEDS ORDERED: ACETAMINOPHEN 325 MG TABLET PO PRN (22:00)
[2021-08-13 22:07] LABS: BASOPHILS # (AUTO) 0.1 K/uL (0.0-0.2); BASOPHILS % (AUTO) 1.7 % (0.0-2.0); EOSINOPHILS % (AUTO) 2.1 % (0.0-6.0); HEMATOCRIT 55 % (39-51); HEMOGLOBIN 17.4 g/dL (13.5-17.5); LYMPHOCYTES # (AUTO) 1.9 K/uL (0.8-4.8); MEAN CORPUSCULAR HGB CONC 32 g/dl (31.0-36.0); MEAN CORPUSCULAR VOLUME 84 fL (80-96); MONOCYTES # (AUTO) 0.7 K/uL (0.1-1.30); MONOCYTES % (AUTO) 8.9 % (2.0-12.0); NEUTROPHILS # (AUTO) 5.1 K/uL (1.8-8.9); NEUTROPHILS % (AUTO) 63.3 % (43.0-81.0); PLATELET COUNT (AUTO) 179 K/uL (150-450); RED BLOOD CELL COUNT(AUTO) 6.51 MIL/uL (4.5-6.0); WHITE BLOOD COUNT (AUTO) 8.1 K/uL (4.3-11.0)
[2021-08-13 22:21] LABS: CARBON DIOXIDE 26 mmol/L (21-32); CHLORIDE 101 mmol/L (98-107); CREATININE 1.3 mg/dL (0.6-1.3); GLUCOSE 137 mg/dL (74-106); SODIUM SERUM 139 mmol/L (136-145); UREA NITROGEN, BLOOD 26 mg/dL (7-18)
--- NOTE | 2021-08-13 22:22 | NUR ---
PRELIMINARY ECHO SHOWED EF 10-15%~. ADVISED RN OF INITIAL RESULTS.
[2021-08-13] MEDS ORDERED: FUROSEMIDE 40 MG/4 ML VIAL IV ONE (22:30)
[2021-08-13] MEDS ORDERED: NITROGLYCERIN PACKET 1 GM PACKET TD ONE (22:30)
[2021-08-13 22:37] LABS: ALANINE AMINOTRANSFERASE 18 U/L (12-78); ALBUMIN 3.4 g/dL (3.4-5.0); ALKALINE PHOSPHATASE 78 U/L (46-116); ASPARTATE AMINOTRANSFERASE 27 U/L (15-37); BILIRUBIN,DIRECT 0.2 mg/dL (0.0-0.2); BILIRUBIN,TOTAL 0.8 mg/dL (0.2-1.0); TOTAL PROTEIN, SERUM 7.2 g/dL (6.4-8.2)
--- NOTE | 2021-08-13 22:39 | NUR ---
LACTIC 2.2
[2021-08-13] MEDS ORDERED: FUROSEMIDE 20 MG/2 ML VIAL ONE (22:53)
[2021-08-13] MEDS ORDERED: FUROSEMIDE 40 MG/4 ML VIAL ONE (22:53)
--- NOTE | 2021-08-14 01:19 | NUR ---
REPORT GIVEN TO CLIFTON HONG
--- NOTE | 2021-08-14 01:43 | NUR ---
PATIENT TRANSFERRED UNDER ACLS
[2021-08-14 01:57] VITALS: BP 134/89
[2021-08-14] MEDS ORDERED: ALBUTEROL FS 2.5 MG/3 ML VIAL.NEB NEB PRN (02:00)
[2021-08-14] MEDS ORDERED: IPRATROPIUM NEB FS 0.5 MG/2.5 ML AMPUL.NEB NEB PRN (02:00)
--- NOTE | 2021-08-14 02:11 | NUR ---
ADMISSION 61 y/o male A/O x4 admitted for SOB. Skin intact, no pressure injury noted. Leads applied for Tele monitor. Lipitor, accu- check, lantus insulin medication not given d/t schedule due time passed when arrived to unit. [place] patient to room, unit, staff. Belongings checked. Own medication send to pharmacy for safe keeping. Patient requesting to eat, notified MD. Orders place.
[2021-08-14] MEDS: FUROSEMIDE 40 MG/4 ML VIAL IV SCH ×3 (05:40→12:34)
[2021-08-14 05:47] VITALS: BP 112/88
--- NOTE | 2021-08-14 06:48 | NUR ---
END OF SHIFT REPORT Patient is A/O x4. Removed NC by himself, denies sob. Oxygen sat 94% RA. Duplex BLE pending result. Patient also removed leads, unable to read rhythm. Education given, verbalized understanding. Place leads back on. Will endorse to oncoming RN.
--- NOTE | 2021-08-14 07:15 | NUR ---
RN NOTE PATIENT AWAKE, ALERT AND ORIENTED X4 ABLE TO VERBALIZE NEEDS, ON TELE MONITOR HR OF 99 SINUS RHYTHM, DIAGNOSIS OF CHF, SAFETY MEASURES OBSERVED, CALL LIGHT WITHIN REACH WILL CONTINUE TO MONITOR.
[2021-08-14] MEDS ORDERED: PANTOPRAZOLE 40 MG TABLET.DR PO SCH (07:30)
[2021-08-14 07:45] LABS: BASOPHILS % (AUTO) 0.2 % (0.0-2.0); EOSINOPHILS % (AUTO) 0.1 % (0.0-6.0); HEMATOCRIT 51 % (39-51); HEMOGLOBIN 16.3 g/dL (13.5-17.5); LYMPHOCYTES # (AUTO) 0.5 K/uL (0.8-4.8); LYMPHOCYTES % (AUTO) 6.1 % (20.0-44.0); MEAN CORPUSCULAR HGB CONC 32 g/dl (31.0-36.0); MEAN CORPUSCULAR VOLUME 84 fL (80-96); MONOCYTES # (AUTO) 0.1 K/uL (0.1-1.30); MONOCYTES % (AUTO) 1.2 % (2.0-12.0); NEUTROPHILS # (AUTO) 7.3 K/uL (1.8-8.9); NEUTROPHILS % (AUTO) 92.4 % (43.0-81.0); PLATELET COUNT (AUTO) 166 K/uL (150-450); RED BLOOD CELL COUNT(AUTO) 6.05 MIL/uL (4.5-6.0); WHITE BLOOD COUNT (AUTO) 7.9 K/uL (4.3-11.0)
[2021-08-14 08:00] VITALS: BP 131/84
--- NOTE | 2021-08-14 08:03 | NUR ---
RN NOTE BS OF 425 PATIENT ALERT AND ORIENTED X4. REFUSED RECHECK.
[2021-08-14] MEDS: BLOOD SUGAR DIAGNOSTIC 1 EACH STRIP IN SCH ×2 (08:04→12:30)
[2021-08-14] MEDS: INSULIN REGULAR, HUMAN 100 UNIT/ML 3 ML VIAL SQ PRN ×2 (08:07→12:34)
--- NOTE | 2021-08-14 08:35 | NUR ---
RN NOTE DR. STEPHEN MARTIN NOTIFIED BS OF 425, PER MD GIVE INSULIN PER SLIDING SCALE.
[2021-08-14] MEDS ORDERED: APIXABAN 5 MG TABLET PO SCH (09:00)
[2021-08-14] MEDS ORDERED: VALSARTAN 80 MG TABLET PO SCH (09:00)
[2021-08-14] MEDS ORDERED: LOSARTAN POTASSIUM 25 MG TABLET PO SCH (09:00)
[2021-08-14] MEDS ORDERED: ISOSORBIDE MONONITRATE (30MG) 30 MG TAB.SR.24H PO SCH (09:00)
[2021-08-14] MEDS ORDERED: SPIRONOLACTONE 25 MG TABLET PO SCH (09:00)
[2021-08-14] MEDS ORDERED: ASPIRIN EC 81 MG TABLET.DR PO SCH (09:00)
[2021-08-14] MEDS ORDERED: BUDESONIDE RESPULE INH 0.5 MG/2 ML AMPUL.NEB NEB SCH (09:00)
[2021-08-14] MEDS ORDERED: OMEPRAZOLE 20 MG CAPSULE.DR PO SCH (09:00)
[2021-08-14] MEDS ORDERED: POTASSIUM CHLORIDE 20 MEQ TAB.PRT.SR PO SCH (09:00)
[2021-08-14] MEDS ORDERED: CARVEDILOL 12.5 MG TABLET PO SCH (09:00)
[2021-08-14] MEDS ORDERED: INSULIN GLARGINE, 100 UNIT/ML CARTRIDGE SQ SCH (09:30)
[2021-08-14 09:36] VITALS: BP 131/84
[2021-08-14 10:04] LABS: ALBUMIN 3.1 g/dL (3.4-5.0); CALCIUM, SERUM 8.6 mg/dL (8.5-10.1); CREATININE 1.7 mg/dL (0.6-1.3); MAGNESIUM 1.9 mg/dL (1.8-2.4); PHOSPHORUS 4.5 mg/dL (2.5-4.9); POTASSIUM 3.5 mmol/L (3.5-5.1); TOTAL PROTEIN, SERUM 6.7 g/dL (6.4-8.2)
[2021-08-14] MEDS ORDERED: DIGOXIN 0.125 MG TABLET PO SCH (13:00)
--- NOTE | 2021-08-14 13:33 | NUR ---
RN NOTE PATIENT DISCHARGE AGAINST MEDICAL ADVICE, STEPHEN CHILD NOTIFIED, OK TO GO AMA.
== END 2021-08-14 14:29 | disposition left against medical advice (07) | DRG 194 ==
LOC: ER 21:02 → TELE1 08-14 01:28 → MEDSG1 08-14 09:04
PROVIDERS: ADMIT Internal Medicine; ATTEND Nurse Practitioner Acute Care
DX: I11.0 Hypertensive heart disease with heart failure (principal); E87.2 Acidosis; I21.A1 Myocardial infarction type 2; I42.9 Cardiomyopathy, unspecified; Z79.01 Long term (current) use of anticoagulants; I50.43 Acute on chronic combined systolic (congestive) and diastolic (congestive) heart failure; Z86.718 Personal history of other venous thrombosis and embolism; E11.9 Type 2 diabetes mellitus without complications; E66.01 Morbid (severe) obesity due to excess calories; F17.200 Nicotine dependence, unspecified, uncomplicated; R09.02 Hypoxemia; Z79.4 Long term (current) use of insulin; J44.9 Chronic obstructive pulmonary disease, unspecified; Z68.41 Body mass index [BMI] 40.0-44.9, adult; Z91.19 Patient's noncompliance with other medical treatment and regimen; F12.10 Cannabis abuse, uncomplicated; Z95.810 Presence of automatic (implantable) cardiac defibrillator; Z20.822 Contact with and (suspected) exposure to COVID-19
CPT/HCPCS: 36415; 71045-TC; 80048-TC; 80053-TC; 80076-TC; 83605-TC; 83735-TC; 83880; 84100-TC; 84484-TC; 85025-TC; 87040-TC; 87081-TC; 93307-TC; 93970-TC; C9803; G0378; J1815; J1940; J2930; U0003

== ENCOUNTER 2022-02-10 22:55 | Inpatient (IN) | payer OTHER ==
[~2022-02-10] VITALS: Ht 177.8 cm; Wt 128.8 kg
--- NOTE | 2022-02-10 23:05 | NUR ---
BIBRA39 FROM HOME C/O CP & SOB X2 HOURS 1 SPRAY NITRO AND 324 ASPIRIN EDUCATIONAL PROGRAMMING DIRECTOR. HYPOTENSIVE 87/57. PATIENT ALERT AND ORIENTED X3. AMBULATORY ON NASAL CANULA 2L SATTING AT 96%. IN BED 07 AWAITING MD MOTA ON MONITOR AND POX.
--- NOTE | 2022-02-10 23:08 | NUR ---
URINE COLLECTED AND SENT TO LAB
--- NOTE | 2022-02-10 23:12 | NUR ---
REMOTE SENSING SPECIALIST AT PT'S BEDSIDE. BLOOD AND COVID ANTIGEN SWAB COLLECTED AND SENT TO LAB
--- NOTE | 2022-02-10 23:14 | NUR ---
MOVE SHEET SUBMITTED
[2022-02-10] MEDS ORDERED: IV NS 0.9% 500 ML BAG IV ONE (23:30)
--- NOTE | 2022-02-10 23:30 | NUR ---
IV LINE ESTABLISHED, RHAND 20G
[2022-02-10 23:41] LABS: BASOPHILS # (AUTO) 0.1 K/uL (0.0-0.2); BASOPHILS % (AUTO) 0.9 % (0.0-2.0); EOSINOPHILS % (AUTO) 1.9 % (0.0-6.0); HEMATOCRIT 54 % (39-51); HEMOGLOBIN 17.9 g/dL (13.5-17.5); LYMPHOCYTES # (AUTO) 1.4 K/uL (0.8-4.8); LYMPHOCYTES % (AUTO) 24.4 % (20.0-44.0); MEAN CORPUSCULAR HGB CONC 33 g/dl (31.0-36.0); MEAN CORPUSCULAR VOLUME 82 fL (80-96); MONOCYTES # (AUTO) 0.6 K/uL (0.1-1.30); MONOCYTES % (AUTO) 10.4 % (2.0-12.0); NEUTROPHILS # (AUTO) 3.6 K/uL (1.8-8.9); NEUTROPHILS % (AUTO) 62.4 % (43.0-81.0); PLATELET COUNT (AUTO) 155 K/uL (150-450); RED BLOOD CELL COUNT(AUTO) 6.57 MIL/uL (4.5-6.0); WHITE BLOOD COUNT (AUTO) 5.7 K/uL (4.3-11.0)
[2022-02-10 23:55] LABS: ALANINE AMINOTRANSFERASE 11 U/L (12-78); ALBUMIN 3.2 g/dL (3.4-5.0); ALKALINE PHOSPHATASE 84 U/L (46-116); ASPARTATE AMINOTRANSFERASE 17 U/L (15-37); BILIRUBIN,DIRECT 0.5 mg/dL (0.0-0.2); BILIRUBIN,TOTAL 2.2 mg/dL (0.2-1.0); CARBON DIOXIDE 26 mmol/L (21-32); CHLORIDE 104 mmol/L (98-107); CREATININE 1.4 mg/dL (0.6-1.3); GLUCOSE 143 mg/dL (74-106); POTASSIUM 3.6 mmol/L (3.5-5.1); SODIUM SERUM 137 mmol/L (136-145); UREA NITROGEN, BLOOD 16 mg/dL (7-18)
--- NOTE | 2022-02-10 23:57 | NUR ---
RT AT BEDSIDE
[2022-02-11 00:08] LABS: CALCIUM, SERUM 8.8 mg/dL (8.5-10.1)
--- NOTE | 2022-02-11 00:15 | NUR ---
RT NOTE LATE ENTRY Pt rec'd on 3lnc. pt diaphoretic and tachypneic. Within few minutes of pt being placed on bipap, pt taken off mask and refuses to wear bipap. After educating pt on the risk of not being on bipap, pt still refuses bipap. pt placed back on 3lnc per pt request. State Editor and ordering MD aware. Addendum: 02/11/22 at 0114 by DAMIAN MCDANIELS RT Amended: Links added.
--- NOTE | 2022-02-11 00:15 | NUR ---
EPIC PAGED NURSERY ATTENDANT JOSHUA COLON
--- NOTE | 2022-02-11 00:25 | NUR ---
DR. MENDENHALL ON PHONE CALL WITH DR. BORREGO ON-CALL HOSPITALIST
--- NOTE | 2022-02-11 00:25 | NUR ---
PT REFUSES BIPAP AND DOES NOT WISH TO BE INTUBATED. PT REQUEST HIGH FLOW FOR 2 HOURS. RISK AND BENEFITS EXPLAINED. AWARE.
[2022-02-11] MEDS ORDERED: ALBUTEROL FS 2.5 MG/0.5 ML VIAL.NEB NEB PRN (00:30)
[2022-02-11] MEDS ORDERED: DEXTROSE 50%-WATER 50 ML DISP.SYRIN IV PRN (00:30)
[2022-02-11] MEDS ORDERED: hydrALAZINE HCL IV 20 MG VIAL IV PRN (00:30)
[2022-02-11] MEDS ORDERED: MIDODRINE HCL (5MG) 5 MG TABLET PO PRN (00:30)
[2022-02-11] MEDS ORDERED: ACETAMINOPHEN 325 MG TABLET PO PRN (00:30)
[2022-02-11] MEDS ORDERED: ONDANSETRON HCL/PF 4 MG/2 ML VIAL IVP PRN (00:30)
--- NOTE | 2022-02-11 00:45 | NUR ---
REPORT GIVEN TO EHSAN HONG FOR GASTON
--- NOTE | 2022-02-11 01:04 | NUR ---
PT TRANSFERRING TO [facility] 110 VIA ACLS PROTOCOL. VSS ON O2 N/C 3LPM. ALL BELONGINGS WITH PT.
--- NOTE | 2022-02-11 01:20 | NUR ---
RN OPENING NOTE RECEIVED PT FROM GELY TENA FROM ER, PT CAME IN VIA GURLUL. ON 02 VIA MI AT 3LPM. PT IS A/O X 4, ABLE TO MAKE HIS NEEDS KNOWN. TELE MONITOR SHOWS SR WITH HR IN THE 90s. O2 SAT IS AT 97%. PT HAS SOB, KEPT HOB ELEVATED. IV ACCESS NOTED AT R FRANCES HAND, #20g. SALINE LOCK. PATENT AND INTACT. ALL SAFETY MEASURES IN PLACE: BED LOCKED IN LOWEST POSITION. BED ALARM ON. CALL LIGHT WITHIN REACH. WILL CONTINUE TO MONITOR CLOSELY FOR ANY CHANGES.
--- NOTE | 2022-02-11 01:20 | NUR ---
RN OPENING NOTE RECEIVED PT FROM GELY TENA OF ER, PT CAME IN VIA KRISTEN. ON O2 VIA NC 3LPM. A/O X 4, CAN MAKE HIS NEED KNOWN. PT HAS SOB AT THIS TIME. KEPT HEAD OF THE BED ELEVATED. O2 SATURATION IS 97% UPON ADMISSION. IV ACCESS NOTED ON RIGHT HAND, #20g, SALINE LOCK. PATENT AND INTACT. ALL SAFETY MEASURES IN PLACE: BED LOCKED IN LOWEST POSITION. BED ALARM ON. CALL LIGHT WITHIN REACH. WILL CONTINUE TO MONITOR CLOSELY FOR ANY CHANGES.
--- NOTE | 2022-02-11 01:30 | NUR ---
0130 ECHO in progress at this time. Patient awake and verbally responsive. On O2 at 3l per NC.
[2022-02-11] MEDS: BLOOD SUGAR DIAGNOSTIC 1 EACH STRIP VI SCH ×5 (01:50→21:17)
[2022-02-11] MEDS: FUROSEMIDE 40 MG/4 ML VIAL IV SCH ×4 (01:53→17:19)
[2022-02-11] MEDS: ALBUTEROL FS 2.5 MG/0.5 ML VIAL.NEB NEB SCH ×4 (02:28→19:46)
[2022-02-11] MEDS: IPRATROPIUM NEB FS 0.5 MG/2.5 ML AMPUL.NEB IH SCH ×4 (02:28→19:46)
[2022-02-11 04:00] VITALS: BP 107/78
[2022-02-11] MEDS ORDERED: IPRATROPIUM/ALBUTEROL INHALER IH SCH (06:00)
--- NOTE | 2022-02-11 07:00 | NUR ---
RN NOTE RECEIVE PATIENT IN SITTING ON CHAIR ALERT ORIENTEDX4 VERBALLY RESPONSIVE ON 3L OXYGEN O2:100% IV SITE IS ON RIGHT HAND INTACT PATENT,AMBULATORY WITH ASSIST CONTINET TO BOWEL/BLADDER,SAFETY MEASURE IMPLEMENT,CALL LIGHT WITHIN REACH,ASSISTED PATIENT BACK TO BED,BED IN LOW POSITION AND LOCKED CONTINUE TO MONITOR.
--- NOTE | 2022-02-11 07:30 | NUR ---
RN CLOSING NOTE NO SIGNIFICANT CHANGE THROUGHOUT THE SHIFT. PT SITTING ON CHAIR, LEANING FORWARD FOR MAXIMUM LUNG EXPANSION. ON O2 VIA NC AT 3LPM. TOLERATING WELL. PT IS A/O X 4, ABLE TO MAKE HIS NEEDS KNOWN. TELE MONITOR SHOWS SR WITH HR IN THE 90s. O2 SAT IS AT 100%. IV ACCESS NOTED AT R FRANCES HAND, #20g. SALINE LOCK. PATENT AND INTACT. ALL DUE MEDS GIVEN. ALL NEEDS ATTENDED TO. SAFETY MEASURES IMPLEMENTED: BED LOCKED IN LOWEST POSITION. BED ALARM ON. CALL LIGHT WITHIN REACH. WILL ENDORSE TO AM SHIFT NURSE FOR [facility].
[2022-02-11] MEDS: PANTOPRAZOLE 40 MG TABLET.DR PO SCH (07:35)
[2022-02-11] MEDS: *INSULIN REGULAR(HUMULIN R)HUM 100 UNIT/ML VIAL SQ PRN ×2 (07:55→21:18)
[2022-02-11 08:00] VITALS: BP 107/76
[2022-02-11] MEDS: POTASSIUM CHLORIDE 20 MEQ TAB.PRT.SR PO SCH ×3 (08:04→17:20)
[2022-02-11] MEDS: ASPIRIN EC 81 MG TABLET.DR PO SCH (08:04)
[2022-02-11] MEDS: ISOSORBIDE MONONITRATE (30MG) 30 MG TAB.SR.24H PO SCH (08:05)
[2022-02-11] MEDS: APIXABAN 5 MG TABLET PO SCH ×3 (08:05→17:00)
[2022-02-11] MEDS ORDERED: SPIRONOLACTONE 25 MG TABLET PO SCH (09:00)
[2022-02-11] MEDS ORDERED: INSULIN LISPRO 10 UNIT SQ SCH (09:00)
[2022-02-11] MEDS ORDERED: LISINOPRIL (10MG) 10 MG TABLET PO SCH (09:00)
[2022-02-11] MEDS: LOSARTAN POTASSIUM 25 MG TABLET PO SCH (09:00)
[2022-02-11] MEDS: CARVEDILOL 12.5 MG TABLET PO SCH ×2 (09:14→17:00)
[2022-02-11 10:10] LABS: ABG BASE EXCESS 1.5 mmol/L; ABG OXYGEN SATURATION 97.6 % (92.0-98.5); ABG PCO2 31.9 mmHg (35.0-45.0); ABG PO2 90.9 mmHg (75.0-100.0); AaDO2 99.9 mmHg; COHb 1.2 % (0.5-1.5); MetHb 0.5 % (0.0-1.5); O2Hb 95.9 % (94.0-97.0); SITE, ABG Right Radial; VENT MODE, BG 3 L NC
[2022-02-11 12:00] VITALS: BP 95/62
[2022-02-11] MEDS: DIGOXIN 0.125 MG TABLET PO SCH (13:24)
[2022-02-11] MEDS: MORPHINE SULFATE INJ 2 MG/ML DISP.SYRIN IV PRN ×2 (15:55→21:21)
[2022-02-11 16:00] VITALS: BP 99/55
--- NOTE | 2022-02-11 18:50 | NUR ---
RN NOTE PATIENT REMAINS ON ALERT ORIENTEDX4 VERBALLY RESPONSIVE NO SOB NOT ACUTE DISTRESS NOTED,ALL DUE MEDS GIVEN MD ORDERED ALL NEEDS MET ENDORSE NEXT COMING SHIFT FOR CONTINUATION OF CARE.
--- NOTE | 2022-02-11 19:10 | NUR ---
RN NOTE RECEIVED PATIENT SEATED UPRIGHT IN CHAIR, AAO X 4, IN NO ACUTE DISTRESS AT THIS TIME. RESPIRATION UNLABORED, SATURATION AT 98% ON 3L VIA NC, SR ON THE MONITOR, HR IS 63. IV LINE AT R HAND 20G PATENT AND FLUSHING WELL, NO S/S OF INFECTION OR INFILTRATION. PATIENT IS CONTINENT AND INDEPENDENT WITH USE OF URINAL. SAFETY MEASURES IMPLEMENTED. PATIENT BED ALARM IS ON. HEAD OF BED ELEVATED. BED IS LOCKED, IN LOWEST POSITION AND SIDE RAILS UP. CALL LIGHT WITHIN REACH OF THE PATIENT. WILL CONTINUE TO MONITOR AND REASSESS FOR ANY CHANGES.
[2022-02-11 20:00] VITALS: BP 110/86
[2022-02-11] MEDS: ATORVASTATIN 40 MG TABLET PO SCH (21:17)
[2022-02-11] MEDS: INSULIN GLARGINE, 100 UNIT/ML CARTRIDGE SQ SCH (21:26)
[2022-02-12] VITALS: BP 92/65
[2022-02-12] MEDS: ALBUTEROL FS 2.5 MG/0.5 ML VIAL.NEB NEB SCH ×4 (01:41→19:58)
[2022-02-12] MEDS: IPRATROPIUM NEB FS 0.5 MG/2.5 ML AMPUL.NEB IH SCH ×4 (01:41→19:58)
[2022-02-12] MEDS: MORPHINE SULFATE INJ 2 MG/ML DISP.SYRIN IV PRN ×4 (02:32→21:58)
[2022-02-12 04:00] VITALS: BP 120/89
[2022-02-12 06:36] LABS: BASOPHILS % (AUTO) 0.7 % (0.0-2.0); EOSINOPHILS % (AUTO) 2.6 % (0.0-6.0); HEMATOCRIT 53 % (39-51); LYMPHOCYTES # (AUTO) 1.5 K/uL (0.8-4.8); LYMPHOCYTES % (AUTO) 29.5 % (20.0-44.0); MEAN CORPUSCULAR HGB CONC 32 g/dl (31.0-36.0); MEAN CORPUSCULAR VOLUME 84 fL (80-96); MONOCYTES # (AUTO) 0.4 K/uL (0.1-1.30); MONOCYTES % (AUTO) 8.7 % (2.0-12.0); NEUTROPHILS % (AUTO) 58.5 % (43.0-81.0); PLATELET COUNT (AUTO) 144 K/uL (150-450); RED BLOOD CELL COUNT(AUTO) 6.25 MIL/uL (4.5-6.0); WHITE BLOOD COUNT (AUTO) 5.2 K/uL (4.3-11.0)
--- NOTE | 2022-02-12 07:30 | NUR ---
TD RN OPENING NOTES: RECEIVED PATIENT SITTING AT THE EDGE OF THE BED ALERT AND ORIENTED X 4, IN NO ACUTE DISTRESS AT THIS TIME. RESPIRATION UNLABORED, SATURATION AT 100% ON 3L VIA NC, SR ON THE MONITOR, . IV LINE AT RH GAUGE 18 PATENT AND FLUSHED WELL. SAFETY MEASURES IMPLEMENTED. HEAD OF BED ELEVATED. BED IS LOCKED, IN LOWEST POSITION AND SIDE RAILS UP. WILL CONTINUE TO MONITOR AND REASSESS FOR ANY CHANGES.
[2022-02-12 08:00] VITALS: BP 119/66
[2022-02-12] MEDS: POTASSIUM CHLORIDE 20 MEQ TAB.PRT.SR PO SCH ×2 (08:11→17:48)
[2022-02-12] MEDS: BLOOD SUGAR DIAGNOSTIC 1 EACH STRIP VI SCH ×4 (08:11→21:50)
[2022-02-12] MEDS: FUROSEMIDE 40 MG/4 ML VIAL IV SCH ×3 (08:11→17:47)
[2022-02-12] MEDS: ASPIRIN EC 81 MG TABLET.DR PO SCH (08:11)
[2022-02-12] MEDS: PANTOPRAZOLE 40 MG TABLET.DR PO SCH (08:12)
[2022-02-12] MEDS: APIXABAN 5 MG TABLET PO SCH ×2 (08:13→17:48)
[2022-02-12] MEDS: LOSARTAN POTASSIUM 25 MG TABLET PO SCH (08:17)
[2022-02-12] MEDS: ISOSORBIDE MONONITRATE (30MG) 30 MG TAB.SR.24H PO SCH (08:18)
[2022-02-12] MEDS: CARVEDILOL 12.5 MG TABLET PO SCH ×2 (08:18→17:00)
[2022-02-12 12:00] VITALS: BP 105/64
[2022-02-12] MEDS: DIGOXIN 0.125 MG TABLET PO SCH (13:34)
[2022-02-12 14:29] LABS: BILIRUBIN,TOTAL 1.3 mg/dL (0.2-1.0); CALCIUM, SERUM 8.5 mg/dL (8.5-10.1); CREATININE 1.2 mg/dL (0.6-1.3); MAGNESIUM 1.8 mg/dL (1.8-2.4); PHOSPHORUS 4.9 mg/dL (2.5-4.9); POTASSIUM 4.3 mmol/L (3.5-5.1); TOTAL PROTEIN, SERUM 6.7 g/dL (6.4-8.2)
[2022-02-12 16:00] VITALS: BP 105/59
[2022-02-12] MEDS: INSULIN REGULAR, HUMAN 100 UNIT/ML 3 ML VIAL SQ PRN ×2 (18:10→21:53)
--- NOTE | 2022-02-12 19:15 | NUR ---
RN NOTES RECEIVED PT FOR CONTINUITY OF CARE. PATIENT A/OX4 IN NO S/SX OF ACUTE DISTRESS AT THIS TIME; CURRENTLY ON 3L OF 02 VIA NC WITH HUMIDIFIER; WITH 02 SAT >95% AT THIS TIME. WILL ENSURE SAFETY MEASURES WITHIN THE SHIFT. PATIENT BED ALARM IS ON. HEAD OF BED ELEVATED. BED IS LOCKED, IN LOWEST POSITION AND SIDE RAILS UP. CALL LIGHT WITHIN REACH OF THE PATIENT. APPLICABLE ISOLATION PRECAUTIONS IN PLACE. WILL CONTINUE TO MONITOR AND REASSESS FOR ANY CHANGES AND WILL CARRY OUT ANY ONGOING AND ACTIVE MD ORDER.
--- NOTE | 2022-02-12 19:31 | NUR ---
TD RN CLOSING NOTES: PATIENT SITTING AT THE EDGE OF THE BED ALERT AND ORIENTED X 4, IN NO ACUTE DISTRESS AT THIS TIME. RESPIRATION UNLABORED, SATURATION AT 100% ON 3L VIA NC, SR ON THE MONITOR, . VANESSA MIDLINE GAUGE 18 PATENT AND FLUSHED WELL. SAFETY MEASURES IMPLEMENTED. HEAD OF BED ELEVATED. BED IS LOCKED, IN LOWEST POSITION AND SIDE RAILS UP. WILL CONTINUE TO MONITOR AND REASSESS FOR ANY CHANGES.
--- NOTE | 2022-02-12 19:55 | NUR ---
RT PT RECVD SITTING UP AWAKE AND VERBAL ON 3 LPM NC WITH BUBBLE HUMIDIFIER. CLEAR/DIMINISHED BREATH SOUNDS, NEB TX GIVEN AND VINOD WELL. NON PRODUCTIVE COUGH. NO SOB OR RESPIRATORY DISTRESS NOTED AT THIS TIME.
[2022-02-12 20:00] VITALS: BP 105/71
[2022-02-12] MEDS: ATORVASTATIN 40 MG TABLET PO SCH (21:46)
[2022-02-12] MEDS: INSULIN GLARGINE, 100 UNIT/ML CARTRIDGE SQ SCH (21:53)
[2022-02-12 23:36] LABS: BILIRUBIN,URINE NEGATIVE (NEGATIVE); COLOR,URINE YELLOW (YELLOW); LEUKOCYTE ESTERASE ,URINE NEGATIVE (NEGATIVE); NITRITE, URINE NEGATIVE (NEGATIVE); PH,URINE 5.5 (5.0-8.0); PROTEIN,URINE 100 mg/dl (NEGATIVE); UGLUCOSE NEGATIVE (NEGATIVE)
[2022-02-13] VITALS: BP 105/76
[2022-02-13 00:13] LABS: CREATININE, URINE 62.6 MG/DL (30.0-125.0); URINE TOTAL PROTEIN 66.2 mg/dL (0-11.9)
[2022-02-13] MEDS: IPRATROPIUM NEB FS 0.5 MG/2.5 ML AMPUL.NEB IH SCH ×2 (01:48→07:27)
[2022-02-13] MEDS: ALBUTEROL FS 2.5 MG/0.5 ML VIAL.NEB NEB SCH ×2 (01:48→07:27)
[2022-02-13] MEDS: MORPHINE SULFATE INJ 2 MG/ML DISP.SYRIN IV PRN (03:27)
[2022-02-13 04:00] VITALS: BP 111/82
[2022-02-13 06:25] LABS: EOSINOPHIL,URINE None Seen
--- NOTE | 2022-02-13 06:36 | NUR ---
RN CLOSING NOTE: PATIENT REMAINS IN ROOM IN NO SIGNS OF RESPIRATORY DISTRESS, PATIENT STILL ON 3L OF 02 VIA NC ;TOLERATING WELL SATURATING @ >95% SP02. SAFETY MEASURES IMPLEMENTED, BED IN LOWEST POSITION, LOCKED, SIDE RAILS UP, CALL LIGHT WITHIN REACH. ALL NEEDS AND ORDERS ADDRESSED DURING THE SHIFT. IV ACCESS MAINTAINED INTACT, SECURED AND FLUSHING WELL. ALL DUE MEDS GIVEN ORDERED & SCHEDULED ; PATIENT TOLERATED WELL. PATIENT KEPT CLEAN AND COMFORTABLE WITHIN THE SHIFT. PATIENT ENDORSED TO INCOMING SHIFT RN WITH STABLE VITAL SIGN AND FOR CONTINUITY OF CARE.
--- NOTE | 2022-02-13 07:09 | NUR ---
TD RN OPENING NOTES: RECEIVED PATIENT SITTING AT THE EDGE OF THE BED ALERT AND ORIENTED X 4, IN NO ACUTE DISTRESS AT THIS TIME. RESPIRATION UNLABORED, SATURATION AT 100% ON 3L VIA NC, SR ON THE MONITOR, . IV LINE AT VANESSA MIDLINE GAUGE 18 PATENT AND FLUSHED WELL. SAFETY MEASURES IMPLEMENTED. HEAD OF BED ELEVATED. BED IS LOCKED, IN LOWEST POSITION AND SIDE RAILS UP. WILL CONTINUE TO MONITOR AND REASSESS FOR ANY CHANGES.
[2022-02-13] MEDS: BLOOD SUGAR DIAGNOSTIC 1 EACH STRIP VI SCH (07:24)
[2022-02-13] MEDS: INSULIN REGULAR, HUMAN 100 UNIT/ML 3 ML VIAL SQ PRN (07:33)
[2022-02-13] MEDS: PANTOPRAZOLE 40 MG TABLET.DR PO SCH (07:34)
[2022-02-13 08:00] VITALS: BP 123/80
[2022-02-13] MEDS: ASPIRIN EC 81 MG TABLET.DR PO SCH (08:37)
[2022-02-13] MEDS: FUROSEMIDE 40 MG/4 ML VIAL IV SCH (08:37)
[2022-02-13] MEDS: ISOSORBIDE MONONITRATE (30MG) 30 MG TAB.SR.24H PO SCH (08:37)
[2022-02-13] MEDS: POTASSIUM CHLORIDE 20 MEQ TAB.PRT.SR PO SCH (08:38)
[2022-02-13] MEDS: LOSARTAN POTASSIUM 25 MG TABLET PO SCH (08:38)
[2022-02-13] MEDS: APIXABAN 5 MG TABLET PO SCH (08:39)
[2022-02-13 08:43] VITALS: BP 123/80
[2022-02-13] MEDS: CARVEDILOL 12.5 MG TABLET PO SCH (08:43)
--- NOTE | 2022-02-13 09:25 | NUR ---
pattern puncher NOTES: PT REQUEST TO GO HOME, MADE AWARE THAT HE NEED TO STAY AT THE HOSPITAL PER MD ORDER, DR VANESSA AWARE THAT HE WANTS TO GO HOME HE SAID HE CAN LEAVE AMA IF HE WISHES,EXPLAINED RISK AND BENEFITS INSISIT TO GO HOME,SIGNED AMA, BELONGING LIST . MIDLINE OF RIGHT UPPER ARM WAS ROMOVED, SKIN INTACT, NO BLEEDING. ASSISTED HIM TO HIS SON CAR
[2022-02-15 12:06] LABS: *SPE A/G RATIO 0.9 (0.7-1.7); *SPE ALPHA-1-GLOBULIN 0.3 g/dL (0.0-0.4); *SPE ALPHA-2-GLOBULIN 0.7 g/dL (0.4-1.0); *SPE BETA GLOBULIN 1.3 g/dL (0.7-1.3); *SPE M-SPIKE Not Observed g/dL (Not Observed)
== END 2022-02-13 10:19 | disposition left against medical advice (07) | DRG 194 ==
LOC: ER 23:00 → TELE-TD 02-11 00:39
PROVIDERS: ADMIT Internal Medicine; ATTEND Internal Medicine
PROC: 05HB33Z Insertion of Infusion Device into Right Basilic Vein, Percutaneous Approach (ICD-10-PCS; principal; 2022-02-12)
DX: I13.0 Hypertensive heart and chronic kidney disease with heart failure and stage 1 through stage 4 chronic kidney disease, or unspecified chronic kidney disease (principal); N17.0 Acute kidney failure with tubular necrosis; J96.01 Acute respiratory failure with hypoxia; I50.23 Acute on chronic systolic (congestive) heart failure; Z20.822 Contact with and (suspected) exposure to COVID-19; E11.22 Type 2 diabetes mellitus with diabetic chronic kidney disease; Z95.810 Presence of automatic (implantable) cardiac defibrillator; Z90.49 Acquired absence of other specified parts of digestive tract; Z79.51 Long term (current) use of inhaled steroids; Z79.899 Other long term (current) drug therapy; Z79.4 Long term (current) use of insulin; Z79.82 Long term (current) use of aspirin; F17.200 Nicotine dependence, unspecified, uncomplicated; Z28.310 Unvaccinated for COVID-19; N18.9 Chronic kidney disease, unspecified; J44.9 Chronic obstructive pulmonary disease, unspecified; I42.8 Other cardiomyopathies; I34.0 Nonrheumatic mitral (valve) insufficiency; Z83.3 Family history of diabetes mellitus; Z79.01 Long term (current) use of anticoagulants; F19.11 Other psychoactive substance abuse, in remission; S09.90XS Unspecified injury of head, sequela; V89.2XXS Person injured in unspecified motor-vehicle accident, traffic, sequela; T44.5X5A Adverse effect of predominantly beta-adrenoreceptor agonists, initial encounter; Y92.9 Unspecified place or not applicable
CPT/HCPCS: 36415; 36600; 71045-TC; 76856-TC; 80048-TC; 80053-TC; 80076-TC; 82550-TC; 82570-TC; 82962-TC; 83735-TC; 83880; 83970; 84100-TC; 84155; 84155-TC; 84165; 84300-TC; 84484-TC; 85025-TC; 85730-TC; 87081-TC; 93307-TC; 94799-TC; C9803; G0378; J1815; J1940; J2270